=== PATIENT | female | born 1945 | race Caucasian/White ===

== ENCOUNTER 2017-05-12 13:12 | Inpatient (IN) ==
[2017-05-12] MEDS ORDERED: methylPREDNISolone 125 MG/2 ML VIAL IVP ONE (13:24)
[2017-05-12] MEDS ORDERED: Ipratropium/Albuterol Neb 3 ML IH ONE (13:24)
--- NOTE | 2017-05-12 13:53 | Emergency Department Note ---
Disposition Clinical Impression: Acute exacerbation of chronic obstructive airways disease, HCAP (healthcare- associated pneumonia) Disposition: Admitted As Inpatient Condition: Good Time of Disposition: 16:41 SOB HPI - General Chief Complaint: ED Shortness of Breath/Dyspnea Stated Complaint: "choked on lunch" Time Seen by Provider: 05/12/17 13:18 Source: EMS Mode of arrival: EMS Limitations: no limitations Nursing Notes Reviewed: Yes Vital Signs Reviewed: Yes - History of Present Illness Patient presents to the ED from the long-term stating that she tried to choke on Green beans because the long-term did not give her her breathing treatment, so she thought that that would make them give her one. States she has been having some shortness of breath over the last few days. States that she was diagnosed with pneumonia at [place] and supposedly was placed on antibiotics but has not been feeling any better since then. He cannot find any antibiotics in her medical record. She denies any fever. Does state she has a history of COPD. - Related Data Home Medications Medication Instructions Recorded Confirmed Acetaminophen [Tylenol] 650 mg PO Q4HR PRN 08/05/15 05/12/17 B Complex with Vitamin C [Vitamin 1 each PO DAILY 08/05/15 05/12/17 B-Complex with Vit C] Dorzolamide [Trusopt] 1 drop BOTH EYES DAILY 08/05/15 05/12/17 Guaifenesin [Mucinex] 600 mg PO Q12H PRN 08/05/15 05/12/17 Insulin DETEMIR [Levemir] 60 unit SQ HS 08/05/15 05/12/17 Ipratropium Neb [Atrovent Neb] 0.5 mg IH Q4HR PRN 08/05/15 05/12/17 Ipratropium/Albuterol Neb [Duoneb] 3 ml IH Q4H PRN 08/05/15 05/12/17 Latanoprost [Xalatan] 1 drop BOTH EYES HS 08/05/15 05/12/17 Loperamide [Imodium] 2 mg PO PER PKG DI PRN 08/05/15 05/12/17 Loratadine [Claritin] 10 mg PO DAILY PRN 08/05/15 05/12/17 Oxygen 2 l NS AD 08/05/15 05/12/17 Polyethylene Glycol 3350 [MiraLAX] 17 gm PO DAILY PRN 08/05/15 05/12/17 Prochlorperazine Maleate 5 mg PO Q8HR PRN 08/05/15 05/12/17 [Compazine] Trospium Chloride 20 mg PO BID 08/05/15 05/12/17 Atorvastatin Calcium [Lipitor] 20 mg PO HS 05/12/17 05/12/17 Brinzolamide 1% [Azopt] 1 drop BOTH EYES BID 05/12/17 05/12/17 Dextrose [Glucose] 33 gm PO AD PRN 05/12/17 05/12/17 Escitalopram Oxalate 5 mg PO DAILY 05/12/17 05/12/17 Fluticasone/Vilanterol [Breo 1 each IH DAILY 05/12/17 05/12/17 Ellipta 100-25 Mcg INH] Furosemide [Lasix] 20 mg PO DAILY PRN 05/12/17 05/12/17 Gabapentin [Neurontin] 300 mg PO TID 05/12/17 05/12/17 Glucagon,Human Recombinant 1 mg IM ONCE PRN 05/12/17 05/12/17 [Glucagon Emergency Kit] Guaifenesin [Tussin] 200 mg PO Q6H PRN 05/12/17 05/12/17 Insulin LISPRO [HumaLOG] 2 - 10 unit SQ BID 05/12/17 05/12/17 MOM Conc [Milk of Magnesia Conc] 30 ml PO DAILY PRN 05/12/17 05/12/17 Mag Hydrox/Al Hydrox/Simeth 10 ml PO Q4H PRN 05/12/17 05/12/17 [Antacid Suspension] OxyCODONE/APAP 5/325 [Percocet 1 each PO Q6HR PRN 05/12/17 05/12/17 5/325 MG] Phenyleph/Pramoxin/Glycr/W.pet 1 appl RC Q4H PRN 05/12/17 05/12/17 [Preparation H Cream] Polyvinyl Alcohol [Artificial 1 drop BOTH EYES Q6H PRN 05/12/17 05/12/17 Tears] levoFLOXacin [Levaquin] 500 mg PO DAILY 05/12/17 05/12/17 Previous Rx's Medication Instructions Recorded Lisinopril [Zestril] 40 mg PO DAILY #30 tablet 08/10/15 Metoprolol XL (24 HR) Succ [Toprol 25 mg PO DAILY #30 tab.er.24h 08/10/15 XL] Allergies Allergy/AdvReac Type Severity Reaction Status Date / Time aspirin [ASA] Allergy Rash Verified 05/12/17 13:21 Penicillins [PCN] Allergy Rash Verified 05/12/17 13:21 All systems ED: reviewed and negative except as stated. Constitutional: Denies: fever Respiratory: Reports: cough, dyspnea, wheezes, sputum production Gastrointestinal: Reports: constipation Past Medical History - Past Medical History Attestation: Yes The following information was validated with the patient. 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 - Social History Smoking Status: Former smoker Smokeless Tobacco Status: No Alcohol use: Reports: none Drug use: Reports: none Physical Exam - General Limitations: no limitations General appearance: alert, in no apparent distress - Head Head exam: atraumatic, normocephalic, normal inspection - Eye Eye exam: Present: normal appearance, PERRL, EOMI - ENT ENT exam: normal exam, normal oropharynx, mucous membranes moist - Neck Neck exam: Present: normal inspection, full ROM, trachea midline - Chest Chest inspection: Present: normal inspection, symmetric chest wall rise - Respiratory Respiratory exam: Present: wheezes. Absent: normal lung sounds bilaterally, respiratory distress - Cardiovascular Cardiovascular exam: Present: regular rate, normal rhythm, normal heart sounds - Abdominal Exam Abdominal exam: Present: soft, Non-Tender, distention (but obese). Absent: tenderness, guarding, rebound - Extremities Exam Extremities exam: Present: normal inspection, full ROM, pedal edema (trace) Course Course Narrative: Patient presenting with shortness of breath. States that she was treated for pneumonia recently with antibiotics, but we cannot find any record of this. We will check a chest x-ray, labs and likely admit. Vital Signs Temperature 98.9 F 05/12/17 13:17 Pulse Rate 92 05/12/17 13:17 Respiratory Rate 18 05/12/17 13:17 Blood Pressure 107/79 05/12/17 13:17 O2 Sat by Pulse Oximetry 100 05/12/17 13:17 Temperature 99.5 F 05/12/17 17:38 Pulse Rate 100 05/12/17 17:38 Respiratory Rate 20 05/12/17 17:38 Blood Pressure 156/79 05/12/17 17:38 O2 Sat by Pulse Oximetry 94 05/12/17 17:38 Oxygen Delivery Oxygen Delivery Room Air Shortness of Breath/Dyspnea - Medical Records Medical records reviewed: Yes I reviewed the patient's medical records. - Lab Data Lab results reviewed: Yes I reviewed the patient's lab results. Result diagrams: 05/12/17 13:55 05/12/17 13:55 Lab Results 05/12/17 05/12/17 05/12/17 Range/Units 13:55 13:55 13:55 WBC 9.0 (4.3-11.1) K/mcL RBC 4.13 (3.82-4.97) M/mcL Hgb 12.0 (11.5-15.4) g/dL Hct 39.6 (35.3-44.9) % MCV 95.9 (83.0-100.0) fL MCH 29.1 (28.0-33.3) pg MCHC 30.3 L (31.6-35.5) g/dL RDW 13.0 (11.5-14.5) % Plt Count 231 (140-400) K/mcL MPV 10.2 (9.4-12.4) fL Seg Neutrophils % 68.0 % Band Neutrophils % 2.0 (0-4) % Lymphocytes % 18.0 % Monocytes % 7.0 % Eosinophils % 4.0 % Basophils % 1.0 % Neutrophils # 6.3 (1.6-8.9) K/mcL Lymphocytes # 1.6 (0.6-4.6) K/mcL Monocytes # 0.6 (0.0-1.3) K/mcL Eosinophils # 0.4 (0.0-0.6) K/mcL Basophils # 0.1 (0.0-0.2) K/mcL Platelet Estimate Normal (Normal) PT 11.6 (9.4-12.1) Seconds INR 1.1 APTT 27.6 (26.0-36.0) Seconds Sodium 142 (136-145) mEq/L Potassium 4.6 (3.5-5.1) mEq/L Chloride 109 H (98-107) mEq/L Carbon Dioxide 28 (23-29) mEq/L BUN 21 (8-23) mg/dL Creatinine 1.21 H (0.60-1.20) mg/dL Est GFR ( Amer) 53 L (> 60) Est GFR (Non-Af Amer) 44 L (> 60) BUN/Creatinine Ratio 17 (6-26) Glucose 153 H (70-105) mg/dL Calculated Osmolality 300 (280-300) Lactic Acid (0.5-2.2) mmol/L Calcium 9.7 (8.6-10.3) mg/dL Troponin I (< 0.04) ng/mL B-Natriuretic Peptide (Less than 100) pg/mL Urine Color (Yellow) Urine Clarity (Clear) Urine pH (5.0-8.0) pH Units Ur Specific [place] (1.010-1.025) Urine Protein (Neg-Trace) mg/dL Urine Glucose (UA) (Normal) mg/dL Urine Ketones (Negative) mg/dL Urine Blood (Negative) Urine Nitrite (Negative) Urine Bilirubin (Negative) Urine Urobilinogen (Normal) mg/dL Ur Leukocyte Esterase (Negative) Ur Culture Indicated? (NO) 05/12/17 05/12/17 05/12/17 Range/Units 13:55 13:55 13:55 WBC (4.3-11.1) K/mcL RBC (3.82-4.97) M/mcL Hgb (11.5-15.4) g/dL Hct (35.3-44.9) % MCV (83.0-100.0) fL MCH (28.0-33.3) pg MCHC (31.6-35.5) g/dL RDW (11.5-14.5) % Plt Count (140-400) K/mcL MPV (9.4-12.4) fL Seg Neutrophils % % Band Neutrophils % (0-4) % Lymphocytes % % Monocytes % % Eosinophils % % Basophils % % Neutrophils # (1.6-8.9) K/mcL Lymphocytes # (0.6-4.6) K/mcL Monocytes # (0.0-1.3) K/mcL Eosinophils # (0.0-0.6) K/mcL Basophils # (0.0-0.2) K/mcL Platelet Estimate (Normal) PT (9.4-12.1) Seconds INR APTT (26.0-36.0) Seconds Sodium (136-145) mEq/L Potassium (3.5-5.1) mEq/L Chloride (98-107) mEq/L Carbon Dioxide (23-29) mEq/L BUN (8-23) mg/dL Creatinine (0.60-1.20) mg/dL Est GFR ( Amer) (> 60) Est GFR (Non-Af Amer) (> 60) BUN/Creatinine Ratio (6-26) Glucose (70-105) mg/dL Calculated Osmolality (280-300) Lactic Acid 1.7 (0.5-2.2) mmol/L Calcium (8.6-10.3) mg/dL Troponin I < 0.03 (< 0.04) ng/mL B-Natriuretic Peptide 29 (Less than 100) pg/mL Urine Color (Yellow) Urine Clarity (Clear) Urine pH (5.0-8.0) pH Units Ur Specific [place] (1.010-1.025) Urine Protein (Neg-Trace) mg/dL Urine Glucose (UA) (Normal) mg/dL Urine Ketones (Negative) mg/dL Urine Blood (Negative) Urine Nitrite (Negative) Urine Bilirubin (Negative) Urine Urobilinogen (Normal) mg/dL Ur Leukocyte Esterase (Negative) Ur Culture Indicated? (NO) 05/12/17 Range/Units 14:10 WBC (4.3-11.1) K/mcL RBC (3.82-4.97) M/mcL Hgb (11.5-15.4) g/dL Hct (35.3-44.9) % MCV (83.0-100.0) fL MCH (28.0-33.3) pg MCHC (31.6-35.5) g/dL RDW (11.5-14.5) % Plt Count (140-400) K/mcL MPV (9.4-12.4) fL Seg Neutrophils % % Band Neutrophils % (0-4) % Lymphocytes % % Monocytes % % Eosinophils % % Basophils % % Neutrophils # (1.6-8.9) K/mcL Lymphocytes # (0.6-4.6) K/mcL Monocytes # (0.0-1.3) K/mcL Eosinophils # (0.0-0.6) K/mcL Basophils # (0.0-0.2) K/mcL Platelet Estimate (Normal) PT (9.4-12.1) Seconds INR APTT (26.0-36.0) Seconds Sodium (136-145) mEq/L Potassium (3.5-5.1) mEq/L Chloride (98-107) mEq/L Carbon Dioxide (23-29) mEq/L BUN (8-23) mg/dL Creatinine (0.60-1.20) mg/dL Est GFR ( Amer) (> 60) Est GFR (Non-Af Amer) (> 60) BUN/Creatinine Ratio (6-26) Glucose (70-105) mg/dL Calculated Osmolality (280-300) Lactic Acid (0.5-2.2) mmol/L Calcium (8.6-10.3) mg/dL Troponin I (< 0.04) ng/mL B-Natriuretic Peptide (Less than 100) pg/mL Urine Color Yellow (Yellow) Urine Clarity Clear (Clear) Urine pH 6.0 (5.0-8.0) pH Units Ur Specific [place] 1.023 (1.010-1.025) Urine Protein Negative (Neg-Trace) mg/dL Urine Glucose (UA) Normal (Normal) mg/dL Urine Ketones Negative (Negative) mg/dL Urine Blood Negative (Negative) Urine Nitrite Negative (Negative) Urine Bilirubin Negative (Negative) Urine Urobilinogen Normal (Normal) mg/dL Ur Leukocyte Esterase Negative (Negative) Ur Culture Indicated? NO (NO) - Radiology Data Radiology results reviewed: Yes I reviewed the patient's radiology results. - EKG Data EKG attestation: Yes I reviewed and interpreted this EKG. EKG results narrative: Sinus rhythm, rate 88, MD interval 151, QRS 96, QTC 385, and normal axis, low voltage in precordial leads but no acute ischemic changes Attestation Statement - Attestation Attestation: I examined this patient and my medical decision-making was reviewed with the Resident Physician, Dr. Arellano. I agree with the documented findings, disposition and treatment plan as described except to the extent set forth below. Patient is a 72-year-old morbidly obese white female who resides in an extended care facility and has a history of COPD he was brought to the emergency department today by EMS for complaints of generalized fatigue, shortness of breath and cough. She was diagnosed with pneumonia around [place] time and states she completed a round of antibiotics but has not been feeling any better. She was acting out at the long-term today in an attempt to get a breathing treatment and states that she choked on her green beans to get the attention of nursing staff. Patient was in no acute respiratory distress on arrival, on 3 L nasal cannula oxygen room air sats 92-94%. I agree patient's physical exam findings as documented. X-ray shows a right lower lobe pneumonia, patient will be started on IV antibiotics and admitted for pneumonia and acute exacerbation of COPD.
[2017-05-12 14:05] LABS: Hematocrit 39.6 % (35.3-44.9); Mean Corpuscular HGB Conc 30.3 g/dL (31.6-35.5); Mean Corpuscular Hemoglobin 29.1 pg (28.0-33.3); Mean Corpuscular Volume 95.9 fL (83.0-100.0); Mean Platelet Volume 10.2 fL (9.4-12.4); Platelet Count 231 K/mcL (140-400); Red Blood Count 4.13 M/mcL (3.82-4.97)
[2017-05-12 14:15] LABS: INR 1.1; Prothrombin Time 11.6 Seconds (9.4-12.1)
[2017-05-12 14:17] LABS: Activated Partial Thrombo Time 27.6 Seconds (26.0-36.0)
[2017-05-12 14:22] LABS: Calcium 9.7 mg/dL (8.6-10.3); Potassium 4.6 mEq/L (3.5-5.1)
[2017-05-12 14:25] LABS: Bilirubin,Urine Negative (Negative); Blood,Urine Negative (Negative); Clarity,Urine Clear (Clear); Color,Urine Yellow (Yellow); Glucose,Urine (UA) Normal (Normal); Ketones,Urine Negative (Negative); Leukocyte Esterase,Urine Negative (Negative); Nitrite,Urine Negative (Negative); Protein,Urine Negative (Neg-Trace); Specific Gravity,Urine 1.023 (1.010-1.025); Urobilinogen,Urine Normal (Normal)
[2017-05-12] MEDS ORDERED: Levofloxacin 750 MG/150 ML 750 MG/150 ML BAG IVPB ONE (14:36)
[2017-05-12 14:38] LABS: Basophils # 0.1 K/mcL (0.0-0.2); Eosinophils # 0.4 K/mcL (0.0-0.6); Lymphocytes # 1.6 K/mcL (0.6-4.6); Monocytes # 0.6 K/mcL (0.0-1.3); Neutrophils # 6.3 K/mcL (1.6-8.9); Platelet Estimate Normal (Normal)
[2017-05-12] MEDS ORDERED: 0.9 % Sodium Chloride 1,000 ML IVC ONE (14:48)
--- NOTE | 2017-05-12 16:35 | Internal Med History&Physical ---
Date of Encounter: 06/06/17 Time of Encounter: 16:34 Assessment and Plan (1) Acute exacerbation of chronic obstructive airways disease Status: Acute - SOB due to *COpd exacerbation caused by URTI vs allergen exposure vs medication nonocompliance *Pneumonia - infiltrate on CXR PLAN: - Aerosols q 4 hr and PRN SOB - Solu-medrol 40 mg IV q 6 hr - O2 to keep SpO2 higher than 92% (SpO higher than 95% if CAD) - CBCD, BMP in AM - Sputum Gram stain, C+S - Tylenol 650 mg PO q 4-6 hr PRN pain/fever - Heparin 5000 U SQ BID - Home meds - check the list and restart - ABs (2) HCAP (healthcare-associated pneumonia) Status: Acute - SOB due to *Pneumonia Previous ABx Tx- , Structural lung disease- - Blood Cx - Urine Legionella antigen - Antibiotics - CBCD, CMP in AM - Tylenol 650 mg PO q 4-6 hr PRN pain or fever - Home meds - check the list and restart accordingly - Heparin 5000 U SQ BID (3) Diabetes Status: Acute Qualifiers: Diabetes mellitus type: type 2 Diabetes mellitus complication status: with kidney complications Diabetes mellitus complication detail: with chronic kidney disease Diabetes mellitus fdc insulin use: with superintendent marine oil terminal use Chronic kidney disease stage: stage 3 (moderate) Qualified Code(s): E11.22 - Type 2 diabetes mellitus with diabetic chronic kidney disease; N18.3 - Chronic kidney disease, stage 3 (moderate); N18.3 - Chronic kidney disease, stage 3 ( moderate); Z79.4 - emt intermediate (current) use of insulin; Z79.4 - emt intermediate ( current) use of insulin; Z79.4 - MCFP (current) use of insulin; Z79.4 - MCFP (current) use of insulin (4) Congestive heart failure Status: Acute Cont home meds Qualifiers: Congestive heart failure type: diastolic Congestive heart failure chronicity: acute on chronic Qualified Code(s): I50.33 - Acute on chronic diastolic (congestive) heart failure (5) DVT prophylaxis Status: Acute Heparin 5000 BID , SCDs Internal Medicine - H&P: HPI Chief complaint: SOB History of present illness: Ms. Moon is a 72 year old female withh h/o COPD presents to the ED from the senior living stating that she tried to choke on Green beans because the senior living did not give her her breathing treatment, so she thought that that would make them give her one. States she has been having some shortness of breath over the last few days. States that she was diagnosed with pneumonia at [place] and supposedly was placed on antibiotics but has not been feeling any better since then. He cannot find any antibiotics in her medical record. She denies any fever. Does state she has a history of COPD. Past Med Surg Social Fam HX - Past Medical History Medical history: CHF, COPD, coronary artery disease, diabetes, glaucoma, hyperlipidemia, hypertension, osteoporosis, renal disease Psychiatric history: anxiety, depression - Past Surgical History Surgical History: cataract, herniorrhaphy - Social History Smoking Status: Former smoker Smokeless Tobacco Status: No Alcohol use: none Drug use: none - Family History Father Living Status: Hx Family Endocrine Disorder: Yes (Diabetes) Mother Living Status: Hx Family Neurologic Disorders: Yes (Alzheimer's) Internal Medicine - H&P: Meds Acetaminophen [Tylenol] 650 mg PO Q4HR PRN 08/05/15 [History] B Complex with Vitamin C [Vitamin B-Complex with Vit C] 1 each PO DAILY [History] Dorzolamide [Trusopt] 1 drop BOTH EYES DAILY 08/05/15 [History] Guaifenesin [Mucinex] 600 mg PO Q12H PRN 08/05/15 [History] Insulin DETEMIR [Levemir] 60 unit SQ HS 08/05/15 [History] Ipratropium Neb [Atrovent Neb] 0.5 mg IH Q4HR PRN 08/05/15 [History] Ipratropium/Albuterol Neb [Duoneb] 3 ml IH Q4H PRN 08/05/15 [History] Latanoprost [Xalatan] 1 drop BOTH EYES HS 08/05/15 [History] Loperamide [Imodium] 2 mg PO PER PKG DI PRN 08/05/15 [History] Loratadine [Claritin] 10 mg PO DAILY PRN 08/05/15 [History] Oxygen 2 l NS AD 08/05/15 [History] Polyethylene Glycol 3350 [MiraLAX] 17 gm PO DAILY PRN 08/05/15 [History] Prochlorperazine Maleate [Compazine] 5 mg PO Q8HR PRN 08/05/15 [History] Trospium Chloride 20 mg PO BID 08/05/15 [History] Lisinopril [Zestril] 40 mg PO DAILY #30 tablet 08/10/15 [Rx] Metoprolol XL (24 HR) Succ [Toprol Xl] 25 mg PO DAILY #30 tab.er.24h 08/10/15 [ Rx] Atorvastatin Calcium [Lipitor] 20 mg PO HS 05/12/17 [History] Brinzolamide 1% [Azopt] 1 drop BOTH EYES BID 05/12/17 [History] Dextrose [Glucose] 33 gm PO AD PRN 05/12/17 [History] Escitalopram Oxalate 5 mg PO DAILY 05/12/17 [History] Fluticasone/Vilanterol [Breo Ellipta 100-25 Mcg INH] 1 each IH DAILY 05/12/17 [ History] Furosemide [Lasix] 20 mg PO DAILY PRN 05/12/17 [History] Gabapentin [Neurontin] 300 mg PO TID 05/12/17 [History] Glucagon,Human Recombinant [Glucagon Emergency Kit] 1 mg IM ONCE PRN 05/12/17 [ History] Guaifenesin [Tussin] 200 mg PO Q6H PRN 05/12/17 [History] Insulin LISPRO [HumaLOG] 2 - 10 unit SQ BID 05/12/17 [History] MOM Conc [MILK OF MAGNESIA conc] 30 ml PO DAILY PRN 05/12/17 [History] Mag Hydrox/Al Hydrox/Simeth [Antacid Suspension] 10 ml PO Q4H PRN 05/12/17 [ History] OxyCODONE/APAP 5/325 [Percocet 5/325 MG] 1 each PO Q6HR PRN 05/12/17 [History] Phenyleph/Pramoxin/Glycr/W.pet [Preparation H Cream] 1 appl RC Q4H PRN 05/12/17 [History] Polyvinyl Alcohol [Artificial Tears] 1 drop BOTH EYES Q6H PRN 05/12/17 [History] levoFLOXacin [Levaquin] 500 mg PO DAILY 05/12/17 [History] Acetaminophen [Tylenol] 650 mg PO Q6HR PRN tablet 05/15/17 [Rx] Levofloxacin [Levaquin] 500 mg PO DAILY #5 tablet 05/15/17 [Rx] 3 Allergy/AdvReac Type Severity Reaction Status Date / Time aspirin [ASA] Allergy Rash Verified 05/12/17 13:21 Penicillins [PCN] Allergy Rash Verified 05/12/17 13:21 All Systems PM: A 10-system review of systems was performed and is negative for pertinent findings except as documented above in the HPI. - Constitutional Vitals: Temp Pulse Resp BP Pulse Ox 98.9 F 93 14 146/86 95 05/12/17 13:17 05/12/17 16:21 05/12/17 16:30 05/12/17 16:30 05/12/17 16:21 Internal Med - H&P Results - Labs CBC & Chem 7: 05/13/17 01:24 05/15/17 08:46
[2017-05-12] MEDS ORDERED: Ondansetron 4 MG/2 ML VIAL IVP PRN (16:38)
[2017-05-12] MEDS ORDERED: *HR* Morphine 2 MG/ML SYRINGE IVP PRN (16:38)
[2017-05-12] MEDS ORDERED: Ondansetron ODT 4 MG TAB.RAPDIS SL PRN (16:38)
[2017-05-12] MEDS ORDERED: Mag Hydrox/Al Hydrox/Simeth 30 ML UDC PO PRN ×2 (16:38→19:51)
[2017-05-12] MEDS ORDERED: *HR* HYDROmorphone (PF) 1 MG/ML SYRINGE IVP PRN (16:38)
[2017-05-12] MEDS ORDERED: Naloxone 0.4 MG/ML INJ IVP PRN (16:38)
[2017-05-12] MEDS ORDERED: Acetaminophen 325 MG TABLET PO PRN ×2 (16:38→19:51)
[2017-05-12] MEDS ORDERED: Vancomycin 1,000 MG in D5% in Water 250 ML IVPB ONE (16:40)
[2017-05-12] MEDS: 0.9 % Sodium Chloride 1,000 ML IVC SCH (17:48)
[2017-05-12] MEDS: MethylPREDNISolone 40 MG/ML VIAL IVP SCH ×2 (18:23→23:50)
[2017-05-12] MEDS ORDERED: Artificial Tears SOLN 15 ML BOTTLE BOTH EYES PRN (19:51)
[2017-05-12] MEDS ORDERED: GuaiFENesin Liq 200 MG/10 ML UDC PO PRN (19:51)
[2017-05-12] MEDS ORDERED: MOM Conc 10 ML UD.LIQ PO PRN (19:51)
[2017-05-12] MEDS ORDERED: Loratadine 10 MG TABLET PO PRN (19:51)
[2017-05-12] MEDS ORDERED: *HR* OxyCODONE/APAP 5/325 TABLET PO PRN (19:51)
[2017-05-12] MEDS ORDERED: *HR* Dextrose 50 % in Water (Syg) 50 ML SYRINGE IVP PRN (19:55)
[2017-05-12] MEDS ORDERED: Dextrose Gel 15 GM/37.5 ML TUBE PO PRN ×2 (19:55)
[2017-05-12] MEDS ORDERED: D5% in Water 1,000 ML IVC PRN (19:55)
[2017-05-12] MEDS: Ipratropium/Albuterol Neb 3 ML IH SCH ×2 (20:13→22:10)
[2017-05-12] MEDS ORDERED: Insulin LISPRO 300 UNITS/3 ML VIAL SQ SCH (21:00)
[2017-05-12] MEDS: Gabapentin 300 MG CAPSULE PO SCH (22:06)
[2017-05-12] MEDS: Insulin DETEMIR 100 UNIT/ML X5UNITS SQ SCH (22:07)
[2017-05-12] MEDS: Brinzolamide 1% 10 ML BOTTLE BOTH EYES SCH (22:08)
[2017-05-12 23:02] LABS: Bilirubin,Urine Negative (Negative); Blood,Urine Negative (Negative); Clarity,Urine Clear (Clear); Color,Urine Yellow (Yellow); Glucose,Urine (UA) >=1000 mg/dL (Normal); Ketones,Urine Negative (Negative); Leukocyte Esterase,Urine Negative (Negative); Nitrite,Urine Negative (Negative); Protein,Urine Negative (Neg-Trace); Specific Gravity,Urine > 1.030 (1.010-1.025); Urobilinogen,Urine Normal (Normal)
[2017-05-13 01:30] LABS: Hematocrit 38.6 % (35.3-44.9); Hemoglobin 11.7 g/dL (11.5-15.4); Mean Corpuscular HGB Conc 30.3 g/dL (31.6-35.5); Mean Corpuscular Hemoglobin 28.5 pg (28.0-33.3); Mean Corpuscular Volume 94.1 fL (83.0-100.0); Mean Platelet Volume 10.4 fL (9.4-12.4); Platelet Count 235 K/mcL (140-400); Red Cell Distribution Width 12.9 % (11.5-14.5)
[2017-05-13 01:35] LABS: INR 1.1; Prothrombin Time 11.7 Seconds (9.4-12.1)
[2017-05-13 01:38] LABS: Activated Partial Thrombo Time 27.7 Seconds (26.0-36.0)
[2017-05-13 01:44] LABS: Albumin 3.2 g/dL (3.5-5.7); Albumin/Globulin Ratio 1.1 (1.1-2.2); Bilirubin,Total 0.2 mg/dL (0.3-1.0); Calcium 9.7 mg/dL (8.6-10.3); Chol/HDL Ratio 3.9 (0-4.9); Globulin 2.9 g/dL (2.4-3.5); Magnesium 1.6 mg/dL (1.6-2.6); Phosphorous 3.2 mg/dL (2.7-4.5); Potassium 5.4 mEq/L (3.5-5.1); Total Protein 6.1 g/dL (6.4-8.9)
[2017-05-13] MEDS: Ipratropium/Albuterol Neb 3 ML IH SCH ×4 (04:42→22:48)
[2017-05-13] MEDS ORDERED: Insulin Human Regular 10 UNIT in 0.9 % Sodium Chloride 10 ML IV ONE (05:07)
[2017-05-13] MEDS: MethylPREDNISolone 40 MG/ML VIAL IVP SCH ×4 (05:44→23:25)
[2017-05-13] MEDS ORDERED: Insulin LISPRO 300 UNITS/3 ML VIAL SQ SCH (07:30)
[2017-05-13] MEDS: Gabapentin 300 MG CAPSULE PO SCH ×3 (08:19→20:42)
[2017-05-13] MEDS: Metoprolol XL (24 HR) Succ 25 MG TAB.ER.24H PO SCH (08:19)
[2017-05-13] MEDS: Vitamin B Complex/Vit C/Vit E 1 EACH TABLET PO SCH (08:19)
[2017-05-13] MEDS: Brinzolamide 1% 10 ML BOTTLE BOTH EYES SCH ×2 (08:25→20:43)
[2017-05-13] MEDS: Dorzolamide OPTH 10 ML BOTTLE BOTH EYES SCH (08:25)
[2017-05-13] MEDS: Insulin DETEMIR 100 UNIT/ML X5UNITS SQ SCH ×2 (08:25→20:42)
[2017-05-13] MEDS: Insulin LISPRO 300 UNITS/3 ML VIAL SQ SCH ×5 (08:25→20:42)
[2017-05-13] MEDS ORDERED: levoFLOXacin 500 MG TABLET PO SCH (09:00)
[2017-05-13] MEDS: 0.9 % Sodium Chloride 1,000 ML IVC SCH (09:59)
[2017-05-13] MEDS: Vancomycin 1,250 MG in D5% in Water 250 ML IVPB SCH (16:01)
--- NOTE | 2017-05-13 16:08 | Internal Med Progress Note ---
Date of Encounter: 05/13/17 Time of Encounter: 16:05 - Assessment and plan (1) HCAP (healthcare-associated pneumonia) Current Visit: Yes Status: Acute Assessment and plan: Continue broad-spectrum coverage with antibiotics. She still requiring 3.5 L of nasal cannula. Continue to titrate down the oxygen as tolerated await cultures and sensitivities (2) Acute exacerbation of chronic obstructive airways disease Current Visit: Yes Status: Acute Assessment and plan: Initiate breathing treatments with duonebs every 4 to 6 hours while awake monitor respiratory status closely (3) Insulin dependent diabetes mellitus Current Visit: No Status: Chronic Assessment and plan: Continue sliding scale and Accu checks with meals. Emphasized on tight glycemic control given healthcare acquired pneumonia -patient wishes to cooperate - Time Spent With Patient 25 - 35 minutes - Subjective Interval history: Patient extremely teary-eyed. She is frustrated with her multiple pen[facility]entiary visits and did not feel she received the care she needed over there. She does feel short of breath still. Denies any new fevers - Constitutional Vitals: Temp Pulse Resp BP Pulse Ox 98.4 F 93 17 133/73 96 05/13/17 11:59 05/13/17 11:59 05/13/17 11:59 05/13/17 11:59 05/13/17 11:59 Exam: General , Alert , oriented, moderate distress HEENT- PERRLA. EOMI CVS- S1S2 N, No Murmurs, Rubs, gallops, No JVD RS- course rhonchi heard bilaterally across both lung g[place] Abdomen- Soft NT ND, bowel sounds heard across all 4 quadrants Neuro- No Focal deficits appreciated, CN 2-12 intact, Motors- power 5/5 UE, 5/5 LE Bilaterally, Sensations intact Extremeties- 1+ pitting edema and bilateral lower extremities Internal Medicine: Result - Labs CBC & Chem 7: 05/13/17 01:24 05/13/17 01:24 Labs: Short CBC 05/13/17 Range/Units 01:24 WBC 9.5 (4.3-11.1) K/mcL Hgb 11.7 (11.5-15.4) g/dL Hct 38.6 (35.3-44.9) % Plt Count 235 (140-400) K/mcL BMP 05/13/17 01:24 Sodium 136 Potassium 5.4 H Chloride 104 Carbon Dioxide 24 BUN 27 H Creatinine 1.30 H Glucose 446 H Calcium 9.7 Cardiac Enzymes 05/12/17 05/13/17 05/13/17 Range/Units 19:12 01:24 08:28 Troponin I < 0.03 < 0.03 < 0.03 (< 0.04) ng/mL Liver Function 05/13/17 Range/Units 01:24 Total Bilirubin 0.2 L (0.3-1.0) mg/dL AST 11 L (13-39) Units/L ALT 17 (7-52) Units/L Alkaline Phosphatase 90 (34-104) Units/L Albumin 3.2 L (3.5-5.7) g/dL Urine 05/12/17 Range/Units 20:45 Urine Color Yellow (Yellow) Urine Clarity Clear (Clear) Urine pH 6.0 (5.0-8.0) pH Units Ur Specific [place] > 1.030 H (1.010-1.025) Urine Protein Negative (Neg-Trace) mg/dL Urine Glucose (UA) >=1000 H (Normal) mg/dL - ABG Interpretation ABG results: PT/INR, D-dimer PT 11.7 Seconds (9.4-12.1) 05/13/17 01:24 Consult Discharge Plan - Plan Referrals: Lauro Hogue MD [Primary Care Provider] -
--- NOTE | 2017-05-13 16:49 | Electrocardiograph Report ---
[place] [id number] Test Date: 2017-05-12 Pat Name: Marlene Moon Department: 103 Room: [facility] Gender: F Browning Processor: ETELVINA : 1945 Requested By: Jason Arellano Order Number: [id number] Reading MD: Kvng Botello DO Measurements Intervals [place] Rate: 88 P: -44 WI: 151 QRS: 17 QRSD: 96 T: 49 QT: 340 QTc: 385 Interpretive Statements SINUS RHYTHM LOW QRS VOLTAGE IN PRECORDIAL LEADS BASELINE ARTIFACT Electronically Signed On 05-13-2017 16:48:06 EST by Kvng Botello DO
[2017-05-13] MEDS ORDERED: Vancomycin 1,000 MG in D5% in Water 250 ML IVPB SCH (18:00)
[2017-05-14] MEDS: Vancomycin 1,250 MG in D5% in Water 250 ML IVPB SCH (02:35)
[2017-05-14] MEDS: Ipratropium/Albuterol Neb 3 ML IH SCH ×4 (04:36→22:17)
[2017-05-14] MEDS: MethylPREDNISolone 40 MG/ML VIAL IVP SCH ×3 (05:49→18:11)
[2017-05-14] MEDS: Insulin LISPRO 300 UNITS/3 ML VIAL SQ SCH ×4 (07:46→20:47)
[2017-05-14] MEDS: Insulin DETEMIR 100 UNIT/ML X5UNITS SQ SCH ×2 (09:25→20:47)
[2017-05-14] MEDS: Vitamin B Complex/Vit C/Vit E 1 EACH TABLET PO SCH (10:50)
[2017-05-14] MEDS: Metoprolol XL (24 HR) Succ 25 MG TAB.ER.24H PO SCH (10:50)
[2017-05-14] MEDS: Gabapentin 300 MG CAPSULE PO SCH ×3 (10:50→20:47)
[2017-05-14] MEDS: Brinzolamide 1% 10 ML BOTTLE BOTH EYES SCH ×2 (10:51→20:48)
[2017-05-14] MEDS: Dorzolamide OPTH 10 ML BOTTLE BOTH EYES SCH (10:52)
--- NOTE | 2017-05-14 14:26 | Internal Med Progress Note ---
<Rocky Scott - Last Filed: 05/14/17 14:24> Date of Encounter: 05/14/17 Time of Encounter: 09:23 - Assessment and plan (1) HCAP (healthcare-associated pneumonia) Current Visit: Yes Status: Acute Assessment and plan: Continue broad-spectrum coverage with antibiotics. She still requiring 3.5 L of nasal cannula. Continue to titrate down the oxygen as tolerated. Patient is on day 3 of Levaquin and we will now stop the vancomycin and keep her on Levaquin. All blood cultures and influenza swabs were negative. PT and OT have evaluated the patient but patient states that she does not want to be evaluated by them. We are currently trying to set up patient to go back to his nursing home facility as she does not like her current one. We will await social work's recommendations for this. (2) Acute exacerbation of chronic obstructive airways disease Current Visit: Yes Status: Acute Assessment and plan: Initiate breathing treatments with duonebs every 4 to 6 hours while awake Continue 40 mg daily steroids. monitor respiratory status (3) Congestive heart failure Current Visit: No Status: Acute Assessment and plan: Continue home meds Qualifiers: Congestive heart failure type: diastolic Congestive heart failure chronicity: acute on chronic Qualified Code(s): I50.33 - Acute on chronic diastolic (congestive) heart failure (4) Diabetes Current Visit: No Status: Acute Assessment and plan: Continue patient on sliding scale. Will continue to try to get regular Accu- Cheks. Patient is declining these will continue to try. Patient does have history of uncontrolled and noncompliant diabetes. Qualifiers: Diabetes mellitus type: type 2 Diabetes mellitus complication status: with kidney complications Diabetes mellitus complication detail: with chronic kidney disease Diabetes mellitus senior care insulin use: with rat exterminator use Chronic kidney disease stage: stage 3 (moderate) Qualified Code(s): E11.22 - Type 2 diabetes mellitus with diabetic chronic kidney disease; N18.3 - Chronic kidney disease, stage 3 (moderate); N18.3 - Chronic kidney disease, stage 3 ( moderate); Z79.4 - terminal press operator (current) use of insulin; Z79.4 - terminal press operator ( current) use of insulin; Z79.4 - alf (current) use of insulin; Z79.4 - alf (current) use of insulin (5) DVT prophylaxis Current Visit: No Status: Acute Assessment and plan: 5000 units heparin subcutaneous twice a day - Subjective Interval history: Patient states she did well overnight there are no new events that occurred. Says she still having no chest pain or shortness of breath, abdominal pain, changes in bowel movements. Patient states she is still very weak and weight and wets the bed and she does not want to do physical therapy or occupational therapy. She says she is better when she gets her pain medications. Patient says her legs are not hurting as bad as they were. Seems to be getting better. Patient otherwise has no complaints. No overnight events. - Constitutional Vitals: Temp Pulse Resp BP Pulse Ox 97.7 F 97 16 145/79 97 05/14/17 10:50 05/14/17 10:50 05/14/17 10:50 05/14/17 10:50 05/14/17 10:50 General appearance: Present: A&O X 3, morbidly obese, no acute distress, answers questions appropriately - Head Head exam: Present: atraumatic, normocephalic - Eye Eye exam: Present: PERRL, conjuntiva pink, sclera anicteric Pupils: Present: PERRL - Neck Neck exam general surgery: Present: supple, trachea midline. Absent: lymphadenopathy - Respiratory Respiratory exam: Present: decreased breath sounds, wheezes. Absent: accessory muscle use, rales, respiratory distress, rhonchi - Cardiovascular Cardiovascular exam: Present: RRR, +S1, +S2. Absent: diastolic murmur, gallop, rubs, systolic murmur - GI/Abdominal GI/Abdominal exam: Present: normal bowel sounds, soft, no peritoneal signs. Absent: distended, tenderness - Extremities Exam Extremities exam: Present: warm, radial pulses palpable and symmetrical. Absent : calf tenderness, cyanotic, pedal edema - Neurological Exam Neurological exam: Present: CN II-XII intact, oriented X3, no focal deficits. Absent: pronater drift, facial droop, speech deficit - Skin Skin exam: Present: dry, intact Internal Medicine: Result - Labs CBC & Chem 7: 05/13/17 01:24 05/13/17 01:24 - ABG Interpretation ABG results: PT/INR, D-dimer PT 11.7 Seconds (9.4-12.1) 05/13/17 01:24 Consult Discharge Plan - Plan Referrals: Lauro Hogue MD [Primary Care Provider] - <Jeannine Perry - Last Filed: 05/14/17 16:26> Date of Encounter: 05/14/17 - Assessment and plan (1) HCAP (healthcare-associated pneumonia) Current Visit: Yes Status: Acute (2) Acute exacerbation of chronic obstructive airways disease Current Visit: Yes Status: Acute (3) Insulin dependent diabetes mellitus Current Visit: No Status: Chronic - Constitutional Vitals: Temp Pulse Resp BP Pulse Ox 97.7 F 97 16 145/79 97 05/14/17 10:50 05/14/17 10:50 05/14/17 10:50 05/14/17 10:50 05/14/17 10:50 Internal Medicine: Result - Labs CBC & Chem 7: 05/13/17 01:24 05/13/17 01:24 - ABG Interpretation ABG results: PT/INR, D-dimer PT 11.7 Seconds (9.4-12.1) 05/13/17 01:24 - Attending Attestation I saw and evaluated the patient at bedside. I have reviewed the progress note obtained and documented by the resident and personally participated in the mccullough components. I have discussed the case and management of the patient's care. I agree with the findings and plan of care.
[2017-05-14] MEDS ORDERED: Levofloxacin 500 MG/100 ML 500 MG/100 ML BAG IVPB SCH (15:00)
[2017-05-15] MEDS: MethylPREDNISolone 40 MG/ML VIAL IVP SCH ×3 (01:02→11:26)
[2017-05-15] MEDS: Ipratropium/Albuterol Neb 3 ML IH SCH ×2 (04:09→10:25)
[2017-05-15] MEDS: Gabapentin 300 MG CAPSULE PO SCH (09:08)
[2017-05-15] MEDS: Vitamin B Complex/Vit C/Vit E 1 EACH TABLET PO SCH (09:08)
[2017-05-15] MEDS: Insulin DETEMIR 100 UNIT/ML X5UNITS SQ SCH (09:09)
[2017-05-15] MEDS: Metoprolol XL (24 HR) Succ 25 MG TAB.ER.24H PO SCH (09:09)
[2017-05-15] MEDS: Brinzolamide 1% 10 ML BOTTLE BOTH EYES SCH (09:10)
[2017-05-15] MEDS: Dorzolamide OPTH 10 ML BOTTLE BOTH EYES SCH (09:11)
[2017-05-15] MEDS: Insulin LISPRO 300 UNITS/3 ML VIAL SQ SCH ×2 (09:12→11:26)
[2017-05-15 09:42] LABS: Calcium 9.5 mg/dL (8.6-10.3); Potassium 5.1 mEq/L (3.5-5.1)
--- NOTE | 2017-05-15 11:04 | Discharge Summary ---
<Rocky Scott - Last Filed: 05/15/17 13:13> Date of Encounter: 05/15/17 Time of Encounter: 11:03 - Discharge Diagnosis (1) HCAP (healthcare-associated pneumonia) Priority: Primary Status: Acute (2) Acute exacerbation of chronic obstructive airways disease Priority: Secondary Status: Acute (3) Congestive heart failure Priority: Secondary Status: Acute Qualifiers: Congestive heart failure type: diastolic Congestive heart failure chronicity: acute on chronic Qualified Code(s): I50.33 - Acute on chronic diastolic (congestive) heart failure (4) Diabetes Priority: Secondary Status: Acute Qualifiers: Diabetes mellitus type: type 2 Diabetes mellitus complication status: with kidney complications Diabetes mellitus complication detail: with chronic kidney disease Diabetes mellitus care home insulin use: with vermin exterminator use Chronic kidney disease stage: stage 3 (moderate) Qualified Code(s): E11.22 - Type 2 diabetes mellitus with diabetic chronic kidney disease; N18.3 - Chronic kidney disease, stage 3 (moderate); N18.3 - Chronic kidney disease, stage 3 ( moderate); Z79.4 - intermodal customer service (current) use of insulin; Z79.4 - intermodal customer service ( current) use of insulin; Z79.4 - [facility] (current) use of insulin; Z79.4 - intermodal customer service (current) use of insulin (5) DVT prophylaxis Priority: Secondary Status: Acute - Discharge Medications Prescriptions: Levofloxacin [Levaquin] 500 mg PO DAILY #5 tablet Home Medications: Acetaminophen [Tylenol] 650 mg PO Q4HR PRN 08/05/15 [History] B Complex with Vitamin C [Vitamin B-Complex with Vit C] 1 each PO DAILY [History] Dorzolamide [Trusopt] 1 drop BOTH EYES DAILY 08/05/15 [History] Guaifenesin [Mucinex] 600 mg PO Q12H PRN 08/05/15 [History] Insulin DETEMIR [Levemir] 60 unit SQ HS 08/05/15 [History] Ipratropium Neb [Atrovent Neb] 0.5 mg IH Q4HR PRN 08/05/15 [History] Ipratropium/Albuterol Neb [Duoneb] 3 ml IH Q4H PRN 08/05/15 [History] Latanoprost [Xalatan] 1 drop BOTH EYES HS 08/05/15 [History] Loperamide [Imodium] 2 mg PO PER PKG DI PRN 08/05/15 [History] Loratadine [Claritin] 10 mg PO DAILY PRN 08/05/15 [History] Oxygen 2 l NS AD 08/05/15 [History] Polyethylene Glycol 3350 [MiraLAX] 17 gm PO DAILY PRN 08/05/15 [History] Prochlorperazine Maleate [Compazine] 5 mg PO Q8HR PRN 08/05/15 [History] Trospium Chloride 20 mg PO BID 08/05/15 [History] Lisinopril [Zestril] 40 mg PO DAILY #30 tablet 08/10/15 [Rx] Metoprolol XL (24 HR) Succ [Toprol Xl] 25 mg PO DAILY #30 tab.er.24h 08/10/15 [ Rx] Atorvastatin Calcium [Lipitor] 20 mg PO HS 05/12/17 [History] Brinzolamide 1% [Azopt] 1 drop BOTH EYES BID 05/12/17 [History] Dextrose [Glucose] 33 gm PO AD PRN 05/12/17 [History] Escitalopram Oxalate 5 mg PO DAILY 05/12/17 [History] Fluticasone/Vilanterol [Breo Ellipta 100-25 Mcg INH] 1 each IH DAILY 05/12/17 [ History] Furosemide [Lasix] 20 mg PO DAILY PRN 05/12/17 [History] Gabapentin [Neurontin] 300 mg PO TID 05/12/17 [History] Glucagon,Human Recombinant [Glucagon Emergency Kit] 1 mg IM ONCE PRN 05/12/17 [ History] Guaifenesin [Tussin] 200 mg PO Q6H PRN 05/12/17 [History] Insulin LISPRO [HumaLOG] 2 - 10 unit SQ BID 05/12/17 [History] MOM Conc [MILK OF MAGNESIA conc] 30 ml PO DAILY PRN 05/12/17 [History] Mag Hydrox/Al Hydrox/Simeth [Antacid Suspension] 10 ml PO Q4H PRN 05/12/17 [ History] OxyCODONE/APAP 5/325 [Percocet 5/325 MG] 1 each PO Q6HR PRN 05/12/17 [History] Phenyleph/Pramoxin/Glycr/W.pet [Preparation H Cream] 1 appl RC Q4H PRN 05/12/17 [History] Polyvinyl Alcohol [Artificial Tears] 1 drop BOTH EYES Q6H PRN 05/12/17 [History] levoFLOXacin [Levaquin] 500 mg PO DAILY 05/12/17 [History] Acetaminophen [Tylenol] 650 mg PO Q6HR PRN tablet 05/15/17 [Rx] Levofloxacin [Levaquin] 500 mg PO DAILY #5 tablet 05/15/17 [Rx] Allergies/Adverse Reactions: 3 Allergy/AdvReac Type Severity Reaction Status Date / Time aspirin [ASA] Allergy Rash Verified 05/12/17 13:21 Penicillins [PCN] Allergy Rash Verified 05/12/17 13:21 Date of admission: 05/12/17 16:38 Primary care physician: Lauro Hogue MD Consults: 05/13/17 09:47 Consult to Specialties Operator [CONS] Routine Reason for SW Consult: D/C planning 05/13/17 13:47 Consult to Occupational Therapy [CONS] Routine Comment: Evaluate, develop and implement POC Reason for Consult: Eval and treat Consult to Physical Therapy [CONS] Routine Comment: Evaluate, develop and implement POC Reason for Consult: Eval and treat Discharging clinician: Rocky Scott Anticipated date of discharge: 05/15/17 - Patient Status Disposition: Transfer SNF Condition: Good Functional capacity at discharge: uses cane/walker Overall status at discharge: patient is progressing back to baseline - Discharge Instructions Instructions: Chronic Obstructive Pulmonary Disease (DC), Pneumonia (DC) Follow Up With: Lauro Hogue MD [Primary Care Provider] - - Diet and Activity Activity: as per physical therapy, wear oxygen at all times Diet: advance to your usual diet, diabetic diet Interval History: Patient seen and evaluated today. While seeing her she was lying in bed asleep. So that she is not having any other complaints she is not having any shortness of breath or chest pain or fevers or chills or abdominal pain or urinary complaints or changes in bowel movements. She is not having any leg pain or leg swelling. Patient states having no nausea or vomiting. Says nothing has happened overnight. She declined having her insulin as she said she is not a pin cushion and does not want acute being poked. Patient did eat just today and said that she expects her blood sugar to be high. She says that she normally does this not getting insulin and then located on insulin. Her blood sugars will normalize. Patient otherwise having no complaints. There are no overnight events. Hospital course: Ms. Moon is a 72 year old female history of being diagnosed with pneumonia [place] and was placed on antibiotics. Although those were not able to be found on record. Patient presented as she choked on green beans because the intermediate did not give her breathing treatment that she wanted. After being evaluated in the emergency department and they diagnosed her with HCAP. Her chest x-ray did show left lower lobe pneumonia And started her on vancomycin and Levaquin. She is on vancomycin for 3 days while she was here. We will continue the Levaquin for 5 more days so she does a seven-day treatment. Patient did have elevated blood sugars here as she Declining having her insulin given and she said she did not want to be poked anymore. We explained that it is important for her to get the insulin as this does help with her blood sugar problem. Patient did have one episode of hyperkalemia but the insulin has dropped his back to normal. Patient's blood cultures came back with no growth. Were unable to get a sputum culture. She was given heparin for DVT prophylaxis. She also is on Solu-Medrol 40 mg IV every 6 hours. She also got aerosols every 4 hours these is all due to her history of having COPD. Patient did take her last dose of insulin before being discharged. We had to talk her into it due to her having elevated blood sugars which she finally did. We explained the importance of her getting insulin as this does cause worsening issues other places. Patient stated that she first and not want to go back to her original correction facility but social work tried going to other places and I would not accept her. trolley worker did see and speak with the patient and she is okay with going back to her original nursing facility as long as she changes [facility]. This is was worked out through social work and she was able to get a new room and go back to her original facility. Patient is discharged back to her correction facility in stable condition and no other complaints. - Time Spent with Patient Total time spent providing and/or coordinating discharge services: - Constitutional Vitals: Temp Pulse Resp BP Pulse Ox 98.5 F 53 16 130/65 95 05/15/17 07:30 05/15/17 07:30 05/15/17 10:27 05/15/17 07:30 05/15/17 10:27 General appearance: Present: A&O X 3, morbidly obese, no acute distress, answers questions appropriately <Augusto Perrykrisdhruv Beckwith - Last Filed: 05/15/17 15:04> Date of Encounter: 05/15/17 - Discharge Diagnosis (1) HCAP (healthcare-associated pneumonia) Status: Acute (2) Acute exacerbation of chronic obstructive airways disease Status: Acute (3) Insulin dependent diabetes mellitus Status: Chronic Date of admission: 05/12/17 16:38 Primary care physician: Lauro Hogue MD Consults: 05/13/17 09:47 Consult to Specialties Operator [CONS] Routine Reason for SW Consult: D/C planning 05/13/17 13:47 Consult to Occupational Therapy [CONS] Routine Comment: Evaluate, develop and implement POC Reason for Consult: Eval and treat Consult to Physical Therapy [CONS] Routine Comment: Evaluate, develop and implement POC Reason for Consult: Eval and treat Hospital course: Ms. Moon is a 72 year old female - Time Spent with Patient Total time spent providing and/or coordinating discharge services: - Constitutional Vitals: Temp Pulse Resp BP Pulse Ox 98.5 F 57 16 154/66 93 05/15/17 07:30 05/15/17 11:00 05/15/17 11:00 05/15/17 11:00 05/15/17 11:00 - Attending Attestation I saw and evaluated the patient at bedside. I have reviewed the DC summary obtained and documented by the resident and personally participated in the mccullough components. I have discussed the case and management of the patient's care. I agree with the findings and plan of care.
[2017-05-15 11:22] VITALS: BP 154/66
--- NOTE | 2017-05-15 12:21 | Physician Discharge Referral ---
ExtendedCare Referral Info Provider in Charge: Sarah Perry Provider in Charge after Transfer: PCP Institutional Level of Care: Skilled - Diagnosis (1) HCAP (healthcare-associated pneumonia) Priority: Secondary Status: Acute (2) Acute exacerbation of chronic obstructive airways disease Priority: Primary Status: Acute (3) Congestive heart failure Priority: Secondary Status: Acute (4) Diabetes Priority: Secondary Status: Acute (5) DVT prophylaxis Priority: Secondary Status: Acute Prognosis: Good Aware of Diagnosis: Patient Aware of Prognosis: Patient - Transfer Medications Prescriptions: Levofloxacin [Levaquin] 500 mg PO DAILY #5 tablet Home Medications: Acetaminophen [Tylenol] 650 mg PO Q4HR PRN 08/05/15 [History] B Complex with Vitamin C [Vitamin B-Complex with Vit C] 1 each PO DAILY [History] Dorzolamide [Trusopt] 1 drop BOTH EYES DAILY 08/05/15 [History] Guaifenesin [Mucinex] 600 mg PO Q12H PRN 08/05/15 [History] Insulin DETEMIR [Levemir] 60 unit SQ HS 08/05/15 [History] Ipratropium Neb [Atrovent Neb] 0.5 mg IH Q4HR PRN 08/05/15 [History] Ipratropium/Albuterol Neb [Duoneb] 3 ml IH Q4H PRN 08/05/15 [History] Latanoprost [Xalatan] 1 drop BOTH EYES HS 08/05/15 [History] Loperamide [Imodium] 2 mg PO PER PKG DI PRN 08/05/15 [History] Loratadine [Claritin] 10 mg PO DAILY PRN 08/05/15 [History] Oxygen 2 l NS AD 08/05/15 [History] Polyethylene Glycol 3350 [MiraLAX] 17 gm PO DAILY PRN 08/05/15 [History] Prochlorperazine Maleate [Compazine] 5 mg PO Q8HR PRN 08/05/15 [History] Trospium Chloride 20 mg PO BID 08/05/15 [History] Lisinopril [Zestril] 40 mg PO DAILY #30 tablet 08/10/15 [Rx] Metoprolol XL (24 HR) Succ [Toprol Xl] 25 mg PO DAILY #30 tab.er.24h 08/10/15 [ Rx] Atorvastatin Calcium [Lipitor] 20 mg PO HS 05/12/17 [History] Brinzolamide 1% [Azopt] 1 drop BOTH EYES BID 05/12/17 [History] Dextrose [Glucose] 33 gm PO AD PRN 05/12/17 [History] Escitalopram Oxalate 5 mg PO DAILY 05/12/17 [History] Fluticasone/Vilanterol [Breo Ellipta 100-25 Mcg INH] 1 each IH DAILY 05/12/17 [ History] Furosemide [Lasix] 20 mg PO DAILY PRN 05/12/17 [History] Gabapentin [Neurontin] 300 mg PO TID 05/12/17 [History] Glucagon,Human Recombinant [Glucagon Emergency Kit] 1 mg IM ONCE PRN 05/12/17 [ History] Guaifenesin [Tussin] 200 mg PO Q6H PRN 05/12/17 [History] Insulin LISPRO [HumaLOG] 2 - 10 unit SQ BID 05/12/17 [History] MOM Conc [MILK OF MAGNESIA conc] 30 ml PO DAILY PRN 05/12/17 [History] Mag Hydrox/Al Hydrox/Simeth [Antacid Suspension] 10 ml PO Q4H PRN 05/12/17 [ History] OxyCODONE/APAP 5/325 [Percocet 5/325 MG] 1 each PO Q6HR PRN 05/12/17 [History] Phenyleph/Pramoxin/Glycr/W.pet [Preparation H Cream] 1 appl RC Q4H PRN 05/12/17 [History] Polyvinyl Alcohol [Artificial Tears] 1 drop BOTH EYES Q6H PRN 05/12/17 [History] levoFLOXacin [Levaquin] 500 mg PO DAILY 05/12/17 [History] Acetaminophen [Tylenol] 650 mg PO Q6HR PRN tablet 05/15/17 [Rx] Levofloxacin [Levaquin] 500 mg PO DAILY #5 tablet 05/15/17 [Rx] Allergies/Adverse Reactions: 3 Allergy/AdvReac Type Severity Reaction Status Date / Time aspirin [ASA] Allergy Rash Verified 05/12/17 13:21 Penicillins [PCN] Allergy Rash Verified 05/12/17 13:21 - Respiratory Orders Oxygen / L per min (2) Smoking Cessation: Smoking cessation has been advised. For more information, call the [place] Tobacco Quit Line at 2-968-EPKU-NOW. - Ancillary Orders May use pressure relief devices daily prn - Advance Directives Code Status: Full Code - Mobility Orders Chair - Rehabiliation Orders Rehab Potential: Fair Rehab Orders: Evaluation for Physical Therapy, Evaluation for Occupational Therapy - Treatments Skin tear care topically daily PRN per policy - Diet Orders No Concentrated Sweets CERTIFICATION: I certify that the transfer of the above named patient to an Extended Care Facility is necessary for the continuing treatment of the diagnosis listed. The above information is true and accurate reflection of patient's current condition. Confidential - Redisclosure prohibited without a patient's written consent.
[2017-05-15] MEDS ORDERED: Aminoglycoside Consult 1 EACH MC ONE (14:59)
== END 2017-05-15 15:00 | DRG 190 ==
LOC: EMEROO 13:12 → 3NENU 13:12 → SUATTDRO 16:38 → 3NENU 17:43
PROVIDERS: ADMIT Internal Medicine Nephrology; ATTEND Internal Medicine

== ENCOUNTER 2018-02-14 20:39 | Inpatient (IN) ==
[2018-02-14] MEDS ORDERED: 0.9 % Sodium Chloride 1,000 ML IVC ONE (20:52)
[2018-02-14] MEDS ORDERED: *HR* FentaNYL (PF) 100 MCG/2 ML VIAL IVP ONE (20:53)
[2018-02-14 21:13] LABS: Basophils % 0.1 %; Eosinophils % 0.1 %; Hematocrit 39.7 % (35.3-44.9); Hemoglobin 12.6 g/dL (11.5-15.4); Immature Granulocytes % 0.8 % (0-4); Lymphocytes # 1.6 K/mcL (0.6-4.6); Lymphocytes % 9.1 %; Mean Corpuscular HGB Conc 31.7 g/dL (31.6-35.5); Mean Corpuscular Hemoglobin 28.8 pg (28.0-33.3); Mean Corpuscular Volume 90.8 fL (83.0-100.0); Mean Platelet Volume 10.7 fL (9.4-12.4); Monocytes # 0.9 K/mcL (0.0-1.3); Monocytes % 5.1 %; Neutrophils # 14.4 K/mcL (1.6-8.9); Platelet Count 147 K/mcL (140-400); Red Blood Count 4.37 M/mcL (3.82-4.97); Red Cell Distribution Width 13.6 % (11.5-14.5); Segmented Neutrophils % 84.8 %
--- NOTE | 2018-02-14 21:13 | Emergency Department Note ---
Disposition Clinical Impression: Diabetic foot infection Pneumonia Qualifiers: Pneumonia type: due to unspecified organism Laterality: bilateral Lung location : lower lobe of lung Qualified Code(s): J18.1 - Lobar pneumonia, unspecified organism Disposition: Admitted As Inpatient Condition: Good Time of Disposition: 22:58 General Adult HPI - General Chief complaint: ED Extremity Injury, Lower Stated complaint: Toe injury Time Seen by Provider: 02/14/18 20:43 Source: EMS Mode of arrival: EMS Limitations: no limitations - History of Present Illness HPI Narrative: This is a 72-year-old female who is brought in by EMS from the senior living where she lives complaining pain at the right third toe. She states that she struck it on the medial of her wheelchair 10 days ago and that the pain has been worsening since. She states it was x-rayed yesterday or the day before at the senior living and she was told that it was not fractured, but the pain has been worsening. Because of the development of erythema and swelling, she has been started on antibiotic, but the identity of the antibiotic was unclear. Pain Scale: 1 - Related Data Home Medications Medication Instructions Recorded Confirmed B Complex with Vitamin C [Vitamin 1 each PO DAILY 08/05/15 09/16/17 B-Complex with Vit C] Dorzolamide [Trusopt] 1 drop BOTH EYES DAILY 08/05/15 09/16/17 Guaifenesin [Mucinex] 600 mg PO Q12H PRN 08/05/15 09/16/17 Insulin DETEMIR [Levemir] 60 unit SQ HS 08/05/15 09/16/17 Ipratropium Neb [Atrovent Neb] 0.5 mg IH Q4HR PRN 08/05/15 09/16/17 Ipratropium/Albuterol Neb [Duoneb] 3 ml IH Q4H PRN 08/05/15 09/16/17 Latanoprost [Xalatan] 1 drop BOTH EYES HS 08/05/15 09/16/17 Loratadine [Claritin] 10 mg PO DAILY PRN 08/05/15 09/16/17 Oxygen 2 l NS AD 08/05/15 09/16/17 Polyethylene Glycol 3350 [MiraLAX] 17 gm PO DAILY PRN 08/05/15 09/16/17 Trospium Chloride 20 mg PO BID 08/05/15 09/16/17 Brinzolamide 1% [Azopt] 1 drop BOTH EYES BID 05/12/17 09/16/17 Dextrose [Glucose] 33 gm PO AD PRN 05/12/17 09/16/17 Escitalopram Oxalate 10 mg PO DAILY 05/12/17 09/16/17 Fluticasone/Vilanterol [Breo 1 puff IH DAILY 05/12/17 09/16/17 Ellipta 100-25 Mcg INH] Furosemide [Lasix] 20 mg PO DAILY PRN 05/12/17 09/16/17 Gabapentin [Neurontin] 300 mg PO TID 05/12/17 09/16/17 Glucagon,Human Recombinant 1 mg IM ONCE PRN 05/12/17 09/16/17 [Glucagon Emergency Kit] Guaifenesin [Tussin] 200 mg PO Q6H PRN 05/12/17 09/16/17 Insulin LISPRO [HumaLOG] 2 - 10 unit SQ BID 05/12/17 09/16/17 Mag Hydrox/Al Hydrox/Simeth 10 ml PO Q4H PRN 05/12/17 05/12/17 [Antacid Suspension] OxyCODONE/APAP 5/325 [Percocet 1 tab PO Q6HR PRN 05/12/17 09/16/17 5/325 MG] Phenyleph/Pramoxin/Glycr/W.pet 1 appl RC Q4H PRN 05/12/17 09/16/17 [Preparation H Cream] Atorvastatin Calcium [Lipitor] 20 mg PO DAILY 09/16/17 09/16/17 Polyvinyl Alcohol [Artificial 1 drop OP Q6H PRN 09/16/17 09/16/17 Tears] Previous Rx's Medication Instructions Recorded Lisinopril [Zestril] 40 mg PO DAILY #30 tablet 08/10/15 Metoprolol XL (24 HR) Succ [Toprol 25 mg PO DAILY #30 tab.er.24h 08/10/15 Xl] Allergies Allergy/AdvReac Type Severity Reaction Status Date / Time aspirin [ASA] Allergy Rash Verified 02/14/18 20:51 Penicillins [PCN] Allergy Rash Verified 02/14/18 20:51 adhesive tape AdvReac See Verified 02/14/18 20:51 Comments All systems ED: reviewed and negative except as stated. 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 Absent: respiratory distress, wheezes - Cardiovascular Cardiovascular exam: Present: normal rhythm, tachycardia, normal heart sounds - Abdominal Exam Abdominal exam: Present: soft, Non-Tender. Absent: tenderness, distention, guarding, rebound, rigidity - Extremities Exam Extremities exam: Present: other (There is erythema and what appears to be hematoma affecting the right third toe along its entire length. There is mild erythema running up along the dorsal aspect of the right foot.) - Neurological Exam Neurological exam: Present: alert, oriented X3 - Psychiatric Psychiatric exam: Present: normal affect, normal mood - Skin Skin exam: Present: warm, dry, intact, normal color (Except as noted regarding the right foot) Course Course Narrative: This is a 72-year-old female with evaluation concerning for a diabetic foot infection occur associated with trauma of the right third toe. I examined the patient's lungs using bedside ultrasound with the phased-array probe and saw no B-lines. Vital Signs Temperature 99.8 F H 02/14/18 20:45 Pulse Rate 109 02/14/18 20:45 Respiratory Rate 18 02/14/18 20:45 Blood Pressure 150/84 02/14/18 20:45 O2 Sat by Pulse Oximetry 92 02/14/18 20:45 Temperature 99.8 F H 02/14/18 20:45 Pulse Rate 95 02/14/18 22:47 Respiratory Rate 16 02/14/18 22:47 Blood Pressure 144/80 02/14/18 22:47 O2 Sat by Pulse Oximetry 93 02/14/18 22:47 Oxygen Delivery Oxygen Delivery Nasal Cannula Medical Decision Making - MDM Narrative Medical decision making narrative: This is a 72-year-old female with a history of COPD, CHF, and diabetes with what appears to be bilateral lower lobe pneumonia and also a diabetic foot infection secondary to trauma 10 days ago. Because of penicillin allergy, I ordered Zosyn and vancomycin to cover the pneumonia and the diabetic foot infection. I discussed her case with the on-call hospitalist, who accepted her for admission - Lab Data Result diagrams: 02/14/18 21:02 02/14/18 21:02 Lab Results 02/14/18 02/14/18 02/14/18 Range/Units 21:02 21:02 21:02 WBC 17.0 H (4.3-11.1) K/mcL RBC 4.37 (3.82-4.97) M/mcL Hgb 12.6 (11.5-15.4) g/dL Hct 39.7 (35.3-44.9) % MCV 90.8 (83.0-100.0) fL MCH 28.8 (28.0-33.3) pg MCHC 31.7 (31.6-35.5) g/dL RDW 13.6 (11.5-14.5) % Plt Count 147 (140-400) K/mcL MPV 10.7 (9.4-12.4) fL Immature Gran % 0.8 (0-4) % Seg Neutrophils % 84.8 % Lymphocytes % 9.1 % Monocytes % 5.1 % Eosinophils % 0.1 % Basophils % 0.1 % Neutrophils # 14.4 H (1.6-8.9) K/mcL Lymphocytes # 1.6 (0.6-4.6) K/mcL Monocytes # 0.9 (0.0-1.3) K/mcL Eosinophils # 0.0 (0.0-0.6) K/mcL Basophils # 0.0 (0.0-0.2) K/mcL Sodium 135 L (136-145) mEq/L Potassium 4.1 (3.5-5.1) mEq/L Chloride 103 (98-107) mEq/L Carbon Dioxide 24 (23-29) mEq/L BUN 16 (8-23) mg/dL Creatinine 1.12 (0.60-1.20) mg/dL Est GFR ( Amer) 58 L (> 60) Est GFR (Non-Af Amer) 48 L (> 60) BUN/Creatinine Ratio 14 (6-26) Glucose 284 H (70-105) mg/dL Calculated Osmolality 291 (280-300) Lactic Acid 1.2 (0.5-2.2) mmol/L Calcium 9.7 (8.6-10.3) mg/dL Critical Care Time Critical Care Time: Yes Total Critical Care Time: 20 Attestation: 20 minutes of critical care time was invested independent of separately billable procedures
[2018-02-14 21:32] LABS: Calcium 9.7 mg/dL (8.6-10.3); Potassium 4.1 mEq/L (3.5-5.1)
[2018-02-14] MEDS: Meropenem 1,000 MG in Water for inj. (sterile) 20 ML 10 ML IVPB SCH (22:35)
[2018-02-15] MEDS ORDERED: Naloxone 0.4 MG/ML INJ IVP PRN (01:47)
[2018-02-15] MEDS ORDERED: *HR* Dextrose 50 % in Water (Syg) 50 ML SYRINGE IVP PRN (01:48)
[2018-02-15] MEDS ORDERED: D5% in Water 1,000 ML IVC PRN (01:48)
[2018-02-15] MEDS ORDERED: Dextrose Gel 15 GM/37.5 ML TUBE PO PRN ×2 (01:48)
--- NOTE | 2018-02-15 02:28 | Internal Med History&Physical ---
Date of Encounter: 02/15/18 Time of Encounter: 01:30 Internal Medicine - H&P: HPI Chief complaint: Diabetic foot infection Admitted From: Emergency Dept Plans for Post Hospital Care: Home History of present illness: Ms. Moon is a 72 year old female Patient presented to the emergency room for pain in her right foot. She states that about 10 days ago she was getting off the toilet when her foot slipped and hit the wheel of her wheelchair. She states that her toe started to "fester up " and the pain only increased since then. At the [facility] she resides x-rayed and found to not have a fracture, they wrapped her foot but it did not improve the pain. She developed redness and swelling, thought she had an infection and was started on antibiotic. She does not know what antibiotic it was. She has noted bleeding yesterday as well as today from the area though she does not know exactly where the blood was coming from. Because the pain was not improving she came to the emergency room for further evaluation. In the emergency room she was noted to have a white count of 17.0 and a blood sugar of 284. She was noted to be mildly hypoxic and was put on 2 L nasal cannula though she does not use oxygen at the [facility]. Chest x-ray was ordered and showed hazy opacities bilaterally which could suggest interstitial pulmonary edema or developing pneumonia. Right foot x-ray showed soft tissue swelling of the dorsal foot no underlying radiographic abnormality identified. Because of possible infection of the foot and developing pneumonia she was admitted to the hospital for further management. She has an allergy to penicillins, and was started on vancomycin and meropenem in the emergency room. Blood cultures were drawn. Upon my evaluation patient states that she is feeling a little better. She denies chest pain, abdominal pain. She has had some nausea and vomiting but not today. She has also had some constipation while at the [facility], and received some laxatives prior to her arrival here. She had a large bowel movement upon arrival to the floor. I discussed with the patient resuscitation status, she states she does not want to be resuscitated, declining chest compressions and breathing tube if needed. She states "just let me ." Past Med Surg Social Fam HX - Past Medical History Medical history: CHF, COPD, coronary artery disease, diabetes, glaucoma, hepatitis, hyperlipidemia, hypertension, osteoporosis, renal disease Additional medical history: sepsis/pneumonia/anemia/morbid obesity/allergic rhinitis/OA/laceration of abd wall w/foreign body/. enterocolitis d/t c-diff/ UTI's/fx toe left foot/neuropathy/hernias/cor pulmonale/ASHD/dysthmic d/o Psychiatric history: anxiety, depression - Past Surgical History Surgical History: cataract, herniorrhaphy Additional surgical history: non healing surgical wound - Social History Smoking Status: Former smoker Smokeless Tobacco Status: No Alcohol use: none Drug use: none - Family History Father Family Member Ethnicity: Non- Living Status: Age at : 76 Cause of : heart/diabete Hx Family Cardiac Disorders: Yes Hx Family Respiratory Disorders: No Hx Family Cancer: No Hx Family GI Disorders: No Hx Family Genitourinary Disorders: No Hx Family Endocrine Disorder: Yes Hx Family Musculoskeletal Disorders: No Hx Family Neuromuscular Disorders: No Hx Family Neurologic Disorders: No Hx Family HEENT Disorders: No Hx Family Autoimmune Disorders: No Hx Family Reproductive Disorders: No Hx Family Psychosocial Disorders: No Hx Family Medical Disorders: No Mother Family Member Ethnicity: Non- Living Status: Age at : 90 Cause of : Cardiac Hx Family Cardiac Disorders: Yes Hx Family Respiratory Disorders: Yes Hx Family Cancer: No Hx Family GI Disorders: No Hx Family Genitourinary Disorders: No Hx Family Endocrine Disorder: No Hx Family Musculoskeletal Disorders: No Hx Family Neuromuscular Disorders: No Hx Family Neurologic Disorders: No Hx Family HEENT Disorders: No Hx Family Autoimmune Disorders: No Hx Family Psychosocial Disorders: No Hx Family Medical Disorders: No Internal Medicine - H&P: Meds B Complex with Vitamin C [Vitamin B-Complex with Vit C] 1 each PO DAILY [History] Dorzolamide [Trusopt] 1 drop BOTH EYES DAILY 08/05/15 [History] Guaifenesin [Mucinex] 600 mg PO Q12H PRN 08/05/15 [History] Insulin DETEMIR [Levemir] 60 unit SQ HS 08/05/15 [History] Ipratropium Neb [Atrovent Neb] 0.5 mg IH Q4HR PRN 08/05/15 [History] Ipratropium/Albuterol Neb [Duoneb] 3 ml IH Q4H PRN 08/05/15 [History] Latanoprost [Xalatan] 1 drop BOTH EYES HS 08/05/15 [History] Loratadine [Claritin] 10 mg PO DAILY PRN 08/05/15 [History] Oxygen 2 l NS AD 08/05/15 [History] Polyethylene Glycol 3350 [MiraLAX] 17 gm PO DAILY PRN 08/05/15 [History] Trospium Chloride 20 mg PO BID 08/05/15 [History] Lisinopril [Zestril] 40 mg PO DAILY #30 tablet 08/10/15 [Rx] Metoprolol XL (24 HR) Succ [Toprol Xl] 25 mg PO DAILY #30 tab.er.24h 08/10/15 [ Rx] Brinzolamide 1% [Azopt] 1 drop BOTH EYES BID 05/12/17 [History] Dextrose [Glucose] 33 gm PO AD PRN 05/12/17 [History] Escitalopram Oxalate 10 mg PO DAILY 05/12/17 [History] Fluticasone/Vilanterol [Breo Ellipta 100-25 Mcg INH] 1 puff IH DAILY 05/12/17 [ History] Furosemide [Lasix] 20 mg PO DAILY PRN 05/12/17 [History] Gabapentin [Neurontin] 300 mg PO TID 05/12/17 [History] Glucagon,Human Recombinant [Glucagon Emergency Kit] 1 mg IM ONCE PRN 05/12/17 [ History] Guaifenesin [Tussin] 200 mg PO Q6H PRN 05/12/17 [History] Insulin LISPRO [HumaLOG] 2 - 10 unit SQ BID 05/12/17 [History] Mag Hydrox/Al Hydrox/Simeth [Antacid Suspension] 10 ml PO Q4H PRN 05/12/17 [ History] OxyCODONE/APAP 5/325 [Percocet 5/325 MG] 1 tab PO Q6HR PRN 05/12/17 [History] Phenyleph/Pramoxin/Glycr/W.pet [Preparation H Cream] 1 appl RC Q4H PRN 05/12/17 [History] Atorvastatin Calcium [Lipitor] 20 mg PO DAILY 09/16/17 [History] Polyvinyl Alcohol [Artificial Tears] 1 drop OP Q6H PRN 09/16/17 [History] 3 Allergy/AdvReac Type Severity Reaction Status Date / Time aspirin [ASA] Allergy Rash Verified 02/14/18 20:51 Penicillins [PCN] Allergy Rash Verified 02/14/18 20:51 adhesive tape AdvReac See Verified 02/14/18 20:51 Comments All Systems PM: A 10-system review of systems was performed and is negative for pertinent findings except as documented above in the HPI. - Constitutional Vitals: Temp Pulse Resp BP Pulse Ox 99.6 F 95 15 132/66 92 02/14/18 23:42 02/14/18 23:42 02/14/18 23:42 02/14/18 23:42 02/14/18 23:42 General appearance: Present: cooperative, A&O X 3, pleasant, no acute distress, answers questions appropriately Exam: As above - Head Head exam: Present: normal inspection - Eye Eye exam: Present: EOMI, normal appearance - Respiratory Respiratory exam: Present: decreased breath sounds, CTAB. Absent: respiratory distress, wheezes - Cardiovascular Cardiovascular exam: Present: RRR. Absent: diastolic murmur, systolic murmur - GI/Abdominal GI/Abdominal exam: Present: normal bowel sounds, soft. Absent: tenderness - Extremities Exam Extremities exam: Present: pedal edema, tenderness, warm, radial pulses palpable and symmetrical. Absent: calf tenderness Additional comments: Patient's right third toe is purple with what appears to be skin on the dorsal portion of the toe with a fluid collection underneath it. There is erythema to the mid foot and bilateral lower extremity edema without pitting. Patient is tender in the mid foot as well as at the third right toe. - Neurological Exam Neurological exam: Present: no focal deficits, strengths equal and symetr throughout. Absent: motor sensory deficit, facial droop, speech deficit - Skin Skin exam: Present: dry, erythema, warm Additional comments: Please see detailed foot exam above Internal Med - H&P Results - Labs CBC & Chem 7: 02/15/18 03:08 02/15/18 03:08 - Assessment and plan (1) Diabetic foot infection Current Visit: Yes Status: Acute Assessment and plan: Patient appears to have a superficial skin infection as evidenced by right foot x-ray as well as physical exam findings described above. Continue meropenem and vancomycin Follow-up blood cultures when available Podiatry consult in the morning Monitor for worsening signs of infection (2) Pneumonia Current Visit: Yes Status: Acute Assessment and plan: As evidenced by patient's chest x-ray patient also slightly hypoxic requiring oxygen or is she says at baseline she does not need oxygen. She does have a history of COPD as well. Continue oxygen supplementation as needed Continue meropenem and vancomycin Follow-up blood cultures Continue to monitor Qualifiers: Pneumonia type: due to unspecified organism Laterality: bilateral Lung location: lower lobe of lung Qualified Code(s): J18.1 - Lobar pneumonia, unspecified organism (3) Insulin dependent diabetes mellitus Current Visit: No Status: Chronic Assessment and plan: Monitor blood sugars with meals and at night Diabetic diet Insulin sliding scale with meals as needed Basal insulin at night (4) Acute respiratory failure with hypoxia Current Visit: Yes Status: Acute Assessment and plan: Patient mildly hypoxic requiring 2 L of oxygen. She states she does not use oxygen at the [facility]. Likely secondary to developing pneumonia. Continue oxygen supplementation Breathing treatments as needed (5) DVT prophylaxis Current Visit: No Status: Acute Assessment and plan: Heparin subcutaneous - Time Spent With Patient Total time spent is greater than 50% in coordination of care (as documented) at patient's floor/unit and/or counseling patient: Greater than 35 minutes
[2018-02-15] MEDS ORDERED: Ipratropium/Albuterol Neb 3 ML IH PRN (02:38)
[2018-02-15 03:39] LABS: Hematocrit 34.9 % (35.3-44.9); Mean Corpuscular HGB Conc 31.5 g/dL (31.6-35.5); Mean Corpuscular Hemoglobin 29.1 pg (28.0-33.3); Mean Corpuscular Volume 92.3 fL (83.0-100.0); Mean Platelet Volume 10.9 fL (9.4-12.4); Platelet Count 133 K/mcL (140-400); Red Blood Count 3.78 M/mcL (3.82-4.97); Red Cell Distribution Width 13.7 % (11.5-14.5)
[2018-02-15 03:58] LABS: Calcium 8.8 mg/dL (8.6-10.3); Potassium 3.7 mEq/L (3.5-5.1)
[2018-02-15] MEDS: *HR* Heparin 5,000 UNIT/ML VIAL SQ SCH ×2 (05:38→18:11)
--- NOTE | 2018-02-15 08:25 | Internal Med Progress Note ---
<Ethan Burnham - Last Filed: 02/15/18 15:27> Hospitalist Progress Note - Encounter Date of Encounter: 02/15/18 Time of Encounter: 09:00 - Subjective Interval History: Patient seen and examined up and since morning. She states that overall she is doing well with no complaints of fevers, chills, pain. She was admitted overnight for concerns of right foot cellulitis versus penetrating infection. Podiatry was consulted and is pending recommendations. She states that she does feel better compared to yesterday and has no complaints at this time. - Exam Vitals: Temp Pulse Resp BP Pulse Ox 98.0 F 79 20 152/71 96 02/15/18 07:39 02/15/18 07:39 02/15/18 07:39 02/15/18 07:39 02/15/18 07:39 Exam: Gen.: Vitals noted. No acute distress. AAOx3 HEENT: PERRL/EOMI, oropharynx clear, Normocephalic, atraumatic, MMM Cardiac: RRR, no murmur, +S1/S2 Pulmonary: Moderate wheezing on auscultation on left, otherwise no rales or rhonchi, equal chest expansion Abdomen: soft, nontender, BS noted, no guarding, no rebound. Extremities: no BLE edema, nontender calf, no cyanosis or clubbing. Right foot with bandage in place and gauze wrapping the wound. No surrounding area of erythema and no visible discharge on exam. She is mildly tender to palpation of third toe. Neuro: A&Ox3, moves all extremities, no focal deficits Psych: Appropriate mood and behavior - Assessment and Plan (1) Diabetic foot infection Current Visit: Yes Status: Acute Assessment and Plan: - Evidence of soft tissue swelling as demonstrated on x-ray performed emergency department - Podiatry was consulted, appreciate recommendations - Patient admits to trauma approximately 11 days ago, with increased swelling and erythema - Patient admits to poorly controlled blood sugars - Started on meropenem and vancomycin on admission - WBC elevation of 17 on admission which is improved to 14. Tachycardic at 109 thus meeting sepsis criteria - Patient is clinically improving. Plan - Change antibiotics to cefepime, Flagyl, vancomycin - Blood cultures obtained emergency department, will continue to follow for results - Await podiatry recommendations - Did discuss this case with podiatry this morning inquiring whether or not they wanted more imaging perhaps ESR/CRP, podiatry stated that they would come to evaluate the patient and put in orders independently. (2) Insulin dependent diabetes mellitus Current Visit: Yes Status: Chronic Assessment and Plan: - Most recent A1c of 6.5% in April 2014 - Blood sugars on presentation in the 100 to 200s - Patient does admit to poor glycemic control at home which has been increasing elevated recently likely secondary to infection - Started on insulin sliding scale at home basal insulin on presentation Plan - New A1c with a.m. labs - Continue sliding scale insulin and basal insulin - Diabetic diet (3) Pneumonia Current Visit: Yes Status: Acute Assessment and Plan: - Patient presented with hypoxia and complaint of cough which was nonproductive - Chest x-ray performed in emergency room was suspicious for a possible consolidation bilaterally - Patient did meet sepsis criteria as above however this is more likely related to diabetic infection - Currently tolerating 2-3 L of supplemental oxygen - Started on cefepime, Flagyl, vancomycin as above which should cover pneumonia as well Plan - Continue antibiotics, day #2 - Blood and wound cultures pending - Continue supplemental nausea and as necessary (4) Acute respiratory failure with hypoxia Current Visit: Yes Status: Acute Assessment and Plan: - As above likely secondary to pneumonia versus also consider COPD exacerbation - Patient does deny history of COPD or smoking but does have a history of asthma. - We will continue home inhalers as there is wheezing on auscultation - Patient is not oxygen dependent at home - Currently tolerating 2.5 L via nasal cannula - We will treat underlying infection as above (5) Sepsis Current Visit: Yes Status: Resolved Assessment and Plan: - Patient did present with leukocytosis as well as tachycardia - Resolved as of this morning as heart rate is normalized. WBC count continues to remain elevated at 14 - Likely source at this time is right third toe however also pneumonia possibly seen on chest x-ray performed emergency department - Patient does have symptoms of right foot swelling as well as nonproductive cough - Antibiotics started by the emergency department of meropenem and vancomycin - We will downgrade antibiotics to cefepime, Flagyl, vancomycin today, day #1 - Lactate within normal limits at 1.5 - Further management as above (6) Hypertension Current Visit: Yes Status: Chronic Assessment and Plan: Patient has been moderately elevated blood pressures in the 150s over 70s Continue home medications and continue to monitor. Medications were not given this AM as meds were not yet reconciled (7) DVT prophylaxis Current Visit: Yes Status: Acute Assessment and Plan: Heparin subcutaneously - Time Spent with Patient Total time spent is greater than 50% in coordination of care (as documented) at patient's floor/unit and/or counseling patient: Internal Medicine: Result - Labs CBC & Chem 7: 02/15/18 03:08 02/15/18 03:08 Labs: Short CBC 02/15/18 Range/Units 03:08 WBC 14.1 H (4.3-11.1) K/mcL Hgb 11.0 L D (11.5-15.4) g/dL Hct 34.9 L (35.3-44.9) % Plt Count 133 L (140-400) K/mcL BMP 02/15/18 03:08 Sodium 137 Potassium 3.7 Chloride 107 Carbon Dioxide 26 BUN 17 Creatinine 1.15 Glucose 271 H Calcium 8.8 Consult Discharge Plan - Plan Referrals: Lauro Hogue MD [Primary Care Provider] - <Christina Duncan - Last Filed: 02/15/18 15:59> Hospitalist Progress Note - Encounter Date of Encounter: 02/15/18 - Exam Vitals: Temp Pulse Resp BP Pulse Ox 98.0 F 88 15 156/71 99 02/15/18 10:36 02/15/18 10:36 02/15/18 10:36 02/15/18 10:36 02/15/18 10:36 - Time Spent with Patient Total time spent is greater than 50% in coordination of care (as documented) at patient's floor/unit and/or counseling patient: Internal Medicine: Result - Labs CBC & Chem 7: 02/15/18 03:08 02/15/18 03:08 - Attending Attestation I examined this patient and my medical decision-making was reviewed with the Resident Physician Dr Burnham. I agree with the documented findings, disposition and treatment plan as described except to the extent set forth below /addl details below Ms Moon has pmhx chf, copd, glc, cad, dm, htn and renal disease. She was admitted for right foot pain after a traumatic injury to foot and found to have diabetic foot infection. Podiatry is following as she has evidence of non viable soft tissue of the right third toe and may require surgical debridement or amputation. Currently treated with IV abx and wound cultures pending. She has COPD and noted some sob and wheezing with CXR with bl opacities suggestive of developing pna. She is awake, alert. She has no pain in the foot as she has decreased bl foot sensation at baseline. Denies any fevers or chills, nausea or emesis. She does where o2 prn at home usually about 2L with exertion. She states she ahs COPD and asthma hx. She has had cough, not able to clear sputum at this time and + wheezing. No cp, palpitations, orthopnea, le edema, weight gain or pnd. Denies any other signs of infection including diarrhea, abd pain, ear pain, other wounds. gen- alert, awake,appears stated age cv- reg rate and rhythm, normal s1,s2, no murmurs appreciated, no jvd or pitting le edema lungs- + exp wheezing throught, no crackles, no rhonchi, normal resp effort on O2 nc abd- soft, non tender, non distended, + bs Skin- right toe can be partially visualized with dressing intact, dressing is dry and clean, right third toe with purple discolation, cannot appreciate any drainage, though most of area is covered. neuro- AAOx3, no sensation to toes bl to light touch, just illicits "stinging pain" diabetic right foot infection with involvement of right third toe- iv abx meropenem and vanc on admit given allergies--will change to cefepime+ flagyl + vanc, podiatry with likely surg intervention needed, mri foot pending, cont home gabapentin diabetes mellitus- check a1c, cont 15 units levemir hs and ssi with adjustments as needed bilateral pna / copd exacerbation 2/2 pna- cefepime, duonebs, cont breo and mucinex, prn o2 nc glc- cont home gtts-takes two of same class? cont dorzalamide and confirm htn - bps 120-150s sbp/70s--cont to monitor, prn pain control, cont home BB and acei <Ethan Burnham - Last Filed: 02/15/18 15:27> (3) Pneumonia Qualifiers: Pneumonia type: due to unspecified organism Laterality: bilateral Lung location: lower lobe of lung Qualified Code(s): J18.1 - Lobar pneumonia, unspecified organism (5) Sepsis Qualifiers: Sepsis type: sepsis due to unspecified organism Qualified Code(s): A41.9 - Sepsis, unspecified organism (6) Hypertension Qualifiers: Hypertension type: essential hypertension Qualified Code(s): I10 - Essential (primary) hypertension
[2018-02-15] MEDS ORDERED: Gadolinium Contrast Agent (WT Based) IV PRN (09:30)
--- NOTE | 2018-02-15 09:40 | Podiatry Consult Note ---
Date of Encounter: 02/15/18 Time of Encounter: 09:38 Assessment and Plan (1) Diabetic foot infection Current visit: Yes Status: Acute Patient with elevated WBC. There is evidence of significant nonviable soft tissue at the right third toe. Patient will likely need surgical debridement or toe amputation. MRI ordered of the right foot to evaluate for evidence of osteomyelitis which will help in surgical planning. Patient is aware that she is at risk for loss of the toe. Surgical intervention likely in the next 2 days. Continue IV antibiotics at this time. (2) Insulin dependent diabetes mellitus Current visit: No Status: Chronic Continue blood glucose management per hospitalist. History of Present Illness Chief complaint: foot infection HPI: Ms. Moon is a 72 year old female presenting with right third toe infection. Patient reports that about 11 days ago she injured her toe on her wheelchair. She reports that she had x-rays that did not show any evidence of fracture. She was started on by mouth antibiotic but the appearance of the toe worsened. She stated a became red, swollen, and evidence of fluid. States that she did have nausea over the past several days. She denies any history of nonhealing wounds or infections of her feet. She says that she is unsure of how well her blood glucose is managed but she does live at a facility that manages her medication and her diabetes. Today she feels tired but denies nausea, vomiting , fever, chills. No is painful. She does report that she has severe neuropathy in both feet. Past Med Surg Social Fam HX - Past Medical History Medical history: CHF, COPD, coronary artery disease, diabetes, glaucoma, hepatitis, hyperlipidemia, hypertension, osteoporosis, renal disease Additional medical history: sepsis/pneumonia/anemia/morbid obesity/allergic rhinitis/OA/laceration of abd wall w/foreign body/. enterocolitis d/t c-diff/ UTI's/fx toe left foot/neuropathy/hernias/cor pulmonale/ASHD/dysthmic d/o Psychiatric history: anxiety, depression - Past Surgical History Surgical History: cataract, herniorrhaphy Additional surgical history: non healing surgical wound - Social History Smoking Status: Former smoker Smokeless Tobacco Status: No Alcohol use: none Drug use: none - Family History Father Family Member Ethnicity: Non- Living Status: Age at : 76 Cause of : heart/diabete Hx Family Cardiac Disorders: Yes Hx Family Respiratory Disorders: No Hx Family Cancer: No Hx Family GI Disorders: No Hx Family Genitourinary Disorders: No Hx Family Endocrine Disorder: Yes Hx Family Musculoskeletal Disorders: No Hx Family Neuromuscular Disorders: No Hx Family Neurologic Disorders: No Hx Family HEENT Disorders: No Hx Family Autoimmune Disorders: No Hx Family Reproductive Disorders: No Hx Family Psychosocial Disorders: No Hx Family Medical Disorders: No Mother Family Member Ethnicity: Non- Living Status: Age at : 90 Cause of : Cardiac Hx Family Cardiac Disorders: Yes Hx Family Respiratory Disorders: Yes Hx Family Cancer: No Hx Family GI Disorders: No Hx Family Genitourinary Disorders: No Hx Family Endocrine Disorder: No Hx Family Musculoskeletal Disorders: No Hx Family Neuromuscular Disorders: No Hx Family Neurologic Disorders: No Hx Family HEENT Disorders: No Hx Family Autoimmune Disorders: No Hx Family Psychosocial Disorders: No Hx Family Medical Disorders: No Medications and Allergies B Complex with Vitamin C [Vitamin B-Complex with Vit C] 1 each PO DAILY [History] Dorzolamide [Trusopt] 1 drop BOTH EYES DAILY 08/05/15 [History] Guaifenesin [Mucinex] 600 mg PO Q12H PRN 08/05/15 [History] Insulin DETEMIR [Levemir] 60 unit SQ HS 08/05/15 [History] Ipratropium Neb [Atrovent Neb] 0.5 mg IH Q4HR PRN 08/05/15 [History] Ipratropium/Albuterol Neb [Duoneb] 3 ml IH Q4H PRN 08/05/15 [History] Latanoprost [Xalatan] 1 drop BOTH EYES HS 08/05/15 [History] Loratadine [Claritin] 10 mg PO DAILY PRN 08/05/15 [History] Oxygen 2 l NS AD 08/05/15 [History] Polyethylene Glycol 3350 [MiraLAX] 17 gm PO DAILY PRN 08/05/15 [History] Trospium Chloride 20 mg PO BID 08/05/15 [History] Lisinopril [Zestril] 40 mg PO DAILY #30 tablet 08/10/15 [Rx] Metoprolol XL (24 HR) Succ [Toprol Xl] 25 mg PO DAILY #30 tab.er.24h 08/10/15 [ Rx] Brinzolamide 1% [Azopt] 1 drop BOTH EYES BID 05/12/17 [History] Dextrose [Glucose] 33 gm PO AD PRN 05/12/17 [History] Escitalopram Oxalate 10 mg PO DAILY 05/12/17 [History] Fluticasone/Vilanterol [Breo Ellipta 100-25 Mcg INH] 1 puff IH DAILY 05/12/17 [ History] Furosemide [Lasix] 20 mg PO DAILY PRN 05/12/17 [History] Gabapentin [Neurontin] 300 mg PO TID 05/12/17 [History] Glucagon,Human Recombinant [Glucagon Emergency Kit] 1 mg IM ONCE PRN 05/12/17 [ History] Guaifenesin [Tussin] 200 mg PO Q6H PRN 05/12/17 [History] Insulin LISPRO [HumaLOG] 2 - 10 unit SQ BID 05/12/17 [History] Mag Hydrox/Al Hydrox/Simeth [Antacid Suspension] 10 ml PO Q4H PRN 05/12/17 [ History] OxyCODONE/APAP 5/325 [Percocet 5/325 MG] 1 tab PO Q6HR PRN 05/12/17 [History] Phenyleph/Pramoxin/Glycr/W.pet [Preparation H Cream] 1 appl RC Q4H PRN 05/12/17 [History] Atorvastatin Calcium [Lipitor] 20 mg PO DAILY 09/16/17 [History] Polyvinyl Alcohol [Artificial Tears] 1 drop OP Q6H PRN 09/16/17 [History] 3 Allergy/AdvReac Type Severity Reaction Status Date / Time aspirin [ASA] Allergy Rash Verified 02/14/18 20:51 Penicillins [PCN] Allergy Rash Verified 02/14/18 20:51 adhesive tape AdvReac See Verified 02/14/18 20:51 Comments All Systems Reviewed: The remainder of the systems were reviewed and are negative Physical Exam - Constitutional Vitals: Temp Pulse Resp BP Pulse Ox 98.0 F 79 20 152/71 96 02/15/18 07:39 02/15/18 07:39 02/15/18 07:39 02/15/18 07:39 02/15/18 07:39 General appearance: morbidly obese Exam: Vascular: DP and PT 2+ bilateral. Capillary refill less than 3 seconds all digits. Moderate edema bilateral lower extremity. Right forefoot warm to touch. Dermatology: Right third toe with erythema and edema. There is a bulla to the entire dorsal aspect of the digit. Once the wrist, there was a significant amount of fibrotic tissue and drainage. Musculoskeletal: No gross osseous abnormality. Right third toe pain with palpation. Neuro: Sensation is grossly diminished bilateral. Results - Labs Result Diagrams: 02/15/18 03:08 02/15/18 03:08 Labs: Abnormal lab results WBC 14.1 K/mcL (4.3-11.1) H 02/15/18 03:08 RBC 3.78 M/mcL (3.82-4.97) L 02/15/18 03:08 Hgb 11.0 g/dL (11.5-15.4) L D 02/15/18 03:08 Hct 34.9 % (35.3-44.9) L 02/15/18 03:08 MCHC 31.5 g/dL (31.6-35.5) L 02/15/18 03:08 Plt Count 133 K/mcL (140-400) L 02/15/18 03:08 Neutrophils # 14.4 K/mcL (1.6-8.9) H 02/14/18 21:02 Est GFR ( Amer) 56 (> 60) L 02/15/18 03:08 Est GFR (Non-Af Amer) 47 (> 60) L 02/15/18 03:08 Glucose 271 mg/dL (70-105) H 02/15/18 03:08 H & H 02/15/18 Range/Units 03:08 Hgb 11.0 L D (11.5-15.4) g/dL Hct 34.9 L (35.3-44.9) % All other labs normal. Consult Discharge Plan - Plan Referrals: Lauro Hogue MD [Primary Care Provider] -
[2018-02-15] MEDS: Insulin LISPRO 300 UNITS/3 ML VIAL SQ SCH ×4 (10:09→21:58)
[2018-02-15] MEDS: Meropenem 1,000 MG in Water for inj. (sterile) 20 ML 10 ML IVPB SCH (10:19)
[2018-02-15] MEDS ORDERED: *HR* LORazepam 2 MG/ML VIAL IVP ONE (13:25)
[2018-02-15] MEDS ORDERED: Artificial Tears SOLN 15 ML BOTTLE OP PRN (13:44)
[2018-02-15] MEDS: Gabapentin 300 MG CAPSULE PO SCH ×2 (15:48→21:50)
[2018-02-15] MEDS: MetroNIDAZOLE 500 MG/100 ML 500 MG/100 ML BAG IVPB SCH ×2 (15:48→23:20)
[2018-02-15] MEDS: Cefepime HCl 2,000 MG in Water for inj. (sterile) 20 ML 20 ML IVP SCH (15:49)
[2018-02-15] MEDS ORDERED: Ondansetron 4 MG/2 ML VIAL IVP PRN (20:25)
[2018-02-15] MEDS ORDERED: Brinzolamide 1% 10 ML BOTTLE BOTH EYES SCH (21:00)
[2018-02-15] MEDS ORDERED: Insulin DETEMIR 100 UNIT/ML X5UNITS SQ SCH (21:00)
[2018-02-15] MEDS: Latanoprost 2.5 ML BOTTLE BOTH EYES SCH (22:04)
[2018-02-16] MEDS: Cefepime HCl 2,000 MG in Water for inj. (sterile) 20 ML 20 ML IVP SCH ×3 (01:33→20:59)
[2018-02-16 01:46] LABS: Basophils % 0.3 %; Eosinophils # 0.1 K/mcL (0.0-0.6); Eosinophils % 1.1 %; Hematocrit 39.3 % (35.3-44.9); Hemoglobin 12.2 g/dL (11.5-15.4); Immature Granulocytes % 0.5 % (0-4); Lymphocytes # 1.7 K/mcL (0.6-4.6); Lymphocytes % 14.6 %; Mean Corpuscular Hemoglobin 28.8 pg (28.0-33.3); Mean Corpuscular Volume 92.7 fL (83.0-100.0); Mean Platelet Volume 11.3 fL (9.4-12.4); Monocytes # 0.7 K/mcL (0.0-1.3); Monocytes % 6.2 %; Platelet Count 154 K/mcL (140-400); Red Blood Count 4.24 M/mcL (3.82-4.97); Red Cell Distribution Width 13.7 % (11.5-14.5); Segmented Neutrophils % 77.3 %
[2018-02-16 01:56] LABS: BUN/Creatinine Ratio 15 (6-26); Blood Urea Nitrogen 16 mg/dL (8-23); Calcium 9.3 mg/dL (8.6-10.3); Carbon Dioxide 27 mEq/L (23-29); Chloride 107 mEq/L (98-107); Glucose 195 mg/dL (70-105); Osmolality,Calculated 299 (280-300); Potassium 3.8 mEq/L (3.5-5.1); Sodium 141 mEq/L (136-145); eGFR For Non-African Americans 52 (> 60)
[2018-02-16] MEDS: *HR* Heparin 5,000 UNIT/ML VIAL SQ SCH ×2 (05:44→17:05)
[2018-02-16 07:03] LABS: Estimated Average Glucose 186 mg/dl; Hemoglobin A1C 8.1 %
[2018-02-16] MEDS: Insulin LISPRO 300 UNITS/3 ML VIAL SQ SCH ×4 (08:08→21:00)
[2018-02-16] MEDS: Metoprolol XL (24 HR) Succ 25 MG TAB.ER.24H PO SCH (08:09)
[2018-02-16] MEDS: Gabapentin 300 MG CAPSULE PO SCH ×3 (08:09→20:59)
[2018-02-16] MEDS: MetroNIDAZOLE 500 MG/100 ML 500 MG/100 ML BAG IVPB SCH ×2 (08:09→16:13)
[2018-02-16] MEDS: Lisinopril 20 MG TABLET PO SCH (08:09)
[2018-02-16] MEDS: Dorzolamide OPTH 10 ML BOTTLE BOTH EYES SCH (08:30)
--- NOTE | 2018-02-16 08:43 | Internal Med Progress Note ---
<PerlaChristina Marino - Last Filed: 02/16/18 12:31> Hospitalist Progress Note - Encounter Date of Encounter: 02/16/18 - Exam Vitals: Temp Pulse Resp BP Pulse Ox 98.7 F 86 16 137/70 96 02/16/18 11:40 02/16/18 11:40 02/16/18 11:40 02/16/18 11:40 02/16/18 11:40 - Time Spent with Patient Total time spent is greater than 50% in coordination of care (as documented) at patient's floor/unit and/or counseling patient: Internal Medicine: Result - Labs CBC & Chem 7: 02/16/18 01:05 02/16/18 01:05 Labs: Short CBC 02/16/18 Range/Units 01:05 WBC 11.6 H (4.3-11.1) K/mcL Hgb 12.2 (11.5-15.4) g/dL Hct 39.3 (35.3-44.9) % Plt Count 154 (140-400) K/mcL Neutrophils # 9.0 H (1.6-8.9) K/mcL BMP 02/16/18 01:05 Sodium 141 Potassium 3.8 Chloride 107 Carbon Dioxide 27 BUN 16 Creatinine 1.05 Glucose 195 H Calcium 9.3 Consult Discharge Plan - Plan Referrals: Lauro Hogue MD [Primary Care Provider] - - Attending Attestation I examined this patient and my medical decision-making was reviewed with the Resident Physician Dr Pressley. I agree with the documented findings, disposition and treatment plan as described except to the extent set forth below/addl details below Ms Moon has pmhx chf, copd, glc, cad, dm, htn and renal disease. She was admitted for right foot pain after a traumatic injury to foot and found to have diabetic foot infection. Podiatry is following as she has evidence of non viable soft tissue of the right third toe and may require surgical debridement or amputation. Currently treated with IV abx and wound cultures pending. She has COPD and noted some sob and wheezing with CXR with bl opacities suggestive of developing pna. She is awake, alert. no pain in foot. no fevers. + cough now clearing sputum but swallowing it so not sure of color. denies wheezing, orthopnea, pnd. she is uncertain of type of chf she has gen- alert, awake,appears stated age cv- reg rate and rhythm, normal s1,s2, no murmurs appreciated, no jvd or pitting le edema lungs- no wheezing, no crackles, no rhonchi, normal resp effort on O2 nc, diminished bl bases abd- soft, non tender, non distended, + bs Skin- right toe dressing is intact, dry and clean neuro- AAOx3 diabetic right foot infection with involvement of right third toe- cont cefepime + flagyl + vanc, podiatry with likely surg intervention needed in next day or so , mri foot remains pending, cont home gabapentin diabetes mellitus- check a1c, cont 15 units levemir hs and ssi with adjustments as needed bilateral pna / copd exacerbation 2/2 pna- cefepime + vanc, duonebs prn and add scheduled, cont breo and mucinex, prn o2 nc glc- cont home gtts-takes two of same class? cont dorzalamide and confirm other chronic renal disease stage 3A based off gfr this admit- renal dose meds, avoid nephro toxins chf, chronic, type unknown, appears stable- i/os weighs daily and monitor for fluid overload <Elisabeth Pressley - Last Filed: 02/16/18 16:49> Hospitalist Progress Note - Encounter Date of Encounter: 02/16/18 Time of Encounter: 10:03 - Subjective Interval History: Marlene Brand is a 72-year-old female with a history of diabetes, CHF, CAD, hypertension, CKD who presented on 02 15 after 10 days following an injury to the right third toe that had become infected. [facility] and she was started on unknown antibiotic after developing signs of infection, with improvement. On presentation she had a white count of 17.0 and a glucose of 284. She was mildly hypoxic and required 2 L via nasal cannula. Chest x-ray showed hazy opacities bilaterally. Foot x-ray showed soft tissue swelling over the dorsal foot. She states that her foot pain is improved today. However, she admitted to continued shortness of breath. She denied any chest pain, lightheadedness, dizziness, nausea, vomiting, diarrhea, fever, or chills. - Exam Vitals: Temp Pulse Resp BP Pulse Ox 98 F 53 16 148/77 96 10/08/18 07:55 02/16/18 07:55 02/16/18 07:55 02/16/18 07:55 02/16/18 07:55 Exam: Gen: NAD. AAOx3 HEENT: EOMI, Normocephalic, atraumatic Cardiac: RRR, no murmur, normal S1/S2 Pulmonary: CTAB, lightly decreased sounds bilaterally in the bases, appeared to have increased respiratory effort Abdomen: soft, nontender, BS noted, no guarding, no rebound. Extremities: no BLE edema, nontender calf, no cyanosis or clubbing. Right foot with bandage in place and gauze wrapping the wound. No surrounding area of erythema and small amount of blood noted on gauze. Neuro: no focal deficits Psych: Appropriate mood and behavior - Assessment and Plan (1) Diabetic foot infection Current Visit: Yes Status: Acute Assessment and Plan: Trauma to right 2nd toe 12 days ago. Poor healing likely secondary to diabetes. Subjectively improving WBC is 17.0 on presentation, 11.6 today Foot xray 02/14 - market soft tissue swelling over the dorsal aspect of the foot Wound culture positive for staph aureus Continue flagyl (day 2), vanc and cefipime (day 1) Blood cultures pending MRI pending to rule out osteomyelitis Podiatry following, will likely need surgical debridement toe amputation. (2) Pneumonia Current Visit: Yes Status: Acute Assessment and Plan: Hypoxic on presentation with complaint of nonproductive cough CXR 02/14 - bilateral hazy opacities Currently 96% on 2 L NC Increased respiratory effort on exam, however clear to auscultation with slight decreased breath sounds in the bases Continue antibiotics Blood cultures pending Scheduled DuoNeb nebs every 6 hours Albuterol nebs every 4 hours when necessary Continue Mucinex (3) Insulin dependent diabetes mellitus Current Visit: Yes Status: Chronic Assessment and Plan: Poorly controlled A1c 8.1% today Glucose- 170s-180s today Continue low-dose SSI, and increasing glucose levels will consider increasing to moderate dose SSI Continue Levemir 15 units at bedtime Diabetic diet (4) Acute respiratory failure with hypoxia Current Visit: Yes Status: Acute Assessment and Plan: Likely secondary to pneumonia, also consider possible CHF exacerbation Not oxygen dependent at home CHF type and history unknown Currently 86% on 2 L nasal cannula Continue antibiotics Continue scheduled DuoNeb's and albuterol when necessary Continue supplemental oxygen, assessment of oxygen requirements prior to discharge (5) Sepsis Current Visit: Yes Status: Resolved Assessment and Plan: Resolved. Likely secondary to toe infection, however pneumonia is another possible source Leukocytosis and tachycardia on presentation. Lactate 1.5 Vitals stable today WBC 17.0 on presentation, 11.6 today Patient still complaining of nonproductive cough, toe pain improving. Continue antibiotics See above (6) Hypertension Current Visit: Yes Status: Chronic Assessment and Plan: Chronic, stable 110s to 150s systolic currently Continue home lisinopril and metoprolol We will continue to monitor (7) Heart failure of unknown type Current Visit: Yes Status: Chronic Assessment and Plan: Rule out possible heart failure as cause of shortness of breath Clinically does not appear to be acutely exacerbated Unclear history No echo on file If worsening SOB or increased swelling, will consider echocardiogram We will monitor I/O's and weights daily Cautiously hydrate as needed (8) Stage 3a chronic kidney disease Current Visit: Yes Status: Chronic Assessment and Plan: Chronic Unknown baseline creatinine, Cr 1.05 today Avoid nephrotoxic agents Renal dosing for medications We will monitor closely and cautiously hydrate when necessary (9) COPD (chronic obstructive pulmonary disease) Current Visit: Yes Status: Chronic Assessment and Plan: Possible acute exacerbation secondary to pneumonia Oxygen dependent at home Currently 96% on 2 L nasal cannula Continue O2 supplementation as necessary Breo not available, continue Symbicort Continue duo nebs scheduled and albuterol when necessary Steroids unnecessary at this time, we will continue to monitor DVT Prophylaxis: SQ Heparin - Time Spent with Patient Total time spent is greater than 50% in coordination of care (as documented) at patient's floor/unit and/or counseling patient: Internal Medicine: Result - Labs CBC & Chem 7: 02/16/18 01:05 02/16/18 01:05 Labs: Short CBC 02/16/18 Range/Units 01:05 WBC 11.6 H (4.3-11.1) K/mcL Hgb 12.2 (11.5-15.4) g/dL Hct 39.3 (35.3-44.9) % Plt Count 154 (140-400) K/mcL Neutrophils # 9.0 H (1.6-8.9) K/mcL BMP 02/16/18 01:05 Sodium 141 Potassium 3.8 Chloride 107 Carbon Dioxide 27 BUN 16 Creatinine 1.05 Glucose 195 H Calcium 9.3 <Elisabeth Pressley - Last Filed: 02/16/18 16:49> (2) Pneumonia Qualifiers: Pneumonia type: due to unspecified organism Laterality: bilateral Lung location: lower lobe of lung Qualified Code(s): J18.1 - Lobar pneumonia, unspecified organism (5) Sepsis Qualifiers: Sepsis type: sepsis due to unspecified organism Qualified Code(s): A41.9 - Sepsis, unspecified organism (6) Hypertension Qualifiers: Hypertension type: essential hypertension Qualified Code(s): I10 - Essential (primary) hypertension (9) COPD (chronic obstructive pulmonary disease) Qualifiers: COPD type: unspecified COPD Qualified Code(s): J44.9 - Chronic obstructive pulmonary disease, unspecified
[2018-02-16] MEDS ORDERED: (Fluticasone/Vilanterol [Breo Ellipta 100-25 Mcg Inh]) IH SCH (09:00)
[2018-02-16] MEDS ORDERED: *HR* LORazepam 2 MG/ML VIAL IVP ONE ×2 (09:55→18:15)
--- NOTE | 2018-02-16 12:27 | Podiatry Progress Note ---
Date of Encounter: 02/16/18 Time of Encounter: 12:27 - Assessment and Plan (1) Diabetic foot infection Current Visit: Yes Status: Acute Patient with elevated WBC that is improving on IV antibiotics. There is evidence of significant nonviable soft tissue at the right third toe. Patient will likely need surgical debridement or toe amputation. She would like to try to salvage the toe, however, the amount of soft tissue debridement required may not provide viable soft tissue for healing. MRI ordered of the right foot to evaluate for evidence of osteomyelitis which will help in surgical planning. Surgical intervention planned for Friday02/18/18 for I&D with possible toe amputation. Please make patient NPO at midnight tomorrow. Continue IV antibiotics at this time. (2) Insulin dependent diabetes mellitus Current Visit: Yes Status: Chronic Continue blood glucose management per hospitalist. Subjective Principal diagnosis: toe infection Interval history: Patient denies nausea, vomiting, fever, chills. She continues to have right third toe pain. She has been nonweightbearing. Dressing is intact. She states that she would like to salvage the toe if possible but is aware that amputation is likely. MRI ordered but not complete. Objective - Vital Signs Vital Signs: Vital Signs Temp Pulse Resp BP Pulse Ox 02/16/18 11:40 98.7 F 86 16 137/70 96 02/16/18 08:00 96 02/16/18 07:55 98 F 53 16 148/77 96 02/16/18 03:28 98.7 F 95 14 155/91 96 02/15/18 23:58 99.2 F 99 18 152/72 93 02/15/18 18:51 99.4 F 94 16 158/71 93 02/15/18 14:37 98.2 F 95 18 112/69 95 Intake and Output 02/15/18 02/16/18 02/16/18 23:59 07:59 15:59 Intake Total 1120 / 1120 470 / 470 120 / 120 Output Total 200 / 200 Balance 1120 / 1120 270 / 270 120 / 120 Intake: IV Fluids 880 / 880 370 / 370 120 / 120 Maxipime 2,000 MG In Water for 20 / 20 20 / 20 inj. (sterile) 20 ML @ 300 mls/ hr IVP Q8HR [facility] Rx#:[id number] Merrem 1,000 MG In Water for inj. (sterile) 10 ML @ 120 mls/ hr IVPB Q8HR [facility] Rx#:[id number] Flagyl Premix 500 MG/100 ML 500 100 / 100 100 / 100 100 / 100 mg In 100 ml @ 100 mls/hr IVPB Q8HR [facility] Rx#:[id number] Vancocin 1,500 MG In 0.9 % 250 / 250 250 / 250 Sodium Chloride 250 ML @ 166. 667 mls/hr IVPB Q12H [facility] Rx#: [id number] Oral 240 / 240 100 / 100 Output: Urine 200 / 200 Other: Meal Dinner Percent of Meal Consumed 0% # Voids 2 1 # Urine Diapers 1 Weight 144.2 kg Blood Glucose* 167 178 183 Patient Weight 02/16/18 23:59 Weight 144.2 kg - Exam Exam: Vascular: DP and PT 2+ bilateral. Capillary refill less than 3 seconds all digits. Moderate edema bilateral lower extremity. Right forefoot warm to touch. Dermatology: Right third toe with erythema and edema extending just proximal to MPJ. Dry necrosis to dorsal aspect of 3rd digit. No active drainage. No malodor. Musculoskeletal: No gross osseous abnormality. Right third toe pain with palpation. Neuro: Sensation is grossly diminished bilateral. - Lab Result Diagrams: 02/16/18 01:05 02/16/18 01:05 Labs: Abnormal lab results WBC 11.6 K/mcL (4.3-11.1) H 02/16/18 01:05 MCHC 31.0 g/dL (31.6-35.5) L 02/16/18 01:05 Neutrophils # 9.0 K/mcL (1.6-8.9) H 02/16/18 01:05 Est GFR (Non-Af Amer) 52 (> 60) L 02/16/18 01:05 Glucose 195 mg/dL (70-105) H 02/16/18 01:05 POC Glucose 183 mg/dL (70-99) H 02/16/18 11:54 Hemoglobin A1c 8.1 % (-5.6) H 02/16/18 01:05 Vancomycin Trough 25 mcg/mL (5-10) H 02/16/18 10:09 Consult Discharge Plan - Plan Referrals: Lauro Hogue MD [Primary Care Provider] -
[2018-02-16] MEDS ORDERED: Albuterol 2.5 MG/3 ML NEBULIZER IH PRN (13:32)
[2018-02-16] MEDS: Ipratropium/Albuterol Neb 3 ML IH SCH ×2 (15:41→21:38)
[2018-02-16] MEDS ORDERED: Insulin DETEMIR 100 UNIT/ML X5UNITS SQ ONE (21:00)
[2018-02-16] MEDS: Budesonide/Formoterol 160/4.5 1 PUFF INH IH SCH (21:38)
[2018-02-16] MEDS: Latanoprost 2.5 ML BOTTLE BOTH EYES SCH (23:42)
[2018-02-17] MEDS: MetroNIDAZOLE 500 MG/100 ML 500 MG/100 ML BAG IVPB SCH ×3 (01:07→18:51)
[2018-02-17] MEDS: Ipratropium/Albuterol Neb 3 ML IH SCH ×4 (03:38→21:37)
[2018-02-17 05:51] LABS: Basophils % 0.2 %; Eosinophils # 0.2 K/mcL (0.0-0.6); Eosinophils % 2.3 %; Hemoglobin 11.7 g/dL (11.5-15.4); Immature Granulocytes % 0.5 % (0-4); Lymphocytes # 1.6 K/mcL (0.6-4.6); Lymphocytes % 19.6 %; Mean Corpuscular HGB Conc 30.8 g/dL (31.6-35.5); Mean Corpuscular Hemoglobin 28.8 pg (28.0-33.3); Mean Corpuscular Volume 93.6 fL (83.0-100.0); Mean Platelet Volume 10.6 fL (9.4-12.4); Monocytes # 0.7 K/mcL (0.0-1.3); Monocytes % 7.9 %; Neutrophils # 5.8 K/mcL (1.6-8.9); Platelet Count 154 K/mcL (140-400); Red Blood Count 4.06 M/mcL (3.82-4.97); Red Cell Distribution Width 13.9 % (11.5-14.5); Segmented Neutrophils % 69.5 %
[2018-02-17 05:57] LABS: INR 1.1; Prothrombin Time 12.1 Seconds (9.4-12.1)
[2018-02-17 06:14] LABS: BUN/Creatinine Ratio 14 (6-26); Blood Urea Nitrogen 15 mg/dL (8-23); Calcium 9.2 mg/dL (8.6-10.3); Carbon Dioxide 27 mEq/L (23-29); Chloride 107 mEq/L (98-107); Glucose 166 mg/dL (70-105); Osmolality,Calculated 297 (280-300); Potassium 3.9 mEq/L (3.5-5.1); Sodium 141 mEq/L (136-145); eGFR For Non-African Americans 51 (> 60)
[2018-02-17] MEDS: *HR* Heparin 5,000 UNIT/ML VIAL SQ SCH ×2 (06:53→18:51)
--- NOTE | 2018-02-17 08:59 | Internal Med Progress Note ---
<Elisabeth Pressley - Last Filed: 02/17/18 15:28> Hospitalist Progress Note - Encounter Date of Encounter: 02/17/18 Time of Encounter: 09:27 - Subjective Interval History: Marlene Moon is a 72-year-old female with a history of diabetes, CHF, CAD, hypertension, CKD who presented on 02/15 after 10 days following an injury to the right third toe that had become infected. [facility] had been done [facility] the [facility] and was negative for fracture and she was started on unknown antibiotic after developing signs of infection, with improvement. On presentation she had a white count of 17.0 and a glucose of 284. She was mildly hypoxic and required 2 L via nasal cannula. Chest x-ray showed hazy opacities bilaterally. Foot x-ray showed soft tissue swelling over the dorsal foot. MRI negtive for osteomyelitis. Patient was curled up in bed and seemed agitated during our visit this morning. She states that her foot pain is improved today as well as her breathing. She continues to have a poor appetite and was not interested in breakfast. She denied any chest pain, lightheadedness, dizziness, nausea, vomiting, diarrhea, fever, or chills. - Exam Vitals: Temp Pulse Resp BP Pulse Ox 98.2 F 61 18 151/77 96 02/17/18 07:27 02/17/18 07:27 02/17/18 07:27 02/17/18 07:27 02/17/18 07:27 Exam: Gen: NAD. AAOx3 HEENT: EOMI, Normocephalic, atraumatic Cardiac: RRR, no murmur, normal S1/S2 Pulmonary: CTAB, slightly decreased breath sounds bilaterally in the bases, mild wheezing on the right Abdomen: soft, nontender Extremities: no BLE edema, nontender calf, no cyanosis or clubbing. Right foot with bandage in place and gauze wrapping the wound Neuro: no focal deficits Psych: Appeared aggitated and didn't want to answer questions - Assessment and Plan (1) Diabetic foot infection Current Visit: Yes Status: Acute Assessment and Plan: Trauma to right 3nd toe 12 days ago. Poor healing likely secondary to diabetes which then became infected. Subjectively improving WBC is 17.0 on presentation, 8.3 today Foot xray 02/14 - market soft tissue swelling over the dorsal aspect of the foot MRI foot 02/16 - Negative for osteomyelitis. Subcutaneous edema predominately to dorsal foot extending into the 2nd and 4th digits as well as mildly to the 3rd and 1st digits. CXR 02/17 - New moderate size right pleural effusion with RLL atelectasisi/PNA Wound culture positive for staph aureus Continue flagyl (day 3), vanc and cefipime (day 2) Blood cultures pending Podiatry following - planning for I&D tomorrow with possible amputation. Started diuretic today due to CXR with pleural effusion, with dose scheduled prior to sx tomorrow. (2) Pneumonia Current Visit: Yes Status: Acute Assessment and Plan: Hypoxic with non-productive cough on presentation Patient complaining of productive cough with llanos sputum and improvement with breathing on NC CXR 02/14 - bilateral hazy opacities CXR 02/17 - new moderates size right pleural effusions with RLL atelectasis/PNA Currently 96% on 3 L NC (increased from 2L yesterday) Continue antibiotics Blood cultures pending Continue Symbicort Scheduled DuoNeb nebs every 6 hours, Albuterol nebs every 4 hours when necessary Continue Mucinex Started Lasix 40 IV QD, will monitor I/Os and kidney function closely (3) Heart failure of unknown type Current Visit: Yes Status: Chronic Assessment and Plan: History unknown, possible acute exacerbation Patient not on supplemental O2 at home, now requiring 3L per NC Clinically has trace LE bilateral edema, no JVD or orthopena noted CXR 02/17 - new moderate size right pleural effusion with RLL atelectasis/PNA Started Lasix 40 IV QD Will monitor I/Os, weights, and kidney function We will cautiously hydrate if necessary Will likely need evaluation of O2 requirements prior to discharge (4) COPD (chronic obstructive pulmonary disease) Current Visit: Yes Status: Chronic Assessment and Plan: Possible acute exacerbation secondary to pneumonia Non-oxygen dependent at home Currently 96% on 3 L nasal cannula Continue O2 supplementation as necessary Breo not available, continue Symbicort Continue duo nebs scheduled and albuterol when necessary Steroids unnecessary at this time, we will continue to monitor (5) Insulin dependent diabetes mellitus Current Visit: Yes Status: Chronic Assessment and Plan: Poorly controlled A1c 8.1% Glucose- 160s-180s today Continue low-dose SSI for now Continue Levemir 15 units at bedtime Diabetic diet (6) Acute respiratory failure with hypoxia Current Visit: Yes Status: Acute Assessment and Plan: Likely secondary to pneumonia, also consider possible CHF exacerbation Not oxygen dependent at home CHF type and history unknown Currently 96% on 3 L nasal cannula Continue antibiotics Continue scheduled DuoNeb's and albuterol when necessary Continue supplemental oxygen, assessment of oxygen requirements prior to discharge (7) Sepsis Current Visit: Yes Status: Resolved Assessment and Plan: Resolved. Likely secondary to toe infection, however pneumonia is another possible source Leukocytosis and tachycardia on presentation. Lactate 1.5 Vitals stable today WBC 17.0 on presentation, 8.3 today Patient complaining of productive cough with llanos sputum, toe pain improving. Continue antibiotics See above (8) Stage 3a chronic kidney disease Current Visit: Yes Status: Chronic Assessment and Plan: Chronic Unknown baseline creatinine, Cr 1.07 today Started IV Lasix today, will monitor renal function closely Renal dosing for medications (9) Hypertension Current Visit: Yes Status: Chronic Assessment and Plan: Chronic, stable 110s to 150s systolic over last 24 hours Continue home lisinopril and metoprolol We will continue to monitor DVT Prophylaxis: SQ Heparin - Time Spent with Patient Total time spent is greater than 50% in coordination of care (as documented) at patient's floor/unit and/or counseling patient: Internal Medicine: Result - Labs CBC & Chem 7: 02/17/18 05:18 02/17/18 05:18 Labs: Short CBC 02/17/18 Range/Units 05:18 WBC 8.3 (4.3-11.1) K/mcL Hgb 11.7 (11.5-15.4) g/dL Hct 38.0 (35.3-44.9) % Plt Count 154 (140-400) K/mcL Neutrophils # 5.8 (1.6-8.9) K/mcL BMP 02/17/18 05:18 Sodium 141 Potassium 3.9 Chloride 107 Carbon Dioxide 27 BUN 15 Creatinine 1.07 Glucose 166 H Calcium 9.2 - ABG Interpretation ABG results: PT/INR, D-dimer PT 12.1 Seconds (9.4-12.1) 02/17/18 05:18 - Impressions Impressions Foot MRI 02/16/18 09:30 IMPRESSION: Nonspecific subcutaneous edema predominantly to the dorsal foot but also extending into the soft tissues of predominantly the 2nd and 4th digits as well as mildly to the 3rd and 1st digits. No definite focal fluid collections to suggest abscess or evidence for sinus tract on this noncontrast exam. Negative study for osteomyelitis. D/ / 02/16/2018 20:03:59 Alonso Manzano MD / nikita Interpreting Provider: Alonso Manzano MD Consult Discharge Plan - Plan Referrals: Lauro Hogue MD [Primary Care Provider] - <Lane Medellin - Last Filed: 02/17/18 17:58> Hospitalist Progress Note - Encounter Date of Encounter: 02/17/18 - Exam Vitals: Temp Pulse Resp BP Pulse Ox 98.7 F 84 18 135/54 96 02/17/18 16:36 02/17/18 16:36 02/17/18 16:36 02/17/18 16:36 02/17/18 16:36 - Assessment and Plan (1) Acute respiratory failure with hypoxia Current Visit: Yes Status: Acute (2) Diabetic foot infection Current Visit: Yes Status: Acute (3) Pulmonary edema Current Visit: Yes Status: Acute Assessment and Plan: Diurese today. (4) Pneumonia Current Visit: Yes Status: Acute (5) COPD (chronic obstructive pulmonary disease) Current Visit: Yes Status: Chronic (6) Hypertension Current Visit: Yes Status: Chronic (7) Stage 3a chronic kidney disease Current Visit: Yes Status: Chronic - Time Spent with Patient Total time spent is greater than 50% in coordination of care (as documented) at patient's floor/unit and/or counseling patient: Internal Medicine: Result - Labs CBC & Chem 7: 02/17/18 05:18 02/17/18 05:18 Labs: Short CBC 02/17/18 Range/Units 05:18 WBC 8.3 (4.3-11.1) K/mcL Hgb 11.7 (11.5-15.4) g/dL Hct 38.0 (35.3-44.9) % Plt Count 154 (140-400) K/mcL Neutrophils # 5.8 (1.6-8.9) K/mcL BMP 02/17/18 05:18 Sodium 141 Potassium 3.9 Chloride 107 Carbon Dioxide 27 BUN 15 Creatinine 1.07 Glucose 166 H Calcium 9.2 - ABG Interpretation ABG results: PT/INR, D-dimer PT 12.1 Seconds (9.4-12.1) 02/17/18 05:18 - Impressions Impressions Foot MRI 02/16/18 09:30 IMPRESSION: Nonspecific subcutaneous edema predominantly to the dorsal foot but also extending into the soft tissues of predominantly the 2nd and 4th digits as well as mildly to the 3rd and 1st digits. No definite focal fluid collections to suggest abscess or evidence for sinus tract on this noncontrast exam. Negative study for osteomyelitis. D/ / 02/16/2018 20:03:59 Alonso Manzano MD / nikita Interpreting Provider: Alonso Manzano MD Chest X-Ray 02/17/18 11:42 IMPRESSION: New moderate size right pleural effusion with right lower lung atelectasis/pneumonia. D/ / Tony Palomares / Tony Palomares Interpreting Provider: Tony Palomares - Attending Attestation I examined this patient and my medical decision-making was reviewed with the Resident Physician on 02/17/18. I agree with the documented findings, disposition and treatment plan as described except to the extent set forth below. Ms Moon is currently admitted for diabetic foot infection. She remains moderate to high risk due to potential for worsening clinical status. Ms Moon required higher levels of oxygen last night. CXR today showed R effusion and atelectasis. No fever or chills. WBC now normal. No GI issues. Exam alert Comfortable in bed Mucus membranes dry Heart reg. Distant Lungs with decreased breath sounds on R. No wheeze, rhonchi or rales heard at this time. Abd soft and nontender Dressing intact. I/P 1. Resp failure 2. Pulmonary edema - diurese today. 3. Diabetic foot infection Further diagnoses and plan as above. <KelvinanmolElisabeth - Last Filed: 02/17/18 15:28> (2) Pneumonia Qualifiers: Pneumonia type: due to unspecified organism Laterality: bilateral Lung location: lower lobe of lung Qualified Code(s): J18.1 - Lobar pneumonia, unspecified organism (4) COPD (chronic obstructive pulmonary disease) Qualifiers: COPD type: unspecified COPD Qualified Code(s): J44.9 - Chronic obstructive pulmonary disease, unspecified (7) Sepsis Qualifiers: Sepsis type: sepsis due to unspecified organism Qualified Code(s): A41.9 - Sepsis, unspecified organism (9) Hypertension Qualifiers: Hypertension type: essential hypertension Qualified Code(s): I10 - Essential (primary) hypertension <Lane Medellin A - Last Filed: 02/17/18 17:58> (3) Pulmonary edema Qualifiers: Chronicity: acute Qualified Code(s): J81.0 - Acute pulmonary edema (4) Pneumonia Qualifiers: Pneumonia type: due to unspecified organism Laterality: bilateral Lung location: lower lobe of lung Qualified Code(s): J18.1 - Lobar pneumonia, unspecified organism (5) COPD (chronic obstructive pulmonary disease) Qualifiers: COPD type: unspecified COPD Qualified Code(s): J44.9 - Chronic obstructive pulmonary disease, unspecified (6) Hypertension Qualifiers: Hypertension type: essential hypertension Qualified Code(s): I10 - Essential (primary) hypertension
[2018-02-17] MEDS: Insulin LISPRO 300 UNITS/3 ML VIAL SQ SCH ×4 (09:21→22:19)
[2018-02-17] MEDS: Cefepime HCl 2,000 MG in Water for inj. (sterile) 20 ML 20 ML IVP SCH ×2 (09:44→22:20)
[2018-02-17] MEDS: Lisinopril 20 MG TABLET PO SCH (09:45)
[2018-02-17] MEDS: Metoprolol XL (24 HR) Succ 25 MG TAB.ER.24H PO SCH (09:45)
[2018-02-17] MEDS: Gabapentin 300 MG CAPSULE PO SCH ×3 (09:45→22:22)
[2018-02-17] MEDS: Dorzolamide OPTH 10 ML BOTTLE BOTH EYES SCH (09:46)
[2018-02-17] MEDS: Budesonide/Formoterol 160/4.5 1 PUFF INH IH SCH ×2 (09:56→21:37)
--- NOTE | 2018-02-17 13:27 | Podiatry Progress Note ---
Date of Encounter: 02/17/18 Time of Encounter: 13:24 - Assessment and Plan (1) Diabetic foot infection Current Visit: Yes Status: Acute Leukocytosis improving. MRI without evidence of osteomyelitis. Will plan for I& D of the right 3rd toe. Surgical intervention planned for Friday02/18/18 for I&D with possible toe amputation. Please make patient NPO at midnight tonight. Continue IV antibiotics at this time until surgical debridement. (2) Insulin dependent diabetes mellitus Current Visit: Yes Status: Chronic Continue blood glucose management per hospitalist. Subjective Principal diagnosis: toe infection Interval history: Patient denies nausea, vomiting, fever, chills. Toe pain level improved. She has been nonweightbearing. Dressing is intact. MRI without evidence of osteomyelitis of the 3rd digit. Objective - Vital Signs Vital Signs: Vital Signs Temp Pulse Resp BP Pulse Ox 02/17/18 11:25 98.1 F 86 16 124/70 95 02/17/18 09:57 18 91 02/17/18 09:18 77 95 02/17/18 08:45 91 02/17/18 07:27 98.2 F 61 18 151/77 96 02/17/18 05:06 98.3 F 86 16 152/74 96 02/17/18 03:38 19 93 02/16/18 21:38 17 94 02/16/18 19:49 99.3 F 93 14 114/77 95 02/16/18 15:42 16 99 02/16/18 13:43 98.6 F 91 16 134/69 97 Intake and Output 02/16/18 02/17/18 02/17/18 23:59 07:59 15:59 Intake Total 360 / 360 100 / 100 Output Total 200 / 200 0 / 0 Balance 160 / 160 100 / 100 Intake: IV Fluids 120 / 120 100 / 100 Maxipime 2,000 MG In Water for 20 / 20 inj. (sterile) 20 ML @ 300 mls/ hr IVP BID GELACIO Rx#:[id number] Flagyl Premix 500 MG/100 ML 500 100 / 100 100 / 100 mg In 100 ml @ 100 mls/hr IVPB Q8HR GELACIO Rx#:[id number] Oral 240 / 240 0 / 0 Output: Urine 200 / 200 0 / 0 Other: Meal Dinner NPO Percent of Meal Consumed 25% Stool Size Moderate Stool Consistency soft Stool Color Brown # Bowel Movements 1 Weight 147.1 kg Blood Glucose* 174 153 193 Patient Weight 02/17/18 23:59 Weight 147.1 kg - Exam Exam: Vascular: DP and PT 2+ bilateral. Capillary refill less than 3 seconds all digits. Moderate edema bilateral lower extremity. Right forefoot warm to touch. Dermatology: Right third toe erythema improved and now localized to digit. Mixed fibrotic and necrotic tissue at wound base. No active drainage. No malodor. Musculoskeletal: No gross osseous abnormality. Right third toe pain with palpation. Neuro: Sensation is grossly diminished bilateral. - Lab Result Diagrams: 02/17/18 05:18 02/17/18 05:18 Labs: Abnormal lab results MCHC 30.8 g/dL (31.6-35.5) L 02/17/18 05:18 Est GFR (Non-Af Amer) 51 (> 60) L 02/17/18 05:18 Glucose 166 mg/dL (70-105) H 02/17/18 05:18 POC Glucose 174 mg/dL (70-99) H 02/16/18 19:53 Hemoglobin A1c 8.1 % (-5.6) H 02/16/18 01:05 Vancomycin Trough 25 mcg/mL (5-10) H 02/16/18 10:09 Microbiology, Last 48 Hours 02/15/18 12:46 Wound Culture - Final Other-Specify in Comments Staphylococcus aureus Consult Discharge Plan - Plan Referrals: Lauro Hogue MD [Primary Care Provider] -
[2018-02-17] MEDS ORDERED: Furosemide 40 MG/4 ML VIAL IVP ONE (14:08)
--- NOTE | 2018-02-17 19:32 | Anesthesia Evaluation PreOp ---
Date of Encounter: 02/17/18 Time of Encounter: 19:30 - Past History Planned Operation: Right 3rd Toe Amp Cardiac History: CHF, HTN, Hyperlipidemia Pulmonary History: COPD (2L O2 at night), Other (Current Right lung pneumonia - On 2L NC) SENIOR BIOINFORMATICS SPECIALIST History: Other (Anxiety, Depression) Other Medical History: Hepatic (Hepatitis), Renal (Stage 3 CRD), Diabetes Type II, Other (Glaucoma, [place] BMI 59.3) Anesthesia History: No Prior Anesthetic Complications, Past Anesthesia ( colonoscopy) : No Alcohol Use: none Drug use: none Medications and Allergies B Complex with Vitamin C [Vitamin B-Complex with Vit C] 1 each PO DAILY [History] Dorzolamide [Trusopt] 1 drop BOTH EYES DAILY 08/05/15 [History] Guaifenesin [Mucinex] 600 mg PO Q12H PRN 08/05/15 [History] Ipratropium Neb [Atrovent Neb] 0.5 mg IH Q4HR PRN 08/05/15 [History] Ipratropium/Albuterol Neb [Duoneb] 3 ml IH Q4H PRN 08/05/15 [History] Latanoprost [Xalatan] 1 drop BOTH EYES HS 08/05/15 [History] Loratadine [Claritin] 10 mg PO DAILY PRN 08/05/15 [History] Oxygen 2 l NS AD 08/05/15 [History] Polyethylene Glycol 3350 [MiraLAX] 17 gm PO DAILY PRN 08/05/15 [History] Trospium Chloride 20 mg PO BID 08/05/15 [History] Lisinopril [Zestril] 40 mg PO DAILY #30 tablet 08/10/15 [Rx] Brinzolamide 1% [Azopt] 1 drop BOTH EYES HS 05/12/17 [History] Escitalopram Oxalate 5 mg PO DAILY 05/12/17 [History] Fluticasone/Vilanterol [Breo Ellipta 100-25 Mcg INH] 1 puff IH DAILY 05/12/17 [ History] Furosemide [Lasix] 20 mg PO DAILY PRN 05/12/17 [History] Gabapentin [Neurontin] 300 mg PO TID 05/12/17 [History] Glucagon,Human Recombinant [Glucagon Emergency Kit] 1 mg IM ONCE PRN 05/12/17 [ History] Guaifenesin [Tussin] 200 mg PO Q6H PRN 05/12/17 [History] OxyCODONE/APAP 5/325 [Percocet 5/325 MG] 1 tab PO Q6HR PRN 05/12/17 [History] Phenyleph/Pramoxin/Glycr/W.pet [Preparation H Cream] 1 appl RC Q6H PRN 05/12/17 [History] Atorvastatin Calcium [Lipitor] 20 mg PO DAILY 09/16/17 [History] Polyvinyl Alcohol [Artificial Tears] 1 drop OP Q6H PRN 09/16/17 [History] Dextrose [Trueplus Glucose] 15 gm PO AD PRN 02/16/18 [History] Insulin ASPART [NovoLOG] 2 - 10 unit SQ TIDWM 02/16/18 [History] Insulin DETEMIR [Levemir] 60 unit SQ HS 02/16/18 [History] Metoprolol [Lopressor] 25 mg PO DAILY 02/16/18 [History] [place]-3/Dha/Epa/Fish Oil [Fish Oil 1,000 mg Softgel] 1 each PO DAILY 02/16/18 [ History] cephALEXin [Keflex] 500 mg PO TID 02/16/18 [History] 3 Allergy/AdvReac Type Severity Reaction Status Date / Time aspirin [ASA] Allergy Rash Verified 02/14/18 20:51 Penicillins [PCN] Allergy Rash Verified 02/14/18 20:51 adhesive tape AdvReac See Verified 02/14/18 20:51 Comments - Meds/Allergy Pre-op Review Medications Reviewed: Yes Allergies Reviewed: Yes Beta Blockers on Current Med List: Yes If Beta Blockers taken, Date/Time (Last Dose taken): Scheduled in AM Anesthesia Results - Labs 02/17/18 05:18 02/17/18 05:18 SINGLE XRAY VIEW OF THE CHEST 02/17/2018 12:30 pm COMPARISON: 02/14/2018 HISTORY: ORDERING SYSTEM PROVIDED HISTORY: pneumonia, plan for sx tomorrow FINDINGS: Stable cardiomediastinal silhouette. Aortic calcifications. Prominent pulmonary vasculature. New moderate right pleural effusion with right lower lung atelectasis/pneumonia. Left lung is grossly clear. No pneumothorax. XR/XR chest 1V IMPRESSION: New moderate size right pleural effusion with right lower lung atelectasis/pneumonia. - Imaging EKG: report reviewed (SR) Anesthesia Exam Vital Signs/O2 Sat, Most Current Temp Pulse Resp BP Pulse Ox 98.7 F 84 18 135/54 96 02/17/18 16:36 02/17/18 16:36 02/17/18 16:36 02/17/18 16:36 02/17/18 16:36 NPO (# of Hours): > 8 hrs Pain Scale: 0 Pain Scale Used: Numeric (1 - 10) - HEENT Pupil (Motor): Pupils equal, EOMI Mallampati: II Teeth: Normal Oral Opening: Greater than 3 - SENIOR BIOINFORMATICS SPECIALIST LOC: Oriented SENIOR BIOINFORMATICS SPECIALIST Motor: Normal RUE, Normal LUE, Normal RLE, Normal LLE, Normal Face SENIOR BIOINFORMATICS SPECIALIST Sensory: Normal: RUE, LUE, RLE, LLE, Face - Cardiac Rhythm: Regular Murmur: None JVD: No Carotid Bruit: No - Pulmonary Breath Sounds: left Clear (Left clear, Wheeze on Right) Respiratory Effort: Symmetrical Anesthesia Assess/Plan ASA Score: 4 Modified Cruz Scale for Level of Consciousness: Cooperative, oriented, and tranquil Anesthetic Plan: MAC Autologous Blood: Yes Monitoring Plan: Standard Monitors Recovery Plan: Other
[2018-02-17] MEDS ORDERED: Insulin DETEMIR 100 UNIT/ML X5UNITS SQ SCH (21:00)
[2018-02-17] MEDS: Latanoprost 2.5 ML BOTTLE BOTH EYES SCH (22:24)
[2018-02-18] MEDS: MetroNIDAZOLE 500 MG/100 ML 500 MG/100 ML BAG IVPB SCH ×3 (02:30→15:41)
[2018-02-18] MEDS: Ipratropium/Albuterol Neb 3 ML IH SCH ×4 (03:35→21:12)
[2018-02-18] MEDS ORDERED: Bacitracin 50,000 UNIT, Sodium Chloride IRRigation 1,000 ML IR ONE ×2 (06:00→12:36)
[2018-02-18] MEDS ORDERED: Furosemide 40 MG/4 ML VIAL IVP SCH (07:00)
[2018-02-18] MEDS: *HR* Heparin 5,000 UNIT/ML VIAL SQ SCH ×2 (07:26→16:47)
[2018-02-18 07:49] LABS: Basophils % 0.4 %; Eosinophils # 0.2 K/mcL (0.0-0.6); Eosinophils % 1.8 %; Hematocrit 35.6 % (35.3-44.9); Hemoglobin 11.3 g/dL (11.5-15.4); Immature Granulocytes % 0.6 % (0-4); Lymphocytes # 1.1 K/mcL (0.6-4.6); Lymphocytes % 13.4 %; Mean Corpuscular HGB Conc 31.7 g/dL (31.6-35.5); Mean Corpuscular Volume 91.3 fL (83.0-100.0); Mean Platelet Volume 10.5 fL (9.4-12.4); Monocytes # 0.7 K/mcL (0.0-1.3); Monocytes % 8.7 %; Neutrophils # 6.1 K/mcL (1.6-8.9); Platelet Count 160 K/mcL (140-400); Red Cell Distribution Width 13.9 % (11.5-14.5); Segmented Neutrophils % 75.1 %
[2018-02-18 08:04] LABS: BUN/Creatinine Ratio 13 (6-26); Blood Urea Nitrogen 13 mg/dL (8-23); Calcium 9.3 mg/dL (8.6-10.3); Carbon Dioxide 32 mEq/L (23-29); Chloride 106 mEq/L (98-107); Glucose 175 mg/dL (70-105); Osmolality,Calculated 298 (280-300); Potassium 3.9 mEq/L (3.5-5.1); Sodium 142 mEq/L (136-145); eGFR For Non-African Americans 53 (> 60)
[2018-02-18] MEDS ORDERED: Aminoglycoside Consult 1 EACH MC ONE (08:05)
[2018-02-18] MEDS: Cefepime HCl 2,000 MG in Water for inj. (sterile) 20 ML 20 ML IVP SCH ×2 (08:11→21:34)
[2018-02-18] MEDS: Gabapentin 300 MG CAPSULE PO SCH ×3 (08:11→21:34)
[2018-02-18] MEDS: Metoprolol XL (24 HR) Succ 25 MG TAB.ER.24H PO SCH (08:11)
[2018-02-18] MEDS: Lisinopril 20 MG TABLET PO SCH (08:11)
[2018-02-18] MEDS: Insulin LISPRO 300 UNITS/3 ML VIAL SQ SCH ×3 (08:13→21:33)
[2018-02-18] MEDS: Dorzolamide OPTH 10 ML BOTTLE BOTH EYES SCH (08:14)
[2018-02-18] MEDS: Budesonide/Formoterol 160/4.5 1 PUFF INH IH SCH ×2 (10:30→21:12)
[2018-02-18] MEDS ORDERED: Lidocaine 1% 20 ML MDV ONE (11:17)
--- NOTE | 2018-02-18 12:23 | Orthopedic Operative Note ---
Date of procedure: 02/18/18 Pre-op diagnosis: diabetic foot infection Post-op diagnosis: same Procedure: 02/18/18 12:22 1. Debridement and irrigation right foot wound, 2.0cm x 1.8cm x 0.2cm Implants: None Complications: None Anesthesia: MAC, local Local Anesthetics: 0.5% Sensorcaine HCL SubQ (cc), 1% Lidocaine HCL SubQ (cc) Surgeon: Virgil Cesar Was there an credentialing assistant present: No Estimated blood loss (cc): 1 Tourniquet Time (Minutes): 0 Specimen: None Condition: stable Disposition: floor Procedure in Detail: 02/18/18 12:24 INDICATIONS AND CONSENT Marlene Moon is a 72-year-old female type II diabetic who originally presented with an acute infection of the right third toe. Patient sustained an injury to the toe which eventually led to the infection. She had elevated white blood cell count on admission and cellulitis to the level of the right midfoot. Cellulitis improved with IV antibiotics, however, the wound appeared necrotic with nonviable soft tissue. MRI did not show evidence of osteomyelitis of the right third toe. Surgical intervention was warranted to remove any nonviable soft tissue that could be causing infection. We discussed the above procedures in detail. This included a discussion on the indications, contraindications, and possible complications including but not limited to: worsening infection, non-healing wound, pain, swelling, bleeding, blood clots, heart complications, nerve injury, vascular injury, loss of limb, loss of life, and need for further surgery. We also reviewed the expected post operative course, including a discussion on the partial-weightbearing status after this procedure. She related understanding of our discussion regarding this surgery. All questions were answered to her satisfaction, and a proper written informed consent was obtained, signed, and placed in the chart. No guarantees were given, stated or implied, as to the outcome of this procedure. PROCEDURE IN DETAIL The patient was seen in the pre-operative holding area by Anesthesia, where she was consented for MAC with local block. Patient was then brought back to the operating room placed on the bed in a supine position. A sign in was conducted. There was difficulty gaining IV access for MAC, therefore we elected to proceed with local block of the digit for the procedure. The right lower extremity was scrubbed, prepped, draped in usual sterile technique. A timeout was then conducted and all parties in the room agreed. A digital block was performed to the right third toe consisting of 5 mL of 1% lidocaine plain and 5 mL of 0.5% Marcaine plain. Attention was then directed to the right third toe wound where a curette was used to debride any nonviable soft tissue at the wound base and along the wound margin down to bleeding subcutaneous tissue. The tensor tendon was not visualized. The wound did not probe to bone. Post wound debridement measurement was 2.0cm x 1.8cm x 0.2cm. The wound was then irrigated with 3 L of normal saline and then dressed with Xeroform, Kerlix fluffs, Kerlix roll, and BABAR wrap. Capillary refill time of the toes on the right foot was noted to be brisk at this time. A sign-out was performed. The patient tolerated anesthesia and the procedure well, and was transferred to PAC-U with vital signs stable and vascular status intact to the right lower extremity. Needle and sponge counts were correct X 2 at the end of the case. Dr. Virgil Cesar was present, scrubbed, and participated in all vital aspects of the procedure. After a brief stay in PAC-U, the patient will be transferred back to the floor for continued care. Continue IV antibiotics at this time. Patient will likely discharge on PO antibiotics based on previous culture sensitivities. Dressing to remain intact until postop day 2 which will be changed by the surgical team
[2018-02-18] MEDS ORDERED: Dextrose Gel 15 GM/37.5 ML TUBE PO PRN ×2 (12:36)
[2018-02-18] MEDS ORDERED: D5% in Water 1,000 ML IVC PRN (12:36)
[2018-02-18] MEDS ORDERED: Artificial Tears SOLN 15 ML BOTTLE OP PRN (12:36)
[2018-02-18] MEDS ORDERED: Albuterol 2.5 MG/3 ML NEBULIZER IH PRN (12:36)
[2018-02-18] MEDS ORDERED: *HR* Dextrose 50 % in Water (Syg) 50 ML SYRINGE IVP PRN (12:36)
[2018-02-18] MEDS ORDERED: Ondansetron 4 MG/2 ML VIAL IVP PRN (12:36)
[2018-02-18] MEDS ORDERED: Naloxone 0.4 MG/ML INJ IVP PRN (12:36)
--- NOTE | 2018-02-18 18:03 | Internal Med Progress Note ---
Hospitalist Progress Note - Encounter Date of Encounter: 02/18/18 Time of Encounter: 08:15 - Subjective Interval History: Ms Moon is currently admitted for diabetic foot infection and pneumonia. She remains moderate to high risk due to potential for worsening clinical status. Ms Moon is resting comfortably in bed. She is lying flat on her side. No fever or chills. No GI issues. Awaiting surgery. - Exam Vitals: Temp Pulse Resp BP Pulse Ox 98.1 F 85 15 170/63 97 02/18/18 10:46 02/18/18 10:46 02/18/18 15:52 02/18/18 10:46 02/18/18 15:52 Exam: General: Alert and oriented. Comfortable at this time. Lying flat in bed. Skin: Normal color, no rash, no lesions. H: Normocephalic. EENT: EOMI reactive. Mucus membranes moist. No lesion. Cardiovascular: Normal S1 & S2, no rubs, murmurs or gallops. No JVD. Pulse regular. Distended. Lungs: Decreased breath sounds but no wheeze or rhonchi. Abdomen: Soft, non-tender, no rigidity. Normal bowel sounds. Extremities: Dressing intact. Neurological: Normal cognition and motor skills. Pulses: Carotid and radial pulses normal +2. Rest of the physical exam is non contributory - Assessment and Plan (1) Acute respiratory failure with hypoxia Current Visit: Yes Status: Acute Assessment and Plan: - Seems to be improving with diuresis and oxygen. Says she has oxygen at home but doesn't use it continuously. Will qualify before discharge. (2) Congestive heart failure Current Visit: Yes Status: Suspected Assessment and Plan: Slowly improving. Continue diuresis. (3) Diabetic foot infection Current Visit: Yes Status: Acute Assessment and Plan: - Overall has had some improvement with treatment. Plan for OR debridement today. (4) Pulmonary edema Current Visit: Yes Status: Acute Assessment and Plan: Seems to have improved with diuresis. Continue same treatment today. (5) Pneumonia Current Visit: Yes Status: Acute Assessment and Plan: - Repeat CXR yesterday showed more fluid yesterday. Diuresing. Continue IV abx at this time. Plan change to oral soon. (6) COPD (chronic obstructive pulmonary disease) Current Visit: Yes Status: Chronic Assessment and Plan: Continue oxygen and supportive care. (7) Hypertension Current Visit: Yes Status: Chronic Assessment and Plan: Continue home medications. Controlled at this time. (8) Stage 3a chronic kidney disease Current Visit: Yes Status: Chronic Assessment and Plan: Creatinine overall has improved. - Time Spent with Patient Total time spent is greater than 50% in coordination of care (as documented) at patient's floor/unit and/or counseling patient: Internal Medicine: Result - Labs CBC & Chem 7: 02/18/18 07:13 02/18/18 07:13 Labs: Short CBC 02/18/18 Range/Units 07:13 WBC 8.1 (4.3-11.1) K/mcL Hgb 11.3 L (11.5-15.4) g/dL Hct 35.6 (35.3-44.9) % Plt Count 160 (140-400) K/mcL Neutrophils # 6.1 (1.6-8.9) K/mcL BMP 02/18/18 07:13 Sodium 142 Potassium 3.9 Chloride 106 Carbon Dioxide 32 H BUN 13 Creatinine 1.03 Glucose 175 H Calcium 9.3 - ABG Interpretation ABG results: PT/INR, D-dimer PT 12.1 Seconds (9.4-12.1) 02/17/18 05:18 Consult Discharge Plan - Plan Referrals: Lauro Hogue MD [Primary Care Provider] - (2) Congestive heart failure Qualifiers: Qualified Code(s): I50.33 - Acute on chronic diastolic (congestive) heart failure (4) Pulmonary edema Qualifiers: Chronicity: acute Qualified Code(s): J81.0 - Acute pulmonary edema (5) Pneumonia Qualifiers: Pneumonia type: due to unspecified organism Laterality: bilateral Lung location: lower lobe of lung Qualified Code(s): J18.1 - Lobar pneumonia, unspecified organism (6) COPD (chronic obstructive pulmonary disease) Qualifiers: COPD type: unspecified COPD Qualified Code(s): J44.9 - Chronic obstructive pulmonary disease, unspecified (7) Hypertension Qualifiers: Hypertension type: essential hypertension Qualified Code(s): I10 - Essential (primary) hypertension
[2018-02-18] MEDS: Insulin DETEMIR 100 UNIT/ML X5UNITS SQ SCH (21:32)
[2018-02-18] MEDS: Latanoprost 2.5 ML BOTTLE BOTH EYES SCH (21:35)
[2018-02-19] MEDS: MetroNIDAZOLE 500 MG/100 ML 500 MG/100 ML BAG IVPB SCH ×2 (02:08→08:25)
[2018-02-19] MEDS: Ipratropium/Albuterol Neb 3 ML IH SCH ×4 (04:18→21:47)
[2018-02-19 05:20] LABS: Hematocrit 37.1 % (35.3-44.9); Hemoglobin 11.8 g/dL (11.5-15.4); Mean Corpuscular HGB Conc 31.8 g/dL (31.6-35.5); Mean Corpuscular Hemoglobin 28.7 pg (28.0-33.3); Mean Corpuscular Volume 90.3 fL (83.0-100.0); Mean Platelet Volume 10.5 fL (9.4-12.4); Platelet Count 154 K/mcL (140-400); Red Blood Count 4.11 M/mcL (3.82-4.97); Red Cell Distribution Width 13.9 % (11.5-14.5)
[2018-02-19 05:25] LABS: BUN/Creatinine Ratio 14 (6-26); Blood Urea Nitrogen 15 mg/dL (8-23); Calcium 9.5 mg/dL (8.6-10.3); Carbon Dioxide 30 mEq/L (23-29); Chloride 106 mEq/L (98-107); Glucose 173 mg/dL (70-105); Magnesium 1.7 mg/dL (1.6-2.6); Osmolality,Calculated 299 (280-300); Potassium 3.4 mEq/L (3.5-5.1); Sodium 142 mEq/L (136-145); eGFR For Non-African Americans 51 (> 60)
[2018-02-19] MEDS: *HR* Heparin 5,000 UNIT/ML VIAL SQ SCH ×2 (05:58→17:27)
[2018-02-19] MEDS: Insulin LISPRO 300 UNITS/3 ML VIAL SQ SCH ×4 (08:12→21:16)
[2018-02-19] MEDS: Furosemide 40 MG/4 ML VIAL IVP SCH (08:24)
[2018-02-19] MEDS: Gabapentin 300 MG CAPSULE PO SCH ×3 (10:33→21:16)
[2018-02-19] MEDS: Lisinopril 20 MG TABLET PO SCH (10:34)
[2018-02-19] MEDS: Metoprolol XL (24 HR) Succ 25 MG TAB.ER.24H PO SCH (10:34)
[2018-02-19] MEDS: Cefepime HCl 2,000 MG in Water for inj. (sterile) 20 ML 20 ML IVP SCH ×2 (10:36→21:06)
[2018-02-19] MEDS: Dorzolamide OPTH 10 ML BOTTLE BOTH EYES SCH (10:36)
[2018-02-19] MEDS: Budesonide/Formoterol 160/4.5 1 PUFF INH IH SCH ×2 (10:58→21:48)
--- NOTE | 2018-02-19 13:19 | Internal Med Progress Note ---
Hospitalist Progress Note - Encounter Date of Encounter: 02/19/18 Time of Encounter: 09:30 - Subjective Interval History: Ms Moon is currently admitted for diabetic foot infection and pneumonia. She remains moderate to high risk due to potential for worsening clinical status. Ms Moon is comfortable at this time. She had debridement yesterday and feels it is OK today. Tolerating IV abx. Feels "bored." No issues with pain. - Exam Vitals: Temp Pulse Resp BP Pulse Ox 98.0 F 81 18 150/72 96 02/19/18 10:12 02/19/18 10:12 02/19/18 10:58 02/19/18 10:12 02/19/18 10:58 Exam: General: Alert and oriented. Comfortable at this time. Lying flat in bed on her side. Skin: Normal color, no rash, no lesions. H: Normocephalic. EENT: EOMI reactive. Mucus membranes moist. No lesion. Cardiovascular: Normal S1 & S2, no rubs, murmurs or gallops. Not tachycardic. Lungs: Decreased breath sounds. No wheeze, rales or rhonchi. Abdomen: Soft, non-tender, no rigidity. Normal bowel sounds. Extremities: Dressing intact. Neurological: Normal cognition and motor skills. Pulses: Carotid and radial pulses normal +2. Rest of the physical exam is non contributory - Assessment and Plan (1) Acute respiratory failure with hypoxia Current Visit: Yes Status: Acute Assessment and Plan: -Appears to be slowly improving. Currently 96% on 2 liters. Will continue to taper and check 6 minute test prior to discharge. (2) Congestive heart failure Current Visit: Yes Status: Suspected Assessment and Plan: On daily lasix at this time. Will change to PO tomorrow. (3) Diabetic foot infection Current Visit: Yes Status: Acute Assessment and Plan: - Had debridement yesterday. Dressing intact. Culture prior to OR has MSSA. Will deescalate abx and change to Cefipime alone. (4) Pulmonary edema Current Visit: Yes Status: Acute Assessment and Plan: Clinically has improved. Change to PO Lasix tomorrow. (5) Pneumonia Current Visit: Yes Status: Acute Assessment and Plan: - Will deescalate today. Complete 7 days of abx total for pneumonia. (6) COPD (chronic obstructive pulmonary disease) Current Visit: Yes Status: Chronic Assessment and Plan: Weaning oxygen at this time. (7) Hypertension Current Visit: Yes Status: Chronic Assessment and Plan: BP a little higher today. Continue meds as is for now. May need adjustment tomorrow. (8) Stage 3a chronic kidney disease Current Visit: Yes Status: Ruled-out Assessment and Plan: Creatinine overall has improved. No evidence of CKD at this time. (9) Morbid obesity with BMI of 50.0-59.9, adult Current Visit: Yes Status: Chronic Assessment and Plan: Chronic issue - Time Spent with Patient Total time spent is greater than 50% in coordination of care (as documented) at patient's floor/unit and/or counseling patient: Internal Medicine: Result - Labs CBC & Chem 7: 02/19/18 04:36 02/19/18 04:36 Labs: Short CBC 02/19/18 Range/Units 04:36 WBC 8.2 (4.3-11.1) K/mcL Hgb 11.8 (11.5-15.4) g/dL Hct 37.1 (35.3-44.9) % Plt Count 154 (140-400) K/mcL BMP 02/19/18 04:36 Sodium 142 Potassium 3.4 L Chloride 106 Carbon Dioxide 30 H BUN 15 Creatinine 1.06 Glucose 173 H Calcium 9.5 - ABG Interpretation ABG results: PT/INR, D-dimer PT 12.1 Seconds (9.4-12.1) 02/17/18 05:18 Consult Discharge Plan - Plan Referrals: Lauro Hogue MD [Primary Care Provider] - (2) Congestive heart failure Qualifiers: Qualified Code(s): I50.33 - Acute on chronic diastolic (congestive) heart failure (4) Pulmonary edema Qualifiers: Chronicity: acute Qualified Code(s): J81.0 - Acute pulmonary edema (5) Pneumonia Qualifiers: Pneumonia type: due to unspecified organism Laterality: bilateral Lung location: lower lobe of lung Qualified Code(s): J18.1 - Lobar pneumonia, unspecified organism (6) COPD (chronic obstructive pulmonary disease) Qualifiers: COPD type: unspecified COPD Qualified Code(s): J44.9 - Chronic obstructive pulmonary disease, unspecified (7) Hypertension Qualifiers: Hypertension type: essential hypertension Qualified Code(s): I10 - Essential (primary) hypertension
[2018-02-19] MEDS ORDERED: *HR* OxyCODONE/APAP 5/325 TABLET PO PRN (13:30)
[2018-02-19] MEDS: Insulin DETEMIR 100 UNIT/ML X5UNITS SQ SCH (21:17)
[2018-02-19] MEDS: Latanoprost 2.5 ML BOTTLE BOTH EYES SCH (21:18)
[2018-02-20 01:36] LABS: Hemoglobin 12.9 g/dL (11.5-15.4); Mean Corpuscular HGB Conc 31.5 g/dL (31.6-35.5); Mean Corpuscular Volume 92.1 fL (83.0-100.0); Mean Platelet Volume 10.7 fL (9.4-12.4); Platelet Count 196 K/mcL (140-400); Red Blood Count 4.45 M/mcL (3.82-4.97); Red Cell Distribution Width 13.8 % (11.5-14.5)
[2018-02-20 01:57] LABS: Calcium 9.7 mg/dL (8.6-10.3); Magnesium 1.7 mg/dL (1.6-2.6); Potassium 3.5 mEq/L (3.5-5.1)
[2018-02-20] MEDS: Ipratropium/Albuterol Neb 3 ML IH SCH ×2 (04:01→10:46)
[2018-02-20] MEDS: *HR* Heparin 5,000 UNIT/ML VIAL SQ SCH ×2 (05:45→16:58)
--- NOTE | 2018-02-20 07:26 | Podiatry Progress Note ---
Date of Encounter: 02/20/18 Time of Encounter: 07:23 - Assessment and Plan (1) Diabetic foot infection Current Visit: Yes Status: Acute Patient progressing well s/p right 3rd toe wound debridement. Dressing changed today. This dressing can remain intact until 1st follow up appointment. Patient can discharge when medically stable. I recommend discharge with Doxycycline's with seven-day course and follow-up with Dr. Virgil Cesar at [facility] on 02/25/18. (2) Insulin dependent diabetes mellitus Current Visit: Yes Status: Chronic Continue blood glucose management per hospitalist. Subjective Principal diagnosis: toe infection Interval history: Patient progressing well postop day 2 s/p right 3rd toe I&D. Patient denies nausea, vomiting, fever, chills. She has been nonweightbearing. Dressing is intact. Objective - Vital Signs Vital Signs: Vital Signs Temp Pulse Resp BP Pulse Ox 02/20/18 05:59 98.7 F 81 15 106/57 92 02/20/18 04:03 16 93 02/20/18 02:29 98 02/19/18 21:47 18 93 02/19/18 21:02 99.4 F 94 16 115/73 94 02/19/18 20:55 96 02/19/18 16:09 18 96 02/19/18 13:49 98.8 F 97 13 132/79 95 02/19/18 10:58 18 96 02/19/18 10:12 98.0 F 81 17 150/72 96 02/19/18 07:36 95 Intake and Output 02/19/18 02/19/18 02/20/18 15:59 23:59 07:59 Intake Total 230 / 230 160 / 160 Output Total 475 / 475 0 / 0 0 / 0 Balance -245 / -245 160 / 160 0 / 0 Intake: IV Fluids 220 / 220 20 / 20 Maxipime 2,000 MG In Water for 20 / 20 20 / 20 inj. (sterile) 20 ML @ 300 mls/ hr IVP BID GELACIO Rx#:[id number] Flagyl Premix 500 MG/100 ML 500 200 / 200 mg In 100 ml @ 100 mls/hr IVPB Q8HR GELACIO Rx#:[id number] Oral 140 / 140 Output: Urine 475 / 475 0 / 0 0 / 0 Other: Meal Breakfast Dinner Percent of Meal Consumed 0% 85% Stool Size Small Small Stool Consistency loose soft liquid Stool Characteristics Pasty Normal for Patient Stool Color Brown Brown # Voids 1 1 Blood Glucose* 196 312 193 - Exam Exam: Dressing intact. Right 3rd toe ulcer with granular wound base. No active drainage. Erythema improved. Edema improved. Pulses palpable bilaterally. Capillary refill brisk to right 3rd digit. - Lab Result Diagrams: 02/20/18 00:59 02/20/18 00:59 Labs: Abnormal lab results MCHC 31.5 g/dL (31.6-35.5) L 02/20/18 00:59 Carbon Dioxide 32 mEq/L (23-29) H 02/20/18 00:59 Creatinine 1.34 mg/dL (0.60-1.20) H 02/20/18 00:59 Est GFR ( Amer) 47 (> 60) L 02/20/18 00:59 Est GFR (Non-Af Amer) 39 (> 60) L 02/20/18 00:59 Glucose 231 mg/dL (70-105) H 02/20/18 00:59 POC Glucose 312 mg/dL (70-99) H 02/19/18 21:04 Hemoglobin A1c 8.1 % (-5.6) H 02/16/18 01:05 Calculated Osmolality 304 (280-300) H 02/20/18 00:59 Vancomycin Trough 18 mcg/mL (5-10) H 02/17/18 21:56 Consult Discharge Plan - Plan Additional Instructions: Keep dressing intact until post op visit. Can discharge with PO antibiotics based on culture sensitivities x7 days. Follow up with Dr. Virgil Cesar in [facility] on 02/25/18. Referrals: Lauro Hogue MD [Primary Care Provider] -
[2018-02-20] MEDS ORDERED: Ringers Solution, Lactated 1,000 ML IVC SCH (08:00)
[2018-02-20] MEDS: Furosemide 40 MG/4 ML VIAL IVP SCH (08:05)
[2018-02-20] MEDS: Furosemide 40 MG TABLET PO SCH (08:05)
[2018-02-20] MEDS: Insulin LISPRO 300 UNITS/3 ML VIAL SQ SCH ×4 (08:17→21:15)
[2018-02-20] MEDS: Gabapentin 300 MG CAPSULE PO SCH ×3 (08:19→20:59)
[2018-02-20] MEDS: Lisinopril 20 MG TABLET PO SCH (08:19)
[2018-02-20] MEDS: Dorzolamide OPTH 10 ML BOTTLE BOTH EYES SCH (08:20)
[2018-02-20] MEDS: Metoprolol XL (24 HR) Succ 25 MG TAB.ER.24H PO SCH (08:20)
[2018-02-20] MEDS: Cefepime HCl 2,000 MG in Water for inj. (sterile) 20 ML 20 ML IVP SCH ×2 (08:23→20:59)
[2018-02-20] MEDS: Budesonide/Formoterol 160/4.5 1 PUFF INH IH SCH ×2 (10:46→22:26)
[2018-02-20 14:59] LABS: Calcium 9.6 mg/dL (8.6-10.3); Potassium 4.3 mEq/L (3.5-5.1)
--- NOTE | 2018-02-20 17:45 | Internal Med Progress Note ---
Hospitalist Progress Note - Encounter Date of Encounter: 02/20/18 Time of Encounter: 09:00 - Subjective Interval History: Ms Moon is currently admitted for diabetic foot infection and pneumonia. She remains moderate to high risk due to potential for worsening clinical status. Ms Moon is resting. She was seen by podiatry and wound is OK. Creatinine is elevated some today (was diuresing). Small amount of fluid ordered. No fever or chills. No CP or SOB. - Exam Vitals: Temp Pulse Resp BP Pulse Ox 98.4 F 85 13 140/91 95 02/20/18 14:07 02/20/18 14:07 02/20/18 14:07 02/20/18 14:07 02/20/18 14:07 Exam: General: Alert and oriented. Comfortable at this time. Lying flat in bed on her side. No dyspnea noted. Skin: Normal color, no rash, no lesions. H: Normocephalic. EENT: EOMI reactive. Mucus membranes moist. No lesion. Cardiovascular: Normal S1 & S2, no rubs, murmurs or gallops. Not tachycardic at this time. Lungs: Decreased breath sounds. No wheeze, rales or rhonchi. Abdomen: Soft, non-tender, no rigidity. Normal bowel sounds. Extremities: Dressing intact. Neurological: Normal cognition and motor skills. Pulses: Carotid and radial pulses normal +2. Rest of the physical exam is non contributory - Assessment and Plan (1) TONY (acute kidney injury) Current Visit: No Status: Acute Assessment and Plan: Due to diuresis. Lasix held. Small amount of fluid given. (2) Acute respiratory failure with hypoxia Current Visit: Yes Status: Acute Assessment and Plan: -Continues to improve. To return to SNF. Can be re evaluated there. (3) Congestive heart failure Current Visit: Yes Status: Resolved Assessment and Plan: Lasix held today due to increasing creatinine. Small amount of fluids given. Will resume tomorrow. (4) Diabetic foot infection Current Visit: Yes Status: Acute Assessment and Plan: - Wound doing OK. Plan PO abx at discharge. (5) Pulmonary edema Current Visit: Yes Status: Resolved Assessment and Plan: Resolved. (6) Pneumonia Current Visit: Yes Status: Acute Assessment and Plan: - Improved. Will be discharged on PO doxycycline for her foot. (7) COPD (chronic obstructive pulmonary disease) Current Visit: Yes Status: Chronic Assessment and Plan: Weaning oxygen at this time. (8) Hypertension Current Visit: Yes Status: Chronic Assessment and Plan: BP better today. Following. (9) Stage 3a chronic kidney disease Current Visit: Yes Status: Ruled-out Assessment and Plan: Creatinine a little higher today. Fluid given. (10) Morbid obesity with BMI of 50.0-59.9, adult Current Visit: Yes Status: Chronic Assessment and Plan: Chronic issue - Time Spent with Patient Total time spent is greater than 50% in coordination of care (as documented) at patient's floor/unit and/or counseling patient: Internal Medicine: Result - Labs CBC & Chem 7: 02/20/18 00:59 02/20/18 13:51 Labs: Short CBC 02/20/18 Range/Units 00:59 WBC 10.4 (4.3-11.1) K/mcL Hgb 12.9 (11.5-15.4) g/dL Hct 41.0 (35.3-44.9) % Plt Count 196 (140-400) K/mcL BMP 02/20/18 02/20/18 00:59 13:51 Sodium 142 139 Potassium 3.5 4.3 Chloride 102 103 Carbon Dioxide 32 H 30 H BUN 21 19 Creatinine 1.34 H 1.12 Glucose 231 H 272 H Calcium 9.7 9.6 - ABG Interpretation ABG results: PT/INR, D-dimer PT 12.1 Seconds (9.4-12.1) 02/17/18 05:18 Consult Discharge Plan - Plan Additional Instructions: Keep dressing intact until post op visit. Can discharge with PO antibiotics based on culture sensitivities x7 days. Follow up with Dr. Virgil Cesar in [place] [facility] on 02/25/18. Referrals: Lauro Hogue MD [Primary Care Provider] - (3) Congestive heart failure Qualifiers: Qualified Code(s): I50.33 - Acute on chronic diastolic (congestive) heart failure (5) Pulmonary edema Qualifiers: Chronicity: acute Qualified Code(s): J81.0 - Acute pulmonary edema (6) Pneumonia Qualifiers: Pneumonia type: due to unspecified organism Laterality: bilateral Lung location: lower lobe of lung Qualified Code(s): J18.1 - Lobar pneumonia, unspecified organism (7) COPD (chronic obstructive pulmonary disease) Qualifiers: COPD type: unspecified COPD Qualified Code(s): J44.9 - Chronic obstructive pulmonary disease, unspecified (8) Hypertension Qualifiers: Hypertension type: essential hypertension Qualified Code(s): I10 - Essential (primary) hypertension
[2018-02-20] MEDS ORDERED: Insulin DETEMIR 100 UNIT/ML X5UNITS SQ SCH (21:00)
[2018-02-20] MEDS: Latanoprost 2.5 ML BOTTLE BOTH EYES SCH (21:00)
[2018-02-21 05:23] LABS: Albumin/Globulin Ratio 1.3 (1.1-2.2); Bilirubin,Total 0.3 mg/dL (0.3-1.0); Calcium 9.6 mg/dL (8.6-10.3); Globulin 2.4 g/dL (2.4-3.5); Magnesium 1.7 mg/dL (1.6-2.6); Potassium 3.8 mEq/L (3.5-5.1); Total Protein 5.4 g/dL (6.4-8.9)
[2018-02-21] MEDS: *HR* Heparin 5,000 UNIT/ML VIAL SQ SCH (06:11)
--- NOTE | 2018-02-21 07:54 | Discharge Summary ---
- NOTES TO OUTPATIENT PROVIDER Notes to Outpatient Provider: Pt admitted with ulceration of toe on L foot. Underwent debridement. Found to also have pneumonia and CHF. Renal function fluctuated (has in past as well). Have been weaning off oxygen as able. To complete PO abx and follow up with Dr. Cesar in podiatry. Date of Encounter: 02/21/18 Time of Encounter: 10:00 - Discharge Diagnosis (1) Acute respiratory failure with hypoxia Priority: Primary Status: Acute Assessment and Plan: -Wean oxygen as able. (2) Diabetic foot infection Priority: Secondary Status: Resolved Assessment and Plan: - PO abx. (3) Pulmonary edema Priority: Secondary Status: Resolved Qualifiers: Chronicity: acute Qualified Code(s): J81.0 - Acute pulmonary edema (4) Pneumonia Priority: Secondary Status: Resolved Qualifiers: Pneumonia type: due to unspecified organism Laterality: bilateral Lung location: lower lobe of lung Qualified Code(s): J18.1 - Lobar pneumonia, unspecified organism (5) COPD (chronic obstructive pulmonary disease) Priority: Secondary Status: Chronic Qualifiers: COPD type: unspecified COPD Qualified Code(s): J44.9 - Chronic obstructive pulmonary disease, unspecified (6) Hypertension Priority: Secondary Status: Chronic Qualifiers: Hypertension type: essential hypertension Qualified Code(s): I10 - Essential (primary) hypertension (7) Stage 3a chronic kidney disease Priority: Secondary Status: Chronic Assessment and Plan: Renal function fluctuates and needs monitored. (8) Morbid obesity with BMI of 50.0-59.9, adult Priority: Secondary Status: Chronic Assessment and Plan: Chronic issue (9) CHF (congestive heart failure) Priority: Secondary Status: Resolved Assessment and Plan: Acute episode resolved. Qualifiers: Heart failure type: diastolic Heart failure chronicity: acute on chronic Qualified Code(s): I50.33 - Acute on chronic diastolic (congestive) heart failure Hospital course: Ms. Moon is a 72 year old female brought to ED due to pain in her R foot. She was evaluated and found to have diabetic foot infection and subsequently admitted. Ms Moon was admitted to med surg. She was placed on IV abx. She also was felt to have pneumonia and abx were tailored to treat both conditions. She was evaluated by podiatry and MRI did not show osteomyelitis. She had some issues with pulmonary edema and responded to diuresis. She underwent debridement on and tolerated well. She continued on IV abx. On 02/20 she had an increase in her creatinine that responded to fluids. Today she is afebrile. She denies issues with pain or difficulty breathing. No fever or chills. Creatinine slightly elevated but in reviewing prior labs she has fluctuated in the past. She remains on oxygen. She is ready for return to ECF and renal function can be monitored there. She is to complete course of PO abx and follow up with podiatry. Discharge discussed with: patient - Time Spent with Patient Total time spent providing and/or coordinating discharge services: 42min - Discharge Medications Prescriptions: OxyCODONE/APAP 5/325 [Percocet 5/325 MG] 1 tab PO Q6HR PRN 1 Days #5 tablet PRN Reason: Pain Home Medications: B Complex with Vitamin C [Vitamin B-Complex with Vit C] 1 each PO DAILY [History] Dorzolamide [Trusopt] 1 drop BOTH EYES DAILY 08/05/15 [History] Guaifenesin [Mucinex] 600 mg PO Q12H PRN 08/05/15 [History] Ipratropium Neb [Atrovent Neb] 0.5 mg IH Q4HR PRN 08/05/15 [History] Ipratropium/Albuterol Neb [Duoneb] 3 ml IH Q4H PRN 08/05/15 [History] Latanoprost [Xalatan] 1 drop BOTH EYES HS 08/05/15 [History] Loratadine [Claritin] 10 mg PO DAILY PRN 08/05/15 [History] Oxygen 2 l NS AD 08/05/15 [History] Polyethylene Glycol 3350 [MiraLAX] 17 gm PO DAILY PRN 08/05/15 [History] Trospium Chloride 20 mg PO BID 08/05/15 [History] Lisinopril [Zestril] 40 mg PO DAILY #30 tablet 08/10/15 [Rx] Brinzolamide 1% [Azopt] 1 drop BOTH EYES HS 05/12/17 [History] Fluticasone/Vilanterol [Breo Ellipta 100-25 Mcg INH] 1 puff IH DAILY 05/12/17 [ History] Furosemide [Lasix] 20 mg PO DAILY PRN 05/12/17 [History] Gabapentin [Neurontin] 300 mg PO TID 05/12/17 [History] Glucagon,Human Recombinant [Glucagon Emergency Kit] 1 mg IM ONCE PRN 05/12/17 [ History] Guaifenesin [Tussin] 200 mg PO Q6H PRN 05/12/17 [History] Phenyleph/Pramoxin/Glycr/W.pet [Preparation H Cream] 1 appl RC Q6H PRN 05/12/17 [History] Atorvastatin Calcium [Lipitor] 20 mg PO DAILY 09/16/17 [History] Polyvinyl Alcohol [Artificial Tears] 1 drop OP Q6H PRN 09/16/17 [History] Dextrose [Trueplus Glucose] 15 gm PO AD PRN 02/16/18 [History] Insulin ASPART [NovoLOG] 2 - 10 unit SQ TIDWM 02/16/18 [History] Insulin DETEMIR [Levemir] 60 unit SQ HS 02/16/18 [History] [place]-3/Dha/Epa/Fish Oil [Fish Oil 1,000 mg Softgel] 1 each PO DAILY 02/16/18 [ History] Doxycycline 100 mg PO BID capsule 02/21/18 [Rx] Escitalopram [Lexapro] 10 mg PO DAILY tablet 02/21/18 [Rx] Metoprolol XL (24 HR) Succ [Toprol Xl] 25 mg PO DAILY tab.er.24h 02/21/18 [Rx] OxyCODONE/APAP 5/325 [Percocet 5/325 MG] 1 tab PO Q6HR PRN 1 Days #5 tablet [Rx] Allergies/Adverse Reactions: 3 Allergy/AdvReac Type Severity Reaction Status Date / Time aspirin [ASA] Allergy Rash Verified 02/14/18 20:51 Penicillins [PCN] Allergy Rash Verified 02/14/18 20:51 adhesive tape AdvReac See Verified 02/14/18 20:51 Comments Date of admission: 02/15/18 11:55 Primary care physician: Lauro Hogue MD Consults: Tali Discharging clinician: Lane [place]in Anticipated date of discharge: 02/21/18 - Constitutional Vitals: Temp Pulse Resp BP Pulse Ox 98.0 F 73 15 125/72 96 02/21/18 05:28 02/21/18 05:28 02/21/18 05:28 02/21/18 05:28 02/21/18 05:28 General appearance: Present: cooperative, A&O X 3, answers questions appropriately Exam: See below - Head Head exam: Present: atraumatic, normocephalic - Eye Eye exam: Present: conjuntiva pink - ENT ENT exam: Present: mucous membranes moist - Respiratory Respiratory exam: Present: decreased breath sounds. Absent: rales, rhonchi, wheezes - Cardiovascular Cardiovascular exam: Present: RRR. Absent: systolic murmur, tachycardia - GI/Abdominal GI/Abdominal exam: Present: soft. Absent: tenderness - Extremities Exam Extremities exam: Present: warm, radial pulses palpable and symmetrical Additional comments: Dressing intact L foot - Neurological Exam Neurological exam: Present: alert, oriented X3 - Skin Skin exam: Present: dry, warm. Absent: rash - Patient Status Disposition: Transfer SNF Condition: Good Functional capacity at discharge: uses cane/walker Overall status at discharge: patient is progressing back to baseline - Discharge Instructions Follow Up With: Lauro Hogue MD [Primary Care Provider] - Additional Instructions: Keep dressing intact until post op visit. Can discharge with PO antibiotics based on culture sensitivities x7 days. Follow up with Dr. Virgil Cesar in [place] [facility] on 02/25/18. - Diet and Activity Activity: as per physical therapy (And podiatry) Diet: diabetic diet
[2018-02-21] MEDS: Budesonide/Formoterol 160/4.5 1 PUFF INH IH SCH (08:09)
[2018-02-21] MEDS ORDERED: Doxycycline 100 MG CAPSULE PO SCH (09:00)
--- NOTE | 2018-02-21 10:24 | Physician Discharge Referral ---
ExtendedCare Referral Info Provider in Charge after Transfer: PCP Institutional Level of Care: Skilled - Diagnosis (1) Acute respiratory failure with hypoxia Priority: Primary Status: Acute (2) Diabetic foot infection Priority: Secondary Status: Resolved (3) Pulmonary edema Priority: Secondary Status: Resolved (4) Pneumonia Priority: Secondary Status: Resolved (5) COPD (chronic obstructive pulmonary disease) Priority: Secondary Status: Chronic (6) Hypertension Priority: Secondary Status: Chronic (7) Stage 3a chronic kidney disease Priority: Secondary Status: Chronic (8) Morbid obesity with BMI of 50.0-59.9, adult Priority: Secondary Status: Chronic (9) CHF (congestive heart failure) Priority: Secondary Status: Chronic Prognosis: Fair Aware of Diagnosis: Patient Aware of Prognosis: Patient - Transfer Medications Prescriptions: OxyCODONE/APAP 5/325 [Percocet 5/325 MG] 1 tab PO Q6HR PRN 1 Days #5 tablet PRN Reason: Pain Home Medications: B Complex with Vitamin C [Vitamin B-Complex with Vit C] 1 each PO DAILY [History] Dorzolamide [Trusopt] 1 drop BOTH EYES DAILY 08/05/15 [History] Guaifenesin [Mucinex] 600 mg PO Q12H PRN 08/05/15 [History] Ipratropium Neb [Atrovent Neb] 0.5 mg IH Q4HR PRN 08/05/15 [History] Ipratropium/Albuterol Neb [Duoneb] 3 ml IH Q4H PRN 08/05/15 [History] Latanoprost [Xalatan] 1 drop BOTH EYES HS 08/05/15 [History] Loratadine [Claritin] 10 mg PO DAILY PRN 08/05/15 [History] Oxygen 2 l NS AD 08/05/15 [History] Polyethylene Glycol 3350 [MiraLAX] 17 gm PO DAILY PRN 08/05/15 [History] Trospium Chloride 20 mg PO BID 08/05/15 [History] Lisinopril [Zestril] 40 mg PO DAILY #30 tablet 08/10/15 [Rx] Brinzolamide 1% [Azopt] 1 drop BOTH EYES HS 05/12/17 [History] Fluticasone/Vilanterol [Breo Ellipta 100-25 Mcg INH] 1 puff IH DAILY 05/12/17 [ History] Furosemide [Lasix] 20 mg PO DAILY PRN 05/12/17 [History] Gabapentin [Neurontin] 300 mg PO TID 05/12/17 [History] Glucagon,Human Recombinant [Glucagon Emergency Kit] 1 mg IM ONCE PRN 05/12/17 [ History] Guaifenesin [Tussin] 200 mg PO Q6H PRN 05/12/17 [History] Phenyleph/Pramoxin/Glycr/W.pet [Preparation H Cream] 1 appl RC Q6H PRN 05/12/17 [History] Atorvastatin Calcium [Lipitor] 20 mg PO DAILY 09/16/17 [History] Polyvinyl Alcohol [Artificial Tears] 1 drop OP Q6H PRN 09/16/17 [History] Dextrose [Trueplus Glucose] 15 gm PO AD PRN 02/16/18 [History] Insulin ASPART [NovoLOG] 2 - 10 unit SQ TIDWM 02/16/18 [History] Insulin DETEMIR [Levemir] 60 unit SQ HS 02/16/18 [History] [place]-3/Dha/Epa/Fish Oil [Fish Oil 1,000 mg Softgel] 1 each PO DAILY 02/16/18 [ History] Doxycycline 100 mg PO BID capsule 02/21/18 [Rx] Escitalopram [Lexapro] 10 mg PO DAILY tablet 02/21/18 [Rx] Metoprolol XL (24 HR) Succ [Toprol Xl] 25 mg PO DAILY tab.er.24h 02/21/18 [Rx] OxyCODONE/APAP 5/325 [Percocet 5/325 MG] 1 tab PO Q6HR PRN 1 Days #5 tablet [Rx] Allergies/Adverse Reactions: 3 Allergy/AdvReac Type Severity Reaction Status Date / Time aspirin [ASA] Allergy Rash Verified 02/14/18 20:51 Penicillins [PCN] Allergy Rash Verified 02/14/18 20:51 adhesive tape AdvReac See Verified 02/14/18 20:51 Comments - Respiratory Orders Oxygen / L per min (Maintain saturation greater than 88%) Smoking Cessation: Smoking cessation has been advised. For more information, call the [place] Tobacco Quit Line at 2-298-OJVQ-NOW. - Ancillary Orders May use pressure relief devices daily prn, May consult with Dentist, Diesel Engine Ii Pipe Fitter, Geoduck Diver PRN - Advance Directives Code Status: DNR-Arrest/Don't Intubate - Mobility Orders Chair, Ambulate - Rehabiliation Orders Rehab Potential: Fair Rehab Orders: Evaluation for Physical Therapy, Evaluation for Occupational Therapy - Treatments Skin tear care topically daily PRN per policy, May check for fecal impaction rectally daily PRN, Fleet enema rectally every other day PRN cleansing purposes - Diet Orders No Concentrated Sweets, Cardiac CERTIFICATION: I certify that the transfer of the above named patient to an Extended Care Facility is necessary for the continuing treatment of the diagnosis listed. The above information is true and accurate reflection of patient's current condition. Confidential - Redisclosure prohibited without a patient's written consent.
[2018-02-21] MEDS: Insulin LISPRO 300 UNITS/3 ML VIAL SQ SCH ×2 (11:28→11:44)
[2018-02-21] MEDS: Lisinopril 20 MG TABLET PO SCH (11:35)
[2018-02-21] MEDS: Gabapentin 300 MG CAPSULE PO SCH (11:35)
[2018-02-21] MEDS: Furosemide 40 MG TABLET PO SCH (11:35)
[2018-02-21] MEDS: Metoprolol XL (24 HR) Succ 25 MG TAB.ER.24H PO SCH (11:35)
[2018-02-21] MEDS: Dorzolamide OPTH 10 ML BOTTLE BOTH EYES SCH (11:38)
[2018-02-21 11:46] VITALS: BP 143/80
== END 2018-02-21 14:25 | DRG 853 ==
LOC: 3ANU 20:39 → EMEROOARM 20:39 → SUATTDRO 22:40 → 3ANU 23:25 → SUATTDRO 02-15 11:55
PROVIDERS: ADMIT Family Medicine; ATTEND Internal Medicine

== ENCOUNTER 2018-08-10 14:08 | Inpatient (IN) ==
[2018-08-10] MEDS ORDERED: 0.9 % Sodium Chloride 1,000 ML IVC ONE (14:26)
[2018-08-10] MEDS ORDERED: Ipratropium/Albuterol Neb 3 ML IH ONE (14:36)
[2018-08-10 14:38] LABS: Bilirubin,Urine Negative (Negative); Blood,Urine Trace (Negative); Clarity,Urine Clear (Clear); Color,Urine Yellow (Yellow); Glucose,Urine (UA) 500 mg/dL (Normal); Ketones,Urine 15 mg/dL (Negative); Leukocyte Esterase,Urine Trace (Negative); Nitrite,Urine Negative (Negative); Protein,Urine 30 mg/dL (Neg-Trace); Specific Gravity,Urine 1.022 (1.010-1.025); Urobilinogen,Urine Normal (Normal)
[2018-08-10] MEDS ORDERED: Ipratropium/Albuterol Neb 3 ML ONE (14:39)
--- NOTE | 2018-08-10 14:39 | Emergency Department Note ---
Disposition Clinical Impression: HCAP (healthcare-associated pneumonia) Disposition: Admitted As Inpatient Condition: Fair Referrals: NONE,PCP [Non-Partnered Physician] - Forms: Work/School Release Time of Disposition: 17:30 General Adult HPI - General Chief complaint: ED Abdominal Pain Stated complaint: abdominal pain Time Seen by Provider: 08/10/18 14:17 Source: patient, EMS Mode of arrival: EMS Limitations: no limitations Nursing Notes Reviewed: Yes Vital Signs Reviewed: Yes - History of Present Illness HPI Narrative: Patient presents to the emergency department via EMS for evaluation of abdominal pain. Patient reports that she has also had increasing chest congestion and shortness of breath over the last several days. She complains of generalized abdominal pain, but denies any associated symptoms including nausea, vomiting, changes in bowel habits, or any urinary symptoms. She is significantly dyspneic on exam, and does become short of breath after she became several sentences. She denies any other specific complaints or concerns at this time. Pain Scale: 5 - Related Data Home Medications Medication Instructions Recorded Confirmed B-Complex with Vitamin C [Vitamin 1 each PO DAILY 08/05/15 08/10/18 B-Complex with Vit C] Guaifenesin [Mucinex] 600 mg PO Q12H PRN 08/05/15 08/10/18 Ipratropium/Albuterol Neb [Duoneb] 3 ml IH Q4H PRN 08/05/15 08/10/18 Latanoprost [Xalatan] 1 drop BOTH EYES HS 08/05/15 08/10/18 Loratadine [Claritin] 10 mg PO DAILY PRN 08/05/15 08/10/18 Polyethylene Glycol 3350 [MiraLAX] 17 gm PO DAILY PRN 08/05/15 08/10/18 Trospium Chloride 20 mg PO BID 08/05/15 08/10/18 Brinzolamide 1% [Azopt] 1 drop BOTH EYES HS 05/12/17 08/10/18 Fluticasone/Vilanterol [Breo 1 puff IH DAILY 05/12/17 08/10/18 Ellipta 100-25 Mcg INH] Furosemide [Lasix] 20 mg PO DAILY PRN 05/12/17 08/10/18 Gabapentin [Neurontin] 300 mg PO TID 05/12/17 08/10/18 Glucagon,Human Recombinant 1 mg IM ONCE PRN 05/12/17 08/10/18 [Glucagon Emergency Kit] Guaifenesin [Tussin] 200 mg PO Q6H PRN 05/12/17 08/10/18 Phenyleph/Pramoxin/Glycr/W.pet 1 appl RC Q6H PRN 05/12/17 08/10/18 [Preparation H Cream] Atorvastatin Calcium [Lipitor] 20 mg PO HS 09/16/17 08/10/18 Polyvinyl Alcohol [Artificial 1 drop OP Q6H PRN 09/16/17 08/10/18 Tears] Dextrose [Trueplus Glucose] 15 gm PO AD PRN 02/16/18 08/10/18 Insulin ASPART [NovoLOG] 2 - 10 unit SQ TIDWM 02/16/18 08/10/18 Insulin DETEMIR [Levemir] 60 unit SQ HS 02/16/18 08/10/18 [place]-3/Dha/Epa/Fish Oil [Fish Oil 1 each PO DAILY 02/16/18 08/10/18 1,000 mg Softgel] Previous Rx's Medication Instructions Recorded Lisinopril [Zestril] 40 mg PO DAILY #30 tablet 08/10/15 Metoprolol XL (24 HR) Succ [Toprol 25 mg PO DAILY tab.er.24h 02/21/18 Xl] OxyCODONE/APAP 5/325 [Percocet 1 tab PO Q6HR PRN 1 Days #5 tablet 02/21/18 5/325 MG] Allergies Allergy/AdvReac Type Severity Reaction Status Date / Time aspirin [ASA] Allergy Rash Verified 02/14/18 20:51 Penicillins [PCN] Allergy Rash Verified 02/14/18 20:51 adhesive tape AdvReac See Verified 02/14/18 20:51 Comments All systems ED: reviewed and negative except as stated. Constitutional: Denies: fever, chills, weakness, weight change Eyes: Denies: eye pain, eye discharge, vision change ENT ED: Denies: ear pain, throat pain, dental pain, hearing loss, epistaxis, congestion, dysphagia Cardiovascular: Reports: dyspnea on exertion. Denies: chest pain, palpitations, edema, syncope Respiratory: Reports: cough, dyspnea, sputum production. 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 At this time, patient will have her breathing treatments ordered. Initial workup will include EKG, chest x-ray, basic laboratory studies, troponin, and lactic acid. Disposition is pending. - Reevaluation(s) Reevaluation #1: Laboratory and imaging studies reviewed. At this time, patient is appropriate for admission to the hospital for treatment of healthcare associated pneumonia. Case was discussed with the hospitalist, Dr. Roque, who agreed to accept the patient for admission. Vital Signs Temperature 100.4 F H 08/10/18 14:12 Pulse Rate 107 08/10/18 14:12 Respiratory Rate 22 08/10/18 14:12 Blood Pressure 162/75 08/10/18 14:12 O2 Sat by Pulse Oximetry 86 08/10/18 14:12 Temperature 100.4 F H 08/10/18 14:12 Pulse Rate 115 08/10/18 16:29 Respiratory Rate 20 08/10/18 16:29 Blood Pressure 101/56 08/10/18 16:29 O2 Sat by Pulse Oximetry 90 08/10/18 16:29 Oxygen Delivery Oxygen Delivery Nasal Cannula Medical Decision Making - Lab Data Result diagrams: 08/10/18 14:55 08/10/18 14:55 Lab Results 08/10/18 08/10/18 08/10/18 Range/Units 14:25 14:55 14:55 WBC 9.7 (4.3-11.1) K/mcL RBC 5.12 H (3.82-4.97) M/mcL Hgb 15.0 (11.5-15.4) g/dL Hct 47.9 H (35.3-44.9) % MCV 93.6 (83.0-100.0) fL MCH 29.3 (28.0-33.3) pg MCHC 31.3 L (31.6-35.5) g/dL RDW 13.5 (11.5-14.5) % Plt Count 114 L (140-400) K/mcL MPV 11.0 (9.4-12.4) fL Immature Gran % 0.7 (0-4) % Seg Neutrophils % 87.9 % Lymphocytes % 5.1 % Monocytes % 6.0 % Eosinophils % 0.0 % Basophils % 0.3 % Neutrophils # 8.5 (1.6-8.9) K/mcL Lymphocytes # 0.5 L (0.6-4.6) K/mcL Monocytes # 0.6 (0.0-1.3) K/mcL Eosinophils # 0.0 (0.0-0.6) K/mcL Basophils # 0.0 (0.0-0.2) K/mcL PT 11.6 (9.4-12.1) Seconds INR 1.0 APTT 29.0 (26.0-36.0) Seconds VBG pH (7.32-7.42) pH Units VBG pCO2 (41-51) mmHg VBG pO2 (25-50) mmHg VBG HCO3 (21-27) mEq/L Sodium (136-145) mEq/L Potassium (3.5-5.1) mEq/L Chloride (98-107) mEq/L Carbon Dioxide (23-29) mEq/L BUN (8-23) mg/dL Creatinine (0.60-1.20) mg/dL Est GFR ( Amer) (> 60) Est GFR (Non-Af Amer) (> 60) BUN/Creatinine Ratio (6-26) Glucose (70-105) mg/dL Calculated Osmolality (280-300) Lactic Acid (0.5-2.2) mmol/L Calcium (8.6-10.3) mg/dL Phosphorus (2.7-4.5) mg/dL Magnesium (1.6-2.6) mg/dL Total Bilirubin (0.3-1.0) mg/dL Direct Bilirubin (0.0-0.2) mg/dL Indirect Bilirubin (0.0-1.2) mg/dL AST (13-39) Units/L ALT (7-52) Units/L Alkaline Phosphatase (34-104) Units/L Troponin I (< 0.04) ng/mL B-Natriuretic Peptide (Less than 100) pg/mL Serum Total Protein (6.4-8.9) g/dL Albumin (3.5-5.7) g/dL Globulin (2.4-3.5) g/dL Albumin/Globulin Ratio (1.1-2.2) Urine Color Yellow (Yellow) Urine Clarity Clear (Clear) Urine pH 5.0 (5.0-8.0) pH Units Ur Specific [place] 1.022 (1.010-1.025) Urine Protein 30 H (Neg-Trace) mg/dL Urine Glucose (UA) 500 H (Normal) mg/dL Urine Ketones 15 H (Negative) mg/dL Urine Blood Trace H (Negative) Urine Nitrite Negative (Negative) Urine Bilirubin Negative (Negative) Urine Urobilinogen Normal (Normal) mg/dL Ur Leukocyte Esterase Trace H (Negative) Urine Microscopic RBC 0-3 (0-3) per hpf Urine Microscopic WBC 5-15 H (0-3) per hpf Ur Squamous Epith Cells Many H (None-Few) per lpf Urine Bacteria Moderate H (None-Few) per hpf Hyaline Casts None Seen (None-Few) per lpf Ur Culture Indicated? NO. A (NO) 08/10/18 08/10/18 08/10/18 Range/Units 14:55 14:55 14:55 WBC (4.3-11.1) K/mcL RBC (3.82-4.97) M/mcL Hgb (11.5-15.4) g/dL Hct (35.3-44.9) % MCV (83.0-100.0) fL MCH (28.0-33.3) pg MCHC (31.6-35.5) g/dL RDW (11.5-14.5) % Plt Count (140-400) K/mcL MPV (9.4-12.4) fL Immature Gran % (0-4) % Seg Neutrophils % % Lymphocytes % % Monocytes % % Eosinophils % % Basophils % % Neutrophils # (1.6-8.9) K/mcL Lymphocytes # (0.6-4.6) K/mcL Monocytes # (0.0-1.3) K/mcL Eosinophils # (0.0-0.6) K/mcL Basophils # (0.0-0.2) K/mcL PT (9.4-12.1) Seconds INR APTT (26.0-36.0) Seconds VBG pH (7.32-7.42) pH Units VBG pCO2 (41-51) mmHg VBG pO2 (25-50) mmHg VBG HCO3 (21-27) mEq/L Sodium 138 (136-145) mEq/L Potassium 4.4 (3.5-5.1) mEq/L Chloride 102 (98-107) mEq/L Carbon Dioxide 30 H (23-29) mEq/L BUN 17 (8-23) mg/dL Creatinine 1.22 H (0.60-1.20) mg/dL Est GFR ( Amer) 53 L (> 60) Est GFR (Non-Af Amer) 43 L (> 60) BUN/Creatinine Ratio 14 (6-26) Glucose 312 H (70-105) mg/dL Calculated Osmolality 299 (280-300) Lactic Acid 1.1 (0.5-2.2) mmol/L Calcium 9.5 (8.6-10.3) mg/dL Phosphorus 2.0 L (2.7-4.5) mg/dL Magnesium 1.4 L (1.6-2.6) mg/dL Total Bilirubin 0.6 (0.3-1.0) mg/dL Direct Bilirubin 0.2 (0.0-0.2) mg/dL Indirect Bilirubin 0.4 (0.0-1.2) mg/dL AST 33 (13-39) Units/L ALT 27 (7-52) Units/L Alkaline Phosphatase 82 (34-104) Units/L Troponin I 0.03 (< 0.04) ng/mL B-Natriuretic Peptide 82 (Less than 100) pg/mL Serum Total Protein 6.1 L (6.4-8.9) g/dL Albumin 3.4 L (3.5-5.7) g/dL Globulin 2.7 (2.4-3.5) g/dL Albumin/Globulin Ratio 1.3 (1.1-2.2) Urine Color (Yellow) Urine Clarity (Clear) Urine pH (5.0-8.0) pH Units Ur Specific [place] (1.010-1.025) Urine Protein (Neg-Trace) mg/dL Urine Glucose (UA) (Normal) mg/dL Urine Ketones (Negative) mg/dL Urine Blood (Negative) Urine Nitrite (Negative) Urine Bilirubin (Negative) Urine Urobilinogen (Normal) mg/dL Ur Leukocyte Esterase (Negative) Urine Microscopic RBC (0-3) per hpf Urine Microscopic WBC (0-3) per hpf Ur Squamous Epith Cells (None-Few) per lpf Urine Bacteria (None-Few) per hpf Hyaline Casts (None-Few) per lpf Ur Culture Indicated? (NO) 08/10/18 Range/Units 15:20 WBC (4.3-11.1) K/mcL RBC (3.82-4.97) M/mcL Hgb (11.5-15.4) g/dL Hct (35.3-44.9) % MCV (83.0-100.0) fL MCH (28.0-33.3) pg MCHC (31.6-35.5) g/dL RDW (11.5-14.5) % Plt Count (140-400) K/mcL MPV (9.4-12.4) fL Immature Gran % (0-4) % Seg Neutrophils % % Lymphocytes % % Monocytes % % Eosinophils % % Basophils % % Neutrophils # (1.6-8.9) K/mcL Lymphocytes # (0.6-4.6) K/mcL Monocytes # (0.0-1.3) K/mcL Eosinophils # (0.0-0.6) K/mcL Basophils # (0.0-0.2) K/mcL PT (9.4-12.1) Seconds INR APTT (26.0-36.0) Seconds VBG pH 7.30 L (7.32-7.42) pH Units VBG pCO2 57 H (41-51) mmHg VBG pO2 37 (25-50) mmHg VBG HCO3 28 H (21-27) mEq/L Sodium (136-145) mEq/L Potassium (3.5-5.1) mEq/L Chloride (98-107) mEq/L Carbon Dioxide (23-29) mEq/L BUN (8-23) mg/dL Creatinine (0.60-1.20) mg/dL Est GFR ( Amer) (> 60) Est GFR (Non-Af Amer) (> 60) BUN/Creatinine Ratio (6-26) Glucose (70-105) mg/dL Calculated Osmolality (280-300) Lactic Acid (0.5-2.2) mmol/L Calcium (8.6-10.3) mg/dL Phosphorus (2.7-4.5) mg/dL Magnesium (1.6-2.6) mg/dL Total Bilirubin (0.3-1.0) mg/dL Direct Bilirubin (0.0-0.2) mg/dL Indirect Bilirubin (0.0-1.2) mg/dL AST (13-39) Units/L ALT (7-52) Units/L Alkaline Phosphatase (34-104) Units/L Troponin I (< 0.04) ng/mL B-Natriuretic Peptide (Less than 100) pg/mL Serum Total Protein (6.4-8.9) g/dL Albumin (3.5-5.7) g/dL Globulin (2.4-3.5) g/dL Albumin/Globulin Ratio (1.1-2.2) Urine Color (Yellow) Urine Clarity (Clear) Urine pH (5.0-8.0) pH Units Ur Specific [place] (1.010-1.025) Urine Protein (Neg-Trace) mg/dL Urine Glucose (UA) (Normal) mg/dL Urine Ketones (Negative) mg/dL Urine Blood (Negative) Urine Nitrite (Negative) Urine Bilirubin (Negative) Urine Urobilinogen (Normal) mg/dL Ur Leukocyte Esterase (Negative) Urine Microscopic RBC (0-3) per hpf Urine Microscopic WBC (0-3) per hpf Ur Squamous Epith Cells (None-Few) per lpf Urine Bacteria (None-Few) per hpf Hyaline Casts (None-Few) per lpf Ur Culture Indicated? (NO) - EKG Data EKG #1 EKG results narrative: Sinus tachycardia with rate of [address] or T-wave abnormalities. This significant changes when compared to prior study dated 05/12/2017.
[2018-08-10 14:41] LABS: Bacteria,Urine Moderate per hpf (None-Few); Hyaline Casts,Urine None Seen per lpf (None-Few); RBC,Urine 0-3 per hpf (0-3); Squamous Epithelial Cell,Urine Many per lpf (None-Few)
--- NOTE | 2018-08-10 14:43 | Emergency Department Note ---
Disposition Clinical Impression: HCAP (healthcare-associated pneumonia) Disposition: Admitted As Inpatient Condition: Fair Referrals: NONE,PCP [Non-Partnered Physician] - Forms: Work/School Release General Adult HPI - General Chief complaint: ED Abdominal Pain Stated complaint: abdominal pain Time Seen by Provider: 08/10/18 14:17 Source: patient, EMS Mode of arrival: EMS Limitations: no limitations - History of Present Illness Pain Scale: 5 - Related Data Home Medications Medication Instructions Recorded Confirmed B-Complex with Vitamin C [Vitamin 1 each PO DAILY 08/05/15 08/10/18 B-Complex with Vit C] Guaifenesin [Mucinex] 600 mg PO Q12H PRN 08/05/15 08/10/18 Ipratropium/Albuterol Neb [Duoneb] 3 ml IH Q4H PRN 08/05/15 08/10/18 Latanoprost [Xalatan] 1 drop BOTH EYES HS 08/05/15 08/10/18 Loratadine [Claritin] 10 mg PO DAILY PRN 08/05/15 08/10/18 Polyethylene Glycol 3350 [MiraLAX] 17 gm PO DAILY PRN 08/05/15 08/10/18 Trospium Chloride 20 mg PO BID 08/05/15 08/10/18 Brinzolamide 1% [Azopt] 1 drop BOTH EYES HS 05/12/17 08/10/18 Fluticasone/Vilanterol [Breo 1 puff IH DAILY 05/12/17 08/10/18 Ellipta 100-25 Mcg INH] Furosemide [Lasix] 20 mg PO DAILY PRN 05/12/17 08/10/18 Gabapentin [Neurontin] 300 mg PO TID 05/12/17 08/10/18 Glucagon,Human Recombinant 1 mg IM ONCE PRN 05/12/17 08/10/18 [Glucagon Emergency Kit] Guaifenesin [Tussin] 200 mg PO Q6H PRN 05/12/17 08/10/18 Phenyleph/Pramoxin/Glycr/W.pet 1 appl RC Q6H PRN 05/12/17 08/10/18 [Preparation H Cream] Atorvastatin Calcium [Lipitor] 20 mg PO HS 09/16/17 08/10/18 Polyvinyl Alcohol [Artificial 1 drop OP Q6H PRN 09/16/17 08/10/18 Tears] Dextrose [Trueplus Glucose] 15 gm PO AD PRN 02/16/18 08/10/18 Insulin ASPART [NovoLOG] 2 - 10 unit SQ TIDWM 02/16/18 08/10/18 Insulin DETEMIR [Levemir] 60 unit SQ HS 02/16/18 08/10/18 [place]-3/Dha/Epa/Fish Oil [Fish Oil 1 each PO DAILY 02/16/18 08/10/18 1,000 mg Softgel] Previous Rx's Medication Instructions Recorded Lisinopril [Zestril] 40 mg PO DAILY #30 tablet 08/10/15 Metoprolol XL (24 HR) Succ [Toprol 25 mg PO DAILY tab.er.24h 02/21/18 Xl] OxyCODONE/APAP 5/325 [Percocet 1 tab PO Q6HR PRN 1 Days #5 tablet 02/21/18 5/325 MG] Allergies Allergy/AdvReac Type Severity Reaction Status Date / Time aspirin [ASA] Allergy Rash Verified 02/14/18 20:51 Penicillins [PCN] Allergy Rash Verified 02/14/18 20:51 adhesive tape AdvReac See Verified 02/14/18 20:51 Comments Past Medical History - Past Medical History Medical history: Reports: CHF, COPD, coronary artery disease, diabetes, glaucoma, hepatitis, hyperlipidemia, hypertension, osteoporosis, renal disease Surgical history: Reports: cataract, herniorrhaphy Psychiatric history: Reports: anxiety, depression DIGITAL 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 - Social History Smoking Status: Former smoker Smokeless Tobacco Status: No Alcohol use: Reports: none Drug use: Reports: none Physical Exam - General Limitations: no limitations General appearance: alert, in no apparent distress Course Vital Signs Temperature 100.4 F H 08/10/18 14:12 Pulse Rate 107 08/10/18 14:12 Respiratory Rate 22 08/10/18 14:12 Blood Pressure 162/75 08/10/18 14:12 O2 Sat by Pulse Oximetry 86 08/10/18 14:12 Temperature 100.4 F H 08/10/18 14:12 Pulse Rate 115 08/10/18 16:29 Respiratory Rate 20 08/10/18 16:29 Blood Pressure 101/56 08/10/18 16:29 O2 Sat by Pulse Oximetry 90 08/10/18 16:29 Oxygen Delivery Oxygen Delivery Nasal Cannula Medical Decision Making - Lab Data Result diagrams: 08/10/18 14:55 08/10/18 14:55 Lab Results 08/10/18 08/10/18 08/10/18 Range/Units 14:25 14:55 14:55 WBC 9.7 (4.3-11.1) K/mcL RBC 5.12 H (3.82-4.97) M/mcL Hgb 15.0 (11.5-15.4) g/dL Hct 47.9 H (35.3-44.9) % MCV 93.6 (83.0-100.0) fL MCH 29.3 (28.0-33.3) pg MCHC 31.3 L (31.6-35.5) g/dL RDW 13.5 (11.5-14.5) % Plt Count 114 L (140-400) K/mcL MPV 11.0 (9.4-12.4) fL Immature Gran % 0.7 (0-4) % Seg Neutrophils % 87.9 % Lymphocytes % 5.1 % Monocytes % 6.0 % Eosinophils % 0.0 % Basophils % 0.3 % Neutrophils # 8.5 (1.6-8.9) K/mcL Lymphocytes # 0.5 L (0.6-4.6) K/mcL Monocytes # 0.6 (0.0-1.3) K/mcL Eosinophils # 0.0 (0.0-0.6) K/mcL Basophils # 0.0 (0.0-0.2) K/mcL PT 11.6 (9.4-12.1) Seconds INR 1.0 APTT 29.0 (26.0-36.0) Seconds VBG pH (7.32-7.42) pH Units VBG pCO2 (41-51) mmHg VBG pO2 (25-50) mmHg VBG HCO3 (21-27) mEq/L Sodium (136-145) mEq/L Potassium (3.5-5.1) mEq/L Chloride (98-107) mEq/L Carbon Dioxide (23-29) mEq/L BUN (8-23) mg/dL Creatinine (0.60-1.20) mg/dL Est GFR ( Amer) (> 60) Est GFR (Non-Af Amer) (> 60) BUN/Creatinine Ratio (6-26) Glucose (70-105) mg/dL Calculated Osmolality (280-300) Lactic Acid (0.5-2.2) mmol/L Calcium (8.6-10.3) mg/dL Phosphorus (2.7-4.5) mg/dL Magnesium (1.6-2.6) mg/dL Total Bilirubin (0.3-1.0) mg/dL Direct Bilirubin (0.0-0.2) mg/dL Indirect Bilirubin (0.0-1.2) mg/dL AST (13-39) Units/L ALT (7-52) Units/L Alkaline Phosphatase (34-104) Units/L Troponin I (< 0.04) ng/mL B-Natriuretic Peptide (Less than 100) pg/mL Serum Total Protein (6.4-8.9) g/dL Albumin (3.5-5.7) g/dL Globulin (2.4-3.5) g/dL Albumin/Globulin Ratio (1.1-2.2) Urine Color Yellow (Yellow) Urine Clarity Clear (Clear) Urine pH 5.0 (5.0-8.0) pH Units Ur Specific [place] 1.022 (1.010-1.025) Urine Protein 30 H (Neg-Trace) mg/dL Urine Glucose (UA) 500 H (Normal) mg/dL Urine Ketones 15 H (Negative) mg/dL Urine Blood Trace H (Negative) Urine Nitrite Negative (Negative) Urine Bilirubin Negative (Negative) Urine Urobilinogen Normal (Normal) mg/dL Ur Leukocyte Esterase Trace H (Negative) Urine Microscopic RBC 0-3 (0-3) per hpf Urine Microscopic WBC 5-15 H (0-3) per hpf Ur Squamous Epith Cells Many H (None-Few) per lpf Urine Bacteria Moderate H (None-Few) per hpf Hyaline Casts None Seen (None-Few) per lpf Ur Culture Indicated? NO. A (NO) 08/10/18 08/10/18 08/10/18 Range/Units 14:55 14:55 14:55 WBC (4.3-11.1) K/mcL RBC (3.82-4.97) M/mcL Hgb (11.5-15.4) g/dL Hct (35.3-44.9) % MCV (83.0-100.0) fL MCH (28.0-33.3) pg MCHC (31.6-35.5) g/dL RDW (11.5-14.5) % Plt Count (140-400) K/mcL MPV (9.4-12.4) fL Immature Gran % (0-4) % Seg Neutrophils % % Lymphocytes % % Monocytes % % Eosinophils % % Basophils % % Neutrophils # (1.6-8.9) K/mcL Lymphocytes # (0.6-4.6) K/mcL Monocytes # (0.0-1.3) K/mcL Eosinophils # (0.0-0.6) K/mcL Basophils # (0.0-0.2) K/mcL PT (9.4-12.1) Seconds INR APTT (26.0-36.0) Seconds VBG pH (7.32-7.42) pH Units VBG pCO2 (41-51) mmHg VBG pO2 (25-50) mmHg VBG HCO3 (21-27) mEq/L Sodium 138 (136-145) mEq/L Potassium 4.4 (3.5-5.1) mEq/L Chloride 102 (98-107) mEq/L Carbon Dioxide 30 H (23-29) mEq/L BUN 17 (8-23) mg/dL Creatinine 1.22 H (0.60-1.20) mg/dL Est GFR ( Amer) 53 L (> 60) Est GFR (Non-Af Amer) 43 L (> 60) BUN/Creatinine Ratio 14 (6-26) Glucose 312 H (70-105) mg/dL Calculated Osmolality 299 (280-300) Lactic Acid 1.1 (0.5-2.2) mmol/L Calcium 9.5 (8.6-10.3) mg/dL Phosphorus 2.0 L (2.7-4.5) mg/dL Magnesium 1.4 L (1.6-2.6) mg/dL Total Bilirubin 0.6 (0.3-1.0) mg/dL Direct Bilirubin 0.2 (0.0-0.2) mg/dL Indirect Bilirubin 0.4 (0.0-1.2) mg/dL AST 33 (13-39) Units/L ALT 27 (7-52) Units/L Alkaline Phosphatase 82 (34-104) Units/L Troponin I 0.03 (< 0.04) ng/mL B-Natriuretic Peptide 82 (Less than 100) pg/mL Serum Total Protein 6.1 L (6.4-8.9) g/dL Albumin 3.4 L (3.5-5.7) g/dL Globulin 2.7 (2.4-3.5) g/dL Albumin/Globulin Ratio 1.3 (1.1-2.2) Urine Color (Yellow) Urine Clarity (Clear) Urine pH (5.0-8.0) pH Units Ur Specific [place] (1.010-1.025) Urine Protein (Neg-Trace) mg/dL Urine Glucose (UA) (Normal) mg/dL Urine Ketones (Negative) mg/dL Urine Blood (Negative) Urine Nitrite (Negative) Urine Bilirubin (Negative) Urine Urobilinogen (Normal) mg/dL Ur Leukocyte Esterase (Negative) Urine Microscopic RBC (0-3) per hpf Urine Microscopic WBC (0-3) per hpf Ur Squamous Epith Cells (None-Few) per lpf Urine Bacteria (None-Few) per hpf Hyaline Casts (None-Few) per lpf Ur Culture Indicated? (NO) 08/10/18 Range/Units 15:20 WBC (4.3-11.1) K/mcL RBC (3.82-4.97) M/mcL Hgb (11.5-15.4) g/dL Hct (35.3-44.9) % MCV (83.0-100.0) fL MCH (28.0-33.3) pg MCHC (31.6-35.5) g/dL RDW (11.5-14.5) % Plt Count (140-400) K/mcL MPV (9.4-12.4) fL Immature Gran % (0-4) % Seg Neutrophils % % Lymphocytes % % Monocytes % % Eosinophils % % Basophils % % Neutrophils # (1.6-8.9) K/mcL Lymphocytes # (0.6-4.6) K/mcL Monocytes # (0.0-1.3) K/mcL Eosinophils # (0.0-0.6) K/mcL Basophils # (0.0-0.2) K/mcL PT (9.4-12.1) Seconds INR APTT (26.0-36.0) Seconds VBG pH 7.30 L (7.32-7.42) pH Units VBG pCO2 57 H (41-51) mmHg VBG pO2 37 (25-50) mmHg VBG HCO3 28 H (21-27) mEq/L Sodium (136-145) mEq/L Potassium (3.5-5.1) mEq/L Chloride (98-107) mEq/L Carbon Dioxide (23-29) mEq/L BUN (8-23) mg/dL Creatinine (0.60-1.20) mg/dL Est GFR ( Amer) (> 60) Est GFR (Non-Af Amer) (> 60) BUN/Creatinine Ratio (6-26) Glucose (70-105) mg/dL Calculated Osmolality (280-300) Lactic Acid (0.5-2.2) mmol/L Calcium (8.6-10.3) mg/dL Phosphorus (2.7-4.5) mg/dL Magnesium (1.6-2.6) mg/dL Total Bilirubin (0.3-1.0) mg/dL Direct Bilirubin (0.0-0.2) mg/dL Indirect Bilirubin (0.0-1.2) mg/dL AST (13-39) Units/L ALT (7-52) Units/L Alkaline Phosphatase (34-104) Units/L Troponin I (< 0.04) ng/mL B-Natriuretic Peptide (Less than 100) pg/mL Serum Total Protein (6.4-8.9) g/dL Albumin (3.5-5.7) g/dL Globulin (2.4-3.5) g/dL Albumin/Globulin Ratio (1.1-2.2) Urine Color (Yellow) Urine Clarity (Clear) Urine pH (5.0-8.0) pH Units Ur Specific [place] (1.010-1.025) Urine Protein (Neg-Trace) mg/dL Urine Glucose (UA) (Normal) mg/dL Urine Ketones (Negative) mg/dL Urine Blood (Negative) Urine Nitrite (Negative) Urine Bilirubin (Negative) Urine Urobilinogen (Normal) mg/dL Ur Leukocyte Esterase (Negative) Urine Microscopic RBC (0-3) per hpf Urine Microscopic WBC (0-3) per hpf Ur Squamous Epith Cells (None-Few) per lpf Urine Bacteria (None-Few) per hpf Hyaline Casts (None-Few) per lpf Ur Culture Indicated? (NO) Attestation Statement - Attestation Attestation: I examined this patient and my medical decision-making was reviewed with the Resident Physician. I agree with the documented findings, disposition and treatment plan as described except to the extent set forth below. I have personally seen and examined the patient patient presents with shortness of breath and has moderate tachypnea in the room. Chest x-ray is consistent with pneumonia the patient will be treated as a healthcare associated pneumonia due to the patient being from an extended care facility
[2018-08-10 15:18] LABS: Basophils % 0.3 %; Hematocrit 47.9 % (35.3-44.9); Immature Granulocytes % 0.7 % (0-4); Lymphocytes # 0.5 K/mcL (0.6-4.6); Lymphocytes % 5.1 %; Mean Corpuscular HGB Conc 31.3 g/dL (31.6-35.5); Mean Corpuscular Hemoglobin 29.3 pg (28.0-33.3); Mean Corpuscular Volume 93.6 fL (83.0-100.0); Monocytes # 0.6 K/mcL (0.0-1.3); Neutrophils # 8.5 K/mcL (1.6-8.9); Platelet Count 114 K/mcL (140-400); Red Blood Count 5.12 M/mcL (3.82-4.97); Red Cell Distribution Width 13.5 % (11.5-14.5); Segmented Neutrophils % 87.9 %
[2018-08-10 15:27] LABS: VBG HCO3 28 mEq/L (21-27); VBG PCO2 57 mmHg (41-51); VBG PO2 37 mmHg (25-50)
[2018-08-10 15:31] LABS: Prothrombin Time 11.6 Seconds (9.4-12.1)
[2018-08-10 15:41] LABS: Albumin 3.4 g/dL (3.5-5.7); Albumin/Globulin Ratio 1.3 (1.1-2.2); Bilirubin,Direct 0.2 mg/dL (0.0-0.2); Bilirubin,Indirect 0.4 mg/dL (0.0-1.2); Bilirubin,Total 0.6 mg/dL (0.3-1.0); Calcium 9.5 mg/dL (8.6-10.3); Globulin 2.7 g/dL (2.4-3.5); Magnesium 1.4 mg/dL (1.6-2.6); Potassium 4.4 mEq/L (3.5-5.1); Total Protein 6.1 g/dL (6.4-8.9)
[2018-08-10 16:42] LABS: Troponin I 0.03 ng/mL (< 0.04)
[2018-08-10] MEDS ORDERED: Levofloxacin 750 MG/150 ML 750 MG/150 ML BAG IVPB SCH ×2 (17:00→23:00)
[2018-08-10] MEDS ORDERED: 0.9 % Sodium Chloride Mini Bag 100 ML ONE (17:01)
--- NOTE | 2018-08-10 19:27 | Electrocardiograph Report ---
[facility] III Test Date: 2018-08-10 Pat Name: Marlene Moon Department: EXAM5 Room: 2A25 Gender: F [employer]: : 1945 Requested By: Hemalatha Howell Order Number: [id number] Reading MD: Cody Arechiga Measurements Intervals [place] Rate: 107 P: 63 KS: 195 QRS: 93 QRSD: 98 T: 62 QT: 319 QTc: 426 Interpretive Statements Sinus tachycardia Low voltage with right axis deviation Electronically Signed On 08-10-2018 19:26:02 EDT by Cody Arechiga
[2018-08-10] MEDS ORDERED: Naloxone 0.4 MG/ML INJ IVP PRN (19:33)
[2018-08-10] MEDS ORDERED: *HR* Dextrose 50 % in Water (Syg) 50 ML SYRINGE IVP PRN (19:37)
[2018-08-10] MEDS ORDERED: Dextrose Gel 15 GM/37.5 ML TUBE PO PRN ×2 (19:37)
[2018-08-10] MEDS ORDERED: D5% in Water 1,000 ML IVC PRN (19:37)
[2018-08-10] MEDS: Ipratropium/Albuterol Neb 3 ML IH SCH ×2 (20:57→23:19)
[2018-08-10] MEDS: Insulin LISPRO 300 UNITS/3 ML VIAL SQ SCH (21:20)
--- NOTE | 2018-08-10 21:26 | Internal Med History&Physical ---
Date of Encounter: 08/10/18 Time of Encounter: 19:00 Internal Medicine - H&P: HPI Chief complaint: Difficulty breathing Admitted From: Long-term Nursing Facility Plans for Post Hospital Care: Transfer Long Term Facility History of present illness: The patient is a 73-year-old woman with multiple medical problems mentioned below. She lives at a intermediate facility. She moves around in a wheelchair, as she has developed morbid obesity (BMI of 49.0). She has had progressing dyspnea with mild cough but not wheezing for the last diffuse last several days. She was found dyspneic in the emergency departmen tput on a 5 L/min nasal cannula oxygen (not using oxygen in the fdc). She is also reporting to as diffuse abdominal pain without nausea or vomitingdeveloping in the last few days. The pain is relatively mild. There is no history of fever or chills. PAST MEDICAL HX: She has been treated for coronary artery disease, congestive heart failure, COPD type 2 diabetes mellitus, hypertension, hyperlipidemia, DJD and osteoporosis. She has developed more been obesity and chronic kidney disease of stage III. PAST FAMILY HX: See below PAST SOCIAL HX: She is a former smoker. There is no history of alcohol or illicit drug use. REVIEW OF SYSTEMS: All 14 organ systems were reviewed by me with the patient. Positive and pertinent negative findings are listed above. The rest of organ systems is negative. PHYSICAL EXAM: The patient is markedly obese woman with a BMI of 49.0. Skin: Free of rash and discoloration. Eyes: Sclera is white. There is no discharge from eyes. ENMT: Oral/pharyngeal mucosa is normal in appearance. There is no discharge from nose or ears. Respiratory: Normal breath sounds with no crackles and wheezes bilaterally. CV: Heart is regular with no gallop or murmur. GI: Abdomen is flat and soft with no palpable mass or visceromegaly. : There is no tenderness in patient's flanks bilaterally. Neuro exam: He has good strength in upper and lower extremities. He has normal eye movements. Psychiatric: He has normal affect. His thought process is appropriate to the situation. ADDITIONAL DATA: Chest x-ray shows consolidation in the left upper lobe and left lung base concerning for pneumonia. There is evidence for a small left pleural effusion. EKG shows sinus tachycardia with a rate of 107/min. With a low voltage/right axis deviation. Hemoglobin is 15.0 with WBC of 9.7 thousand and platelet count of 114,000 (196,000 on 02/20/18). Pro time INR is 1.0. VBG shows a pH of 7.30 with PCO2 of 57, PO2 of 37 and HCO3 of 28. Bicarb is 30; the rest of electrolytes is normal. Creatinine is 1.22 with GFR of 43. She had creatinine of 1.03 with a GFR of 53 on 02/18/18. Lactic acid is 1.1. Calcium is 9.5 with phosphorus of 2.0 and magnesium of 1.4. Liver function tests are normal. A/P: Pneumonia with acute hypoxic respiratory failure. This should be classified as HCAP, as she is coming from her fdc. Blood cultures and urine culture has been obtained. I will continue IV vancomycin and IV cefepime started in the emergency department. She has underlying COPD. I will offer her suplemental oxygen and nebulizer treatments with DuoNebevery 4 hours (scheduled). She has had history of CHF (taking Lasix in the fdc). I will request an echocardiogram. Her coronary artery disease seems to be stable. I will keep her on Toprol-XL with Lipitor and Plavix. She is allergic to aspirin. Type 2 diabetes mellitus, insulin-dependent. I will keep her on Levemir and when necessary Humalog. Her other problems are listed in past medical history. Stable/under control. They seem to have less significance at the time of this admission. Past Med Surg Social Fam HX - Past Medical History Medical history: CHF, COPD, coronary artery disease, diabetes, glaucoma, hepatitis, hyperlipidemia, hypertension, osteoporosis, renal disease Additional medical history: sepsis/pneumonia/anemia/morbid obesity/allergic rhinitis/OA/laceration of abd wall w/foreign body/. enterocolitis d/t c- diff/UTI's/fx toe left foot/neuropathy/hernias/cor pulmonale/ASHD/dysthmic d/o Psychiatric history: anxiety, depression - Past Surgical History Surgical History: cataract, herniorrhaphy Additional surgical history: non healing surgical wound - Social History Smoking Status: Former smoker Smokeless Tobacco Status: No Alcohol use: none Drug use: none - Family History Father Family Member Ethnicity: Non- Living Status: Hx Family Cardiac Disorders: Yes Hx Family Respiratory Disorders: No Hx Family Cancer: No Hx Family GI Disorders: No Hx Family Endocrine Disorder: Yes Hx Family Neuromuscular Disorders: No Hx Family Neurologic Disorders: No Hx Family HEENT Disorders: No Hx Family Autoimmune Disorders: No Mother Family Member Ethnicity: Non- Living Status: Hx Family Cardiac Disorders: Yes Hx Family Respiratory Disorders: Yes Hx Family Cancer: No Hx Family GI Disorders: No Hx Family Endocrine Disorder: No Hx Family Neuromuscular Disorders: No Hx Family Neurologic Disorders: No Hx Family HEENT Disorders: No Hx Family Autoimmune Disorders: No Internal Medicine - H&P: Meds B-Complex with Vitamin C [Vitamin B-Complex with Vit C] 1 each PO DAILY 08/05/15 [History] Guaifenesin [Mucinex] 600 mg PO Q12H PRN 08/05/15 [History] Ipratropium/Albuterol Neb [Duoneb] 3 ml IH Q4H PRN 08/05/15 [History] Latanoprost [Xalatan] 1 drop BOTH EYES HS 08/05/15 [History] Loratadine [Claritin] 10 mg PO DAILY PRN 08/05/15 [History] Polyethylene Glycol 3350 [MiraLAX] 17 gm PO DAILY PRN 08/05/15 [History] Trospium Chloride 20 mg PO BID 08/05/15 [History] Lisinopril [Zestril] 40 mg PO DAILY #30 tablet 08/10/15 [Rx] Brinzolamide 1% [Azopt] 1 drop BOTH EYES HS 05/12/17 [History] Fluticasone/Vilanterol [Breo Ellipta 100-25 Mcg INH] 1 puff IH DAILY 05/12/17 [History] Furosemide [Lasix] 20 mg PO DAILY PRN 05/12/17 [History] Gabapentin [Neurontin] 300 mg PO TID 05/12/17 [History] Glucagon,Human Recombinant [Glucagon Emergency Kit] 1 mg IM ONCE PRN 05/12/17 [History] Guaifenesin [Tussin] 200 mg PO Q6H PRN 05/12/17 [History] Phenyleph/Pramoxin/Glycr/W.pet [Preparation H Cream] 1 appl RC Q6H PRN 05/12/17 [History] Atorvastatin Calcium [Lipitor] 20 mg PO HS 09/16/17 [History] Polyvinyl Alcohol [Artificial Tears] 1 drop OP Q6H PRN 09/16/17 [History] Dextrose [Trueplus Glucose] 15 gm PO AD PRN 02/16/18 [History] Insulin ASPART [NovoLOG] 2 - 10 unit SQ TIDWM 02/16/18 [History] Insulin DETEMIR [Levemir] 60 unit SQ HS 02/16/18 [History] [place]-3/Dha/Epa/Fish Oil [Fish Oil 1,000 mg Softgel] 1 each PO DAILY 02/16/18 [History] Metoprolol XL (24 HR) Succ [Toprol Xl] 25 mg PO DAILY tab.er.24h 02/21/18 [Rx] OxyCODONE/APAP 5/325 [Percocet 5/325 MG] 1 tab PO Q6HR PRN 1 Days #5 tablet 02/21/18 [Rx] Allergy/AdvReac Type Severity Reaction Status Date / Time aspirin [ASA] Allergy Rash Verified 02/14/18 20:51 Penicillins [PCN] Allergy Rash Verified 02/14/18 20:51 adhesive tape AdvReac See Verified 02/14/18 20:51 Comments - Constitutional Vitals: Temp Pulse Resp BP Pulse Ox 99.3 F 102 18 95/43 91 08/10/18 19:36 08/10/18 19:36 08/10/18 18:23 08/10/18 19:36 08/10/18 19:36 General appearance: Present: A&O X 3, no acute distress, answers questions appropriately Exam: xx Internal Med - H&P Results - Labs CBC & Chem 7: 08/10/18 14:55 08/10/18 14:55 Labs: Short CBC 08/10/18 Range/Units 14:55 WBC 9.7 (4.3-11.1) K/mcL Hgb 15.0 (11.5-15.4) g/dL Hct 47.9 H (35.3-44.9) % Plt Count 114 L (140-400) K/mcL Neutrophils # 8.5 (1.6-8.9) K/mcL BMP 08/10/18 14:55 Sodium 138 Potassium 4.4 Chloride 102 Carbon Dioxide 30 H BUN 17 Creatinine 1.22 H Glucose 312 H Calcium 9.5 Cardiac Enzymes 08/10/18 Range/Units 14:55 Troponin I 0.03 (< 0.04) ng/mL Liver Function 08/10/18 Range/Units 14:55 Total Bilirubin 0.6 (0.3-1.0) mg/dL Direct Bilirubin 0.2 (0.0-0.2) mg/dL AST 33 (13-39) Units/L ALT 27 (7-52) Units/L Alkaline Phosphatase 82 (34-104) Units/L Albumin 3.4 L (3.5-5.7) g/dL Urine 08/10/18 Range/Units 14:25 Urine Color Yellow (Yellow) Urine Clarity Clear (Clear) Urine pH 5.0 (5.0-8.0) pH Units Ur Specific [place] 1.022 (1.010-1.025) Urine Protein 30 H (Neg-Trace) mg/dL Urine Glucose (UA) 500 H (Normal) mg/dL - ABG Interpretation ABG results: 08/10/18 15:20 VBG pH 7.30 L VBG pCO2 57 H VBG pO2 37 VBG HCO3 28 H - Impressions ITS Impressions Chest X-Ray 08/10/18 14:23 IMPRESSION: 1. Consolidation in the left upper lobe and left lung base concerning for pneumonia. Radiographic follow up recommended in 4-6 weeks. 2. Small left pleural effusion D/ / Gabriel Napier MD / Gabriel Napier MD Interpreting Provider: Gabriel Napier MD - Assessment and Plan (1) HCAP (healthcare-associated pneumonia) Current Visit: Yes Status: Acute (2) Acute respiratory failure with hypoxia Current Visit: No Status: Acute (3) CHF (congestive heart failure) Current Visit: No Status: Resolved Qualifiers: Heart failure type: unspecified Heart failure chronicity: unspecified Qualified Code(s): I50.9 - Heart failure, unspecified (4) CAD (coronary artery disease) Current Visit: Yes Status: Chronic Qualifiers: Coronary Disease-Associated Artery/Lesion type: [place] artery [place] vs. transplanted heart: [place] heart Associated angina: without angina Qualified Code(s): I25.10 - Atherosclerotic heart disease of [place] coronary artery without angina pectoris (5) T2DM (type 2 diabetes mellitus) Current Visit: Yes Status: Acute Qualifiers: Diabetes mellitus bed bug exterminator insulin use: with bed bug exterminator use Diabetes mellitus complication status: without complication Qualified Code(s): E11.9 - Type 2 diabetes mellitus without complications; Z79.4 - USP (current) use of insulin - Time Spent With Patient Total time spent is greater than 50% in coordination of care (as documented) at patient's floor/unit and/or counseling patient: 25 - 35 minutes
[2018-08-10] MEDS: Insulin DETEMIR 100 UNIT/ML X5UNITS SQ SCH (21:31)
[2018-08-10 23:32] LABS: Estimated Average Glucose 223 mg/dl; Hemoglobin A1C 9.4 %
[2018-08-11] MEDS: Ipratropium/Albuterol Neb 3 ML IH SCH ×5 (04:29→20:07)
[2018-08-11] MEDS: Cefepime HCl 2,000 MG in Water for inj. (sterile) 20 ML 20 ML IVP SCH ×2 (06:28→17:32)
[2018-08-11] MEDS: Insulin LISPRO 300 UNITS/3 ML VIAL SQ SCH ×8 (07:58→22:16)
[2018-08-11] MEDS ORDERED: Acetaminophen/Butalbital/CaffeineTABLET PO ONE (12:55)
[2018-08-11] MEDS ORDERED: Mag Hydrox/Al Hydrox/Simeth 30 ML UDC PO PRN (16:24)
[2018-08-11] MEDS ORDERED: Cefepime HCl 2,000 MG in 0.9 % Sodium Chloride Mini Bag 100 ML IVPB ONE (16:28)
[2018-08-11] MEDS: *HR* Heparin 5,000 UNIT/ML VIAL SQ SCH (17:30)
[2018-08-11] MEDS: Insulin DETEMIR 100 UNIT/ML X5UNITS SQ SCH (22:16)
[2018-08-11] MEDS ORDERED: Loratadine 10 MG TABLET PO PRN (23:29)
[2018-08-11] MEDS ORDERED: Furosemide 20 MG TABLET PO PRN (23:29)
[2018-08-11] MEDS ORDERED: *HR* OxyCODONE/APAP 5/325 TABLET PO PRN (23:29)
--- NOTE | 2018-08-11 23:36 | Internal Med Progress Note ---
Hospitalist Progress Note - Encounter Date of Encounter: 08/11/18 Time of Encounter: 19:00 - Subjective Interval History: SUBJECTIVE: Her breathing is not labored in the morning. She continues to have some cough but not wheezing. Denies chest pain. Complains of mid epigastric pain; of burning sensation. She has no urinary symptoms. OBJECTIVE: Skin: Free of rash and discoloration. ENMT: Oral/pharyngeal mucosa is normal in appearance. Eyes: Sclera is white. There is no discharge from eyes. Respiratory: Normal breath sounds; no crackles or wheezes. CV: Heart is regular; no gallop or murmur. GI: Abdomen is soft. It is mildly tender in midepigastrium. There is no palpable mass or visceromegaly. Neuro: There is no focal deficits. ADDITIONAL DATA: Chest x-ray done at admission showed changes in the left upper lobe and left lung base concerning for pneumonia. I am ordering CBC and BMP for tomorrow. ASSESSMENT AND PLAN: Healthcare associated pneumonia with acute hypoxic respiratory failure. Blood cultures are pending. I will continue IV vancomycin and IV cefepime. With nebulizer treatments of DuoNeb. Possible congestive heart failure (per history). I am ordering echocardiogram. Coronary artery disease. To continue Toprol-XL and Lipitor. I will put her on Plavix. She cannot take aspirin. - Exam Vitals: Temp Pulse Resp BP Pulse Ox 99 F 112 16 137/70 94 08/11/18 23:15 08/11/18 23:15 08/11/18 23:15 08/11/18 23:15 08/11/18 23:15 Exam: xx - Assessment and Plan (1) HCAP (healthcare-associated pneumonia) Current Visit: Yes Status: Acute (2) Acute respiratory failure with hypoxia Current Visit: No Status: Acute (3) CHF (congestive heart failure) Current Visit: No Status: Resolved (4) CAD (coronary artery disease) Current Visit: Yes Status: Chronic (5) T2DM (type 2 diabetes mellitus) Current Visit: Yes Status: Acute - Time Spent with Patient Total time spent is greater than 50% in coordination of care (as documented) at patient's floor/unit and/or counseling patient: 25 - 35 minutes Plan of Care Discussed with: patient Internal Medicine: Result - Labs CBC & Chem 7: 08/10/18 14:55 08/10/18 14:55 - ABG Interpretation ABG results: PT/INR, D-dimer PT 11.6 Seconds (9.4-12.1) 08/10/18 14:55 Consult Discharge Plan - Plan Referrals: Lauro Hogue MD [Primary Care Provider] - ____ (3) CHF (congestive heart failure) Qualifiers: Heart failure type: unspecified Heart failure chronicity: unspecified Qualified Code(s): I50.9 - Heart failure, unspecified (4) CAD (coronary artery disease) Qualifiers: Coronary Disease-Associated Artery/Lesion type: [place] artery [place] vs. transplanted heart: [place] heart Associated angina: without angina Qualified Code(s): I25.10 - Atherosclerotic heart disease of [place] coronary artery without angina pectoris (5) T2DM (type 2 diabetes mellitus) Qualifiers: Diabetes mellitus traveling engineer insulin use: with [facility] use Diabetes mellitus complication status: without complication Qualified Code(s): E11.9 - Type 2 diabetes mellitus without complications; Z79.4 - longterm (current) use of insulin
[2018-08-11] MEDS ORDERED: Ondansetron 4 MG/2 ML VIAL IVP PRN (23:50)
[2018-08-12] MEDS: Ipratropium/Albuterol Neb 3 ML IH SCH ×6 (00:06→20:29)
[2018-08-12 06:20] LABS: Basophils % 0.1 %; Hematocrit 40.4 % (35.3-44.9); Immature Granulocytes % 0.4 % (0-4); Lymphocytes % 11.9 %; Mean Corpuscular HGB Conc 31.4 g/dL (31.6-35.5); Mean Corpuscular Hemoglobin 29.2 pg (28.0-33.3); Mean Corpuscular Volume 92.9 fL (83.0-100.0); Mean Platelet Volume 11.2 fL (9.4-12.4); Monocytes # 0.4 K/mcL (0.0-1.3); Monocytes % 5.2 %; Neutrophils # 6.6 K/mcL (1.6-8.9); Platelet Count 116 K/mcL (140-400); Red Blood Count 4.35 M/mcL (3.82-4.97); Red Cell Distribution Width 13.8 % (11.5-14.5); Segmented Neutrophils % 82.4 %
[2018-08-12 06:21] LABS: Hemoglobin 12.7 g/dL (11.5-15.4)
[2018-08-12 06:24] LABS: Calcium 9.7 mg/dL (8.6-10.3); Potassium 4.2 mEq/L (3.5-5.1)
[2018-08-12] MEDS: Cefepime HCl 2,000 MG in Water for inj. (sterile) 20 ML 20 ML IVP SCH ×2 (06:39→18:09)
[2018-08-12] MEDS: *HR* Heparin 5,000 UNIT/ML VIAL SQ SCH ×2 (06:39→18:08)
[2018-08-12] MEDS: Insulin LISPRO 300 UNITS/3 ML VIAL SQ SCH ×7 (08:22→20:57)
[2018-08-12] MEDS: Metoprolol XL (24 HR) Succ 25 MG TAB.ER.24H PO SCH (08:24)
[2018-08-12] MEDS: Gabapentin 300 MG CAPSULE PO SCH ×3 (08:24→20:57)
[2018-08-12] MEDS: Lisinopril 20 MG TABLET PO SCH (08:24)
[2018-08-12] MEDS ORDERED: (Breo Ellipta 100-25 Mcg Inh) IH SCH (09:00)
[2018-08-12] MEDS ORDERED: Metoprolol XL (24 HR) Succ 25 MG TAB.ER.24H PO SCH (09:00)
[2018-08-12] MEDS: Budesonide/Formoterol 160/4.5 1 PUFF INH IH SCH ×2 (11:20→20:29)
[2018-08-12] MEDS ORDERED: Perflutren Lipid Microsphere 1.3 ML in 0.9 % Sodium Chloride 8.7 ML IVP ONE (13:51)
--- NOTE | 2018-08-12 14:53 | Internal Med Progress Note ---
Hospitalist Progress Note - Encounter Date of Encounter: 08/12/18 Time of Encounter: 14:51 - Subjective Interval History: I have seen and evaluated the patient at bedside. patient reports she is less short of breath today. denies chest pain, nausea, vomiting abdominal pain or loose stool - Exam Vitals: Temp Pulse Resp BP Pulse Ox 99.3 F 105 24 145/66 93 08/12/18 11:00 08/12/18 11:00 08/12/18 11:20 08/12/18 11:00 08/12/18 11:20 Exam: Vitals: reviewed. General: Morbidly obese, Alert and oriented x3. In no distress Cardiovascular: RRR, normal S1 & S2, no rubs, murmurs or gallops. Lungs: Rales at the left lower lobe, no wheezes or crackles b/l. Abdomen: Obese, Soft, non-tender, no rigidity. Extremities: No deformity, no edema Neurological: Normal cognition Rest of the physical exam is non contributory - Assessment and Plan (1) Acute respiratory failure with hypoxia Current Visit: No Status: Acute Assessment and Plan: Rales at the left lower lobe. No wheezing. Patient is on Symbicort, continue bronchodilators as scheduled. Incentive spirometry, oxygen by nasal cannula, titrate for O2 sat duration more than 92%. (2) HCAP (healthcare-associated pneumonia) Current Visit: Yes Status: Acute Assessment and Plan: Patient on broad-spectrum antibiotics. Continue vancomycin and cefepime. Blood cultures: No growth, pending final report. (3) CHF (congestive heart failure) Current Visit: No Status: Chronic Assessment and Plan: Patient not on acute exacerbation. Continue furosemide 20 mg by mouth daily. On an ACEs and a bb. Fluid restriction to 1.5 L a day, plus daily weight and strict intake and output. (4) CAD (coronary artery disease) Current Visit: Yes Status: Chronic Assessment and Plan: On clopidogrel 75 mg by mouth daily. (5) T2DM (type 2 diabetes mellitus) Current Visit: Yes Status: Chronic Assessment and Plan: Blood sugar suboptimally controlled. DC levemir 50 units HS. will add levemir 30 units BID, continue lispro 10 units ac, plus low dose sliding scale. carbs controlled diet. (6) HLD (hyperlipidemia) Current Visit: Yes Status: Chronic Assessment and Plan: On atorvastatin 20 mg by mouth at bedtime. (7) COPD (chronic obstructive pulmonary disease) Current Visit: No Status: Chronic Assessment and Plan: Plan of care as per problem #1. (8) Hypertension Current Visit: No Status: Chronic Assessment and Plan: Blood pressures well controlled. Patient is on lisinopril and metoprolol and furosemide. (9) UTI (urinary tract infection) Current Visit: Yes Status: Acute Assessment and Plan: urine culture: gram negative Cj. pending sensitivity and specificity. Patient on broad spectrum IV antibiotics. DVT Prophylaxis: On heparin subQ. - Summary of Assessment and Plan Summary of Assessment and Plan: Patient to remain in the hospital due to HCAP on broad spectrum IV antibiotics. - Time Spent with Patient Total time spent is greater than 50% in coordination of care (as documented) at patient's floor/unit and/or counseling patient: Greater than 35 minutes (40) Plan of Care Discussed with: patient (and the nurse.) Internal Medicine: Result - Labs CBC & Chem 7: 08/12/18 04:41 08/12/18 04:41 Labs: Short CBC 08/12/18 Range/Units 04:41 WBC 8.0 (4.3-11.1) K/mcL Hgb 12.7 D (11.5-15.4) g/dL Hct 40.4 (35.3-44.9) % Plt Count 116 L (140-400) K/mcL Neutrophils # 6.6 (1.6-8.9) K/mcL BMP 08/12/18 04:41 Sodium 141 Potassium 4.2 Chloride 103 Carbon Dioxide 31 H BUN 19 Creatinine 1.20 Glucose 206 H Calcium 9.7 - ABG Interpretation ABG results: PT/INR, D-dimer PT 11.6 Seconds (9.4-12.1) 08/10/18 14:55 Consult Discharge Plan - Plan Referrals: Lauro Hogue MD [Primary Care Provider] - (3) CHF (congestive heart failure) Qualifiers: Heart failure type: unspecified Heart failure chronicity: unspecified Qualified Code(s): I50.9 - Heart failure, unspecified (4) CAD (coronary artery disease) Qualifiers: Coronary Disease-Associated Artery/Lesion type: [place] artery [place] vs. transplanted heart: [place] heart Associated angina: without angina Qualified Code(s): I25.10 - Atherosclerotic heart disease of [place] coronary artery without angina pectoris (5) T2DM (type 2 diabetes mellitus) Qualifiers: Diabetes mellitus terminal block assembler insulin use: with terminal block assembler use Diabetes mellitus complication status: without complication Qualified Code(s): E11.9 - Type 2 diabetes mellitus without complications; Z79.4 - terminal manager (current) use of insulin (6) HLD (hyperlipidemia) Qualifiers: Hyperlipidemia type: unspecified Qualified Code(s): E78.5 - Hyperlipidemia, unspecified (7) COPD (chronic obstructive pulmonary disease) Qualifiers: COPD type: unspecified COPD Qualified Code(s): J44.9 - Chronic obstructive pulmonary disease, unspecified (8) Hypertension Qualifiers: Hypertension type: essential hypertension Qualified Code(s): I10 - Essential (primary) hypertension (9) UTI (urinary tract infection) Qualifiers: Urinary tract infection type: site unspecified Hematuria presence: without hematuria Qualified Code(s): N39.0 - Urinary tract infection, site not specified
[2018-08-12] MEDS: Insulin DETEMIR 100 UNIT/ML X5UNITS SQ SCH (20:57)
[2018-08-12] MEDS ORDERED: Latanoprost 2.5 ML BOTTLE BOTH EYES SCH (21:00)
[2018-08-13] MEDS: Ipratropium/Albuterol Neb 3 ML IH SCH ×5 (00:14→15:29)
[2018-08-13] MEDS: *HR* Heparin 5,000 UNIT/ML VIAL SQ SCH (05:52)
[2018-08-13] MEDS: Cefepime HCl 2,000 MG in Water for inj. (sterile) 20 ML 20 ML IVP SCH (05:52)
[2018-08-13 07:20] LABS: Basophils % 0.2 %; Eosinophils # 0.1 K/mcL (0.0-0.6); Eosinophils % 1.4 %; Hematocrit 41.5 % (35.3-44.9); Hemoglobin 12.9 g/dL (11.5-15.4); Immature Granulocytes % 0.2 % (0-4); Lymphocytes # 1.3 K/mcL (0.6-4.6); Lymphocytes % 24.9 %; Mean Corpuscular HGB Conc 31.1 g/dL (31.6-35.5); Mean Corpuscular Hemoglobin 29.3 pg (28.0-33.3); Mean Corpuscular Volume 94.1 fL (83.0-100.0); Mean Platelet Volume 10.7 fL (9.4-12.4); Monocytes # 0.4 K/mcL (0.0-1.3); Monocytes % 7.1 %; Neutrophils # 3.4 K/mcL (1.6-8.9); Platelet Count 117 K/mcL (140-400); Red Blood Count 4.41 M/mcL (3.82-4.97); Red Cell Distribution Width 13.9 % (11.5-14.5); Segmented Neutrophils % 66.2 %
[2018-08-13 07:31] LABS: BUN/Creatinine Ratio 15 (6-26); Blood Urea Nitrogen 16 mg/dL (8-23); Calcium 9.7 mg/dL (8.6-10.3); Carbon Dioxide 32 mEq/L (23-29); Chloride 108 mEq/L (98-107); Glucose 138 mg/dL (70-105); Magnesium 1.7 mg/dL (1.6-2.6); Osmolality,Calculated 303 (280-300); Phosphorous 2.6 mg/dL (2.7-4.5); Potassium 3.9 mEq/L (3.5-5.1); Sodium 145 mEq/L (136-145); eGFR For Non-African Americans 51 (> 60)
[2018-08-13] MEDS: Budesonide/Formoterol 160/4.5 1 PUFF INH IH SCH (07:31)
[2018-08-13] MEDS: Gabapentin 300 MG CAPSULE PO SCH ×2 (08:04→15:23)
[2018-08-13] MEDS: Insulin LISPRO 300 UNITS/3 ML VIAL SQ SCH ×6 (08:04→17:05)
[2018-08-13] MEDS: Lisinopril 20 MG TABLET PO SCH (08:04)
[2018-08-13] MEDS: Metoprolol XL (24 HR) Succ 25 MG TAB.ER.24H PO SCH (08:05)
[2018-08-13] MEDS: Insulin DETEMIR 100 UNIT/ML X5UNITS SQ SCH (08:10)
[2018-08-13] MEDS ORDERED: Furosemide 20 MG TABLET PO SCH (11:30)
--- NOTE | 2018-08-13 14:04 | Discharge Summary ---
- NOTES TO OUTPATIENT PROVIDER Notes to Outpatient Provider: Follow-up with your primary care physician within a week of hospital discharge. Orders not resulted at time of discharge: Pending orders 08/10/18 14:55 Culture,Blood [BC] Stat Date of Encounter: 08/13/18 Time of Encounter: 14:00 - Discharge Diagnosis (1) Acute respiratory failure with hypoxia Priority: Primary Status: Resolved (2) HCAP (healthcare-associated pneumonia) Priority: Secondary Status: Acute (3) CHF (congestive heart failure) Priority: Secondary Status: Chronic Assessment and Plan: unspeficy type. Qualifiers: Heart failure type: unspecified Heart failure chronicity: unspecified Qualified Code(s): I50.9 - Heart failure, unspecified (4) CAD (coronary artery disease) Priority: Secondary Status: Chronic Qualifiers: Coronary Disease-Associated Artery/Lesion type: [place] artery [place] vs. transplanted heart: iroquois heart Associated angina: without angina Qualified Code(s): I25.10 - Atherosclerotic heart disease of [place]ro[place] coronary artery without angina pectoris (5) T2DM (type 2 diabetes mellitus) Priority: Secondary Status: Chronic Qualifiers: Diabetes mellitus long chain beamer insulin use: with long chain beamer use Diabetes mellitus complication status: without complication Qualified Code(s): E11.9 - Type 2 diabetes mellitus without complications; Z79.4 - termination clerk (current) use of insulin (6) HLD (hyperlipidemia) Priority: Secondary Status: Chronic Qualifiers: Hyperlipidemia type: unspecified Qualified Code(s): E78.5 - Hyperlipidemia, unspecified (7) COPD (chronic obstructive pulmonary disease) Priority: Secondary Status: Chronic Qualifiers: COPD type: unspecified COPD Qualified Code(s): J44.9 - Chronic obstructive pulmonary disease, unspecified (8) Hypertension Priority: Secondary Status: Chronic Qualifiers: Hypertension type: essential hypertension Qualified Code(s): I10 - Essential (primary) hypertension (9) UTI (urinary tract infection) Priority: Secondary Status: Acute Qualifiers: Urinary tract infection type: site unspecified Hematuria presence: without hematuria Qualified Code(s): N39.0 - Urinary tract infection, site not specified Hospital course: Ms. Moon is a 73 year old female past medical history of CHF, COPD, coronary artery disease, diabetes, glaucoma, hepatitis, hyperlipidemia, hypertension, osteoporosis, renal disease. Patient presented to the emergency room due to dyspnea associated with productive cough. In the emergency room found to be hypoxemic requiring 5 L of oxygen by nasal cannula. Chest x-ray: 1. Consolidation in the left upper lobe and left lung base concerning for pneumonia. Radiographic follow up recommended in 4-6 weeks. 2. Small left pleural effusion. Patient admitted to the hospital due to pneumonia, urinary tract infection, and hypoxemic respiratory failure. Patient was managed with broad-spectrum IV antibiotics. Blood cultures: No growth for more than 48 hours. Urine cultures grew Escherichia coli ESBL. Patient is hemodynamically stable to be discharged on a carbapenem to complete 10 days of antibiotics treatment. - Time Spent with Patient Total time spent providing and/or coordinating discharge services: Time spent: Greater than 30 minutes (35), D/C greater than 8 hours after Admission - Discharge Medications Prescriptions: Continue Loratadine [Claritin] 10 mg PO DAILY PRN PRN Reason: Allergy Symptoms Guaifenesin [Mucinex] 600 mg PO Q12H PRN PRN Reason: Congestion Polyethylene Glycol 3350 [MiraLAX] 17 gm PO DAILY PRN PRN Reason: Constipation Ipratropium/Albuterol Neb [Duoneb] 3 ml IH Q4H PRN PRN Reason: Shortness Of Breath Latanoprost [Xalatan] 1 drop BOTH EYES HS Trospium Chloride 20 mg PO BID B-Complex with Vitamin C [Vitamin B-Complex with Vit C] 1 each PO DAILY Lisinopril [Zestril] 40 mg PO DAILY #30 tablet Guaifenesin [Tussin] 200 mg PO Q6H PRN PRN Reason: Cough/Congestion Phenyleph/Pramoxin/Glycr/W.pet [Preparation H Cream] 1 appl RC Q6H PRN PRN Reason: Itching Furosemide [Lasix] 20 mg PO DAILY PRN PRN Reason: Edema Glucagon,Human Recombinant [Glucagon Emergency Kit] 1 mg IM ONCE PRN PRN Reason: Hypoglycemia Fluticasone/Vilanterol [Breo Ellipta 100-25 Mcg INH] 1 puff IH DAILY Brinzolamide 1% [Azopt] 1 drop BOTH EYES HS Gabapentin [Neurontin] 300 mg PO TID Atorvastatin Calcium [Lipitor] 20 mg PO HS Polyvinyl Alcohol [Artificial Tears] 1 drop OP Q6H PRN PRN Reason: Dry Eye(S) Dextrose [Trueplus Glucose] 15 gm PO AD PRN PRN Reason: Hypoglycemia [place]-3/Dha/Epa/Fish Oil [Fish Oil 1,000 mg Softgel] 1 each PO DAILY Insulin DETEMIR [Levemir] 60 unit SQ HS Insulin ASPART [NovoLOG] 2 - 10 unit SQ TIDWM Metoprolol XL (24 HR) Succ [Toprol Xl] 25 mg PO DAILY tab.er.24h OxyCODONE/APAP 5/325 [Percocet 5/325 MG] 1 tab PO Q6HR PRN 1 Days #5 tablet PRN Reason: Pain Home Medications: B-Complex with Vitamin C [Vitamin B-Complex with Vit C] 1 each PO DAILY 08/05/15 [History] Guaifenesin [Mucinex] 600 mg PO Q12H PRN 08/05/15 [History] Ipratropium/Albuterol Neb [Duoneb] 3 ml IH Q4H PRN 08/05/15 [History] Latanoprost [Xalatan] 1 drop BOTH EYES HS 08/05/15 [History] Loratadine [Claritin] 10 mg PO DAILY PRN 08/05/15 [History] Polyethylene Glycol 3350 [MiraLAX] 17 gm PO DAILY PRN 08/05/15 [History] Trospium Chloride 20 mg PO BID 08/05/15 [History] Lisinopril [Zestril] 40 mg PO DAILY #30 tablet 08/10/15 [Rx] Brinzolamide 1% [Azopt] 1 drop BOTH EYES HS 05/12/17 [History] Fluticasone/Vilanterol [Breo Ellipta 100-25 Mcg INH] 1 puff IH DAILY 05/12/17 [History] Furosemide [Lasix] 20 mg PO DAILY PRN 05/12/17 [History] Gabapentin [Neurontin] 300 mg PO TID 05/12/17 [History] Glucagon,Human Recombinant [Glucagon Emergency Kit] 1 mg IM ONCE PRN 05/12/17 [History] Guaifenesin [Tussin] 200 mg PO Q6H PRN 05/12/17 [History] Phenyleph/Pramoxin/Glycr/W.pet [Preparation H Cream] 1 appl RC Q6H PRN 05/12/17 [History] Atorvastatin Calcium [Lipitor] 20 mg PO HS 09/16/17 [History] Polyvinyl Alcohol [Artificial Tears] 1 drop OP Q6H PRN 09/16/17 [History] Dextrose [Trueplus Glucose] 15 gm PO AD PRN 02/16/18 [History] Insulin ASPART [NovoLOG] 2 - 10 unit SQ TIDWM 02/16/18 [History] Insulin DETEMIR [Levemir] 60 unit SQ HS 02/16/18 [History] [place]-3/Dha/Epa/Fish Oil [Fish Oil 1,000 mg Softgel] 1 each PO DAILY 02/16/18 [History] Metoprolol XL (24 HR) Succ [Toprol Xl] 25 mg PO DAILY tab.er.24h 02/21/18 [Rx] OxyCODONE/APAP 5/325 [Percocet 5/325 MG] 1 tab PO Q6HR PRN 1 Days #5 tablet 02/21/18 [Rx] Allergies/Adverse Reactions: Allergy/AdvReac Type Severity Reaction Status Date / Time aspirin [ASA] Allergy Rash Verified 02/14/18 20:51 Penicillins [PCN] Allergy Rash Verified 02/14/18 20:51 adhesive tape AdvReac See Verified 02/14/18 20:51 Comments Date of admission: 08/10/18 19:33 Primary care physician: Lauro Hogue MD Consults: 08/11/18 08:05 Consult to Nurse Navigator [CONS] Routine Comment: pn Consult to Slot Shift Supervisor [CONS] Routine Reason for SW Consult: return to [facility] - Constitutional Vitals: Temp Pulse Resp BP Pulse Ox 97.9 F 92 18 149/53 96 08/13/18 12:32 08/13/18 12:32 08/13/18 12:32 08/13/18 12:32 08/13/18 12:32 General appearance: Present: A&O X 3, no acute distress, answers questions appropriately Exam: Vitals: Reviewed General: morbidly obese, Alert and oriented x4. In no distress Cardiovascular: RRR, normal S1 & S2, no rubs, murmurs or gallops. Lungs: CTA b/l, no wheezes or crackles. Abdomen: Obese, soft, non-tender, no rigidity. Extremities: No deformity, no edema Neurological: Normal cognition and motor skills. Rest of the physical exam is non contributory - Patient Status Disposition: Transfer LTC Condition: Good Functional capacity at discharge: wheelchair bound Overall status at discharge: patient is progressing back to baseline - Discharge Instructions Instructions: Ertapenem (Injection), Urinary Tract Infection in Women (DC), P neumonia (DC) Follow Up With: Lauro Hogue MD [Primary Care Provider] - (WMP) - Diet and Activity Activity: wear oxygen at all times (3 litters ) Diet: diabetic diet
--- NOTE | 2018-08-13 14:10 | Physician Discharge Referral ---
ExtendedCare Referral Info Transfer To: [facility] - Diagnosis (1) Acute respiratory failure with hypoxia Priority: Primary Status: Resolved (2) HCAP (healthcare-associated pneumonia) Priority: Secondary Status: Acute (3) CHF (congestive heart failure) Priority: Secondary Status: Chronic (4) CAD (coronary artery disease) Priority: Secondary Status: Chronic (5) T2DM (type 2 diabetes mellitus) Priority: Secondary Status: Chronic (6) HLD (hyperlipidemia) Priority: Secondary Status: Chronic (7) COPD (chronic obstructive pulmonary disease) Priority: Secondary Status: Chronic (8) Hypertension Priority: Secondary Status: Chronic (9) UTI (urinary tract infection) Priority: Secondary Status: Acute Prognosis: Fair Aware of Diagnosis: Patient Aware of Prognosis: Patient - Transfer Medications Home Medications: B-Complex with Vitamin C [Vitamin B-Complex with Vit C] 1 each PO DAILY 08/05/15 [History] Guaifenesin [Mucinex] 600 mg PO Q12H PRN 08/05/15 [History] Ipratropium/Albuterol Neb [Duoneb] 3 ml IH Q4H PRN 08/05/15 [History] Latanoprost [Xalatan] 1 drop BOTH EYES HS 08/05/15 [History] Loratadine [Claritin] 10 mg PO DAILY PRN 08/05/15 [History] Polyethylene Glycol 3350 [MiraLAX] 17 gm PO DAILY PRN 08/05/15 [History] Trospium Chloride 20 mg PO BID 08/05/15 [History] Lisinopril [Zestril] 40 mg PO DAILY #30 tablet 08/10/15 [Rx] Brinzolamide 1% [Azopt] 1 drop BOTH EYES HS 05/12/17 [History] Fluticasone/Vilanterol [Breo Ellipta 100-25 Mcg INH] 1 puff IH DAILY 05/12/17 [History] Furosemide [Lasix] 20 mg PO DAILY PRN 05/12/17 [History] Gabapentin [Neurontin] 300 mg PO TID 05/12/17 [History] Glucagon,Human Recombinant [Glucagon Emergency Kit] 1 mg IM ONCE PRN 05/12/17 [History] Guaifenesin [Tussin] 200 mg PO Q6H PRN 05/12/17 [History] Phenyleph/Pramoxin/Glycr/W.pet [Preparation H Cream] 1 appl RC Q6H PRN 05/12/17 [History] Atorvastatin Calcium [Lipitor] 20 mg PO HS 09/16/17 [History] Polyvinyl Alcohol [Artificial Tears] 1 drop OP Q6H PRN 09/16/17 [History] Dextrose [Trueplus Glucose] 15 gm PO AD PRN 02/16/18 [History] Insulin ASPART [NovoLOG] 2 - 10 unit SQ TIDWM 02/16/18 [History] Insulin DETEMIR [Levemir] 60 unit SQ HS 02/16/18 [History] [address]/Dha/Epa/Fish Oil [Fish Oil 1,000 mg Softgel] 1 each PO DAILY 02/16/18 [History] Metoprolol XL (24 HR) Succ [Toprol Xl] 25 mg PO DAILY tab.er.24h 02/21/18 [Rx] OxyCODONE/APAP 5/325 [Percocet 5/325 MG] 1 tab PO Q6HR PRN 1 Days #5 tablet 02/21/18 [Rx] Allergies/Adverse Reactions: Allergy/AdvReac Type Severity Reaction Status Date / Time aspirin [ASA] Allergy Rash Verified 02/14/18 20:51 Penicillins [PCN] Allergy Rash Verified 02/14/18 20:51 adhesive tape AdvReac See Verified 02/14/18 20:51 Comments - Respiratory Orders Oxygen / L per min (3 litters) Smoking Cessation: Smoking cessation has been advised. For more information, call the [place] Tobacco Quit Line at [phone]. - Advance Directives Code Status: DNR-Arrest/Don't Intubate - Mobility Orders Chair - Rehabiliation Orders Rehab Potential: Poor Rehab Orders: Evaluation for Physical Therapy, Evaluation for Occupational Therapy - Diet Orders Regular CERTIFICATION: I certify that the transfer of the above named patient to an Extended Care Facility is necessary for the continuing treatment of the diagnosis listed. The above information is true and accurate reflection of patient's current condition. Confidential - Redisclosure prohibited without a patient's written consent.
[2018-08-13] MEDS ORDERED: Ertapenem 1,000 MG in 0.9 % Sodium Chloride Mini Bag 100 ML IVPB SCH (16:00)
[2018-08-13] MEDS ORDERED: Piperacillin/Tazobactam 3.375 GM in 0.9 % Sodium Chloride Mini Bag 100 ML IVPB SCH (16:00)
[2018-08-13 17:00] VITALS: BP 130/63
== END 2018-08-13 18:42 | DRG 463 ==
LOC: EMEROOARM 14:08 → 2ANU 14:08 → SUATTDRO 19:33
PROVIDERS: ADMIT Internal Medicine Nephrology; ATTEND Internal Medicine

== ENCOUNTER 2019-12-17 15:00 | Inpatient (IN) ==
[2019-12-17] MEDS ORDERED: Ondansetron ODT 4 MG TAB.RAPDIS PO PRN (16:36)
[2019-12-17] MEDS ORDERED: Ringers Solution, Lactated 1,000 ML IVC SCH (16:45)
[2019-12-17 16:52] LABS: Basophils % 0.3 %; Eosinophils # 0.5 K/mcL (0.0-0.6); Eosinophils % 6.6 %; Hematocrit 39.8 % (35.3-44.9); Hemoglobin 12.2 g/dL (11.5-15.4); Immature Granulocytes % 0.4 % (0-4); Lymphocytes % 29.4 %; Mean Corpuscular HGB Conc 30.7 g/dL (31.6-35.5); Mean Corpuscular Hemoglobin 30.4 pg (28.0-33.3); Mean Corpuscular Volume 99.3 fL (83.0-100.0); Mean Platelet Volume 11.3 fL (9.4-12.4); Monocytes # 0.5 K/mcL (0.0-1.3); Monocytes % 7.8 %; Neutrophils # 3.8 K/mcL (1.6-8.9); Platelet Count 168 K/mcL (140-400); Red Blood Count 4.01 M/mcL (3.82-4.97); Red Cell Distribution Width 14.6 % (11.5-14.5); Segmented Neutrophils % 55.5 %; White Blood Count 6.9 K/mcL (4.3-11.1)
[2019-12-17] MEDS ORDERED: Vancomycin 0 MG in 0.9 % Sodium Chloride 250 ML IVPB SCH (17:00)
[2019-12-17] MEDS ORDERED: Vancomycin 2,000 MG/520 ML IV.SOLN IVPB ONE (17:07)
[2019-12-17 17:09] LABS: BUN/Creatinine Ratio 15 (6-26); Blood Urea Nitrogen 14 mg/dL (8-23); Calcium 10.8 mg/dL (8.6-10.3); Carbon Dioxide 27 mEq/L (23-29); Chloride 107 mEq/L (98-107); Glucose 135 mg/dL (70-105); Osmolality,Calculated 295 (280-300); Potassium 3.9 mEq/L (3.5-5.1); Sodium 141 mEq/L (136-145); eGFR For African Americans > 60 (> 60); eGFR For Non-African Americans 60 (> 60)
[2019-12-17] MEDS: Insulin LISPRO 300 UNITS/3 ML VIAL SQ SCH (18:40)
[2019-12-17] MEDS ORDERED: Ethanol\\Acetic Acid\\Na Ace\\Ben 1,000 ML IRRIG.SOLN IR ONE (19:50)
[2019-12-17] MEDS ORDERED: Vancomycin 1,000 MG VIAL ONE (21:27)
[2019-12-17] MEDS ORDERED: *HR* FentaNYL (PF) 100 MCG/2 ML VIAL IVP PRN (21:31)
[2019-12-17] MEDS ORDERED: Lidocaine -MPF 2% 2 ML VIAL ONE (21:38)
[2019-12-17] MEDS ORDERED: *HR* Propofol 200 MG/20 ML VIAL IVP ONE (21:39)
[2019-12-17] MEDS ORDERED: *HR* FentaNYL (PF) 100 MCG/2 ML VIAL ONE (21:41)
[2019-12-17] MEDS ORDERED: *HR* Metoprolol 5 MG/5 ML VIAL IVP ONE (22:07)
[2019-12-17] MEDS ORDERED: Ondansetron 4 MG/2 ML VIAL ONE ×2 (22:30→23:05)
[2019-12-17] MEDS ORDERED: Ondansetron 4 MG/2 ML VIAL IVP ONE (23:07)
[2019-12-17] MEDS: Insulin DETEMIR 100 UNIT/ML X5UNITS SQ SCH (23:41)
[2019-12-18] MEDS: Insulin LISPRO 300 UNITS/3 ML VIAL SQ SCH ×5 (01:19→21:00)
[2019-12-18 01:57] LABS: BUN/Creatinine Ratio 15 (6-26); Blood Urea Nitrogen 13 mg/dL (8-23); Calcium 10.1 mg/dL (8.6-10.3); Carbon Dioxide 25 mEq/L (23-29); Chloride 108 mEq/L (98-107); Glucose 179 mg/dL (70-105); Osmolality,Calculated 291 (280-300); Potassium 4.5 mEq/L (3.5-5.1); Sodium 138 mEq/L (136-145); eGFR For African Americans > 60 (> 60); eGFR For Non-African Americans > 60 (> 60)
[2019-12-18] MEDS ORDERED: Vancomycin 1,500 MG/265 ML IV.SOLN IVPB SCH (08:00)
[2019-12-18] MEDS: Metoprolol XL (24 HR) Succ 25 MG TAB.ER.24H PO SCH (08:43)
[2019-12-18] MEDS: Insulin DETEMIR 100 UNIT/ML X5UNITS SQ SCH ×2 (08:46→21:00)
[2019-12-18] MEDS ORDERED: Bisacodyl 10 MG RECTAL SUPPOSITORY RC PRN (09:00)
[2019-12-18] MEDS ORDERED: lisinopriL 20 MG TABLET PO SCH (09:00)
[2019-12-18] MEDS: *HR* OxyCODONE/APAP 5/325 TABLET PO PRN ×2 (09:02→15:32)
[2019-12-18] MEDS: Venlafaxine XR (24 HR) 150 MG CAP.ER.24H PO SCH (10:00)
[2019-12-18] MEDS: Gabapentin 300 MG CAPSULE PO SCH ×3 (10:00→21:00)
[2019-12-18] MEDS: Vitamin B Complex/Vit C/Vit E 1 EACH TABLET PO SCH (10:00)
[2019-12-18] MEDS: allopurinoL 100 MG TABLET PO SCH (10:01)
[2019-12-18] MEDS: Piperacillin/Tazobactam 3.375 GM in 0.9 % Sodium Chloride Mini Bag 100 ML IVPB SCH ×2 (10:02→16:51)
[2019-12-18] MEDS: Budesonide/Formoterol 80/4.5 1 PUFF INH IH SCH ×2 (10:32→21:09)
[2019-12-18 11:09] LABS: Estimated Average Glucose 117 mg/dl
[2019-12-18] MEDS ORDERED: Ringers Solution, Lactated 1,000 ML IVC SCH (11:30)
[2019-12-18] MEDS: Ascorbic Acid 500 MG TABLET PO SCH (16:51)
[2019-12-18] MEDS ORDERED: Piperacillin/Tazobactam 3.375 GM in 0.9 % Sodium Chloride Mini Bag 100 ML IVPB SCH (17:00)
[2019-12-18] MEDS: Latanoprost 2.5 ML BOTTLE BOTH EYES SCH (21:02)
[2019-12-18] MEDS ORDERED: diazePAM 5 MG TABLET PO ONE (21:55)
[2019-12-18] MEDS: *HR* Heparin 5,000 UNIT/ML VIAL SQ SCH (22:08)
[2019-12-18 23:53] LABS: Bilirubin,Urine Negative (Negative); Blood,Urine Negative (Negative); Clarity,Urine Clear (Clear); Color,Urine Light-Yellow (Yellow); Glucose,Urine (UA) Normal (Normal); Ketones,Urine Negative (Negative); Leukocyte Esterase,Urine Trace (Negative); Nitrite,Urine Negative (Negative); PH,Urine 5.5 pH Units (5.0-8.0); Protein,Urine Negative (Neg-Trace); RBC,Urine 0-3 per hpf (0-3); Specific Gravity,Urine 1.015 (1.010-1.025); Squamous Epithelial Cell,Urine Few per hpf (None-Few); Urobilinogen,Urine Normal (Normal)
[2019-12-19] MEDS: Piperacillin/Tazobactam 3.375 GM in 0.9 % Sodium Chloride Mini Bag 100 ML IVPB SCH ×3 (00:37→16:51)
[2019-12-19] MEDS: *HR* Heparin 5,000 UNIT/ML VIAL SQ SCH ×2 (06:27→16:51)
[2019-12-19 07:22] LABS: Hematocrit 36.6 % (35.3-44.9); Hemoglobin 10.8 g/dL (11.5-15.4); Mean Corpuscular HGB Conc 29.5 g/dL (31.6-35.5); Mean Corpuscular Hemoglobin 29.2 pg (28.0-33.3); Mean Corpuscular Volume 98.9 fL (83.0-100.0); Mean Platelet Volume 10.9 fL (9.4-12.4); Platelet Count 166 K/mcL (140-400); Red Cell Distribution Width 14.6 % (11.5-14.5); White Blood Count 8.5 K/mcL (4.3-11.1)
[2019-12-19 07:41] LABS: BUN/Creatinine Ratio 13 (6-26); Blood Urea Nitrogen 14 mg/dL (8-23); eGFR For African Americans 60 (> 60); eGFR For Non-African Americans 49 (> 60)
[2019-12-19 07:42] LABS: BUN/Creatinine Ratio 13 (6-26); Blood Urea Nitrogen 14 mg/dL (8-23); Calcium 10.4 mg/dL (8.6-10.3); Carbon Dioxide 29 mEq/L (23-29); Chloride 108 mEq/L (98-107); Glucose 155 mg/dL (70-105); Osmolality,Calculated 294 (280-300); Potassium 4.3 mEq/L (3.5-5.1); Sodium 140 mEq/L (136-145); eGFR For African Americans > 60 (> 60); eGFR For Non-African Americans 50 (> 60)
[2019-12-19] MEDS: Insulin LISPRO 300 UNITS/3 ML VIAL SQ SCH ×4 (08:41→21:57)
[2019-12-19] MEDS: Gabapentin 300 MG CAPSULE PO SCH (08:46)
[2019-12-19] MEDS: Budesonide/Formoterol 80/4.5 1 PUFF INH IH SCH ×2 (09:53→20:02)
[2019-12-19 10:04] LABS: ABG Base Excess 3 mEq/L (-2 to 3); ABG HCO3 31 mEq/L (21-27); ABG Oxygen Saturation 91 % (95-98); ABG PCO2 60 mmHg (35-45); ABG PH 7.32 pH Units (7.32-7.45); ABG PO2 67 mmHg (85-104); ABG TCO2 33 mEq/L (20-26)
[2019-12-19] MEDS ORDERED: Naloxone 0.4 MG/ML INJ IVP ONE (10:15)
[2019-12-19] MEDS: Insulin DETEMIR 100 UNIT/ML X5UNITS SQ SCH ×2 (10:35→21:48)
[2019-12-19] MEDS: allopurinoL 100 MG TABLET PO SCH (10:35)
[2019-12-19] MEDS: Ascorbic Acid 500 MG TABLET PO SCH ×2 (10:35→16:51)
[2019-12-19] MEDS: Vitamin B Complex/Vit C/Vit E 1 EACH TABLET PO SCH (10:35)
[2019-12-19] MEDS: Venlafaxine XR (24 HR) 150 MG CAP.ER.24H PO SCH (10:35)
[2019-12-19] MEDS: Metoprolol XL (24 HR) Succ 25 MG TAB.ER.24H PO SCH (10:38)
[2019-12-19] MEDS: Vancomycin 1,250 MG/262.5 ML IV.SOLN IVPB SCH (10:38)
[2019-12-19] MEDS ORDERED: 0.9 % Sodium Chloride 1,000 ML IVC SCH (21:00)
[2019-12-19] MEDS: Latanoprost 2.5 ML BOTTLE BOTH EYES SCH (21:54)
[2019-12-20] MEDS: Piperacillin/Tazobactam 3.375 GM in 0.9 % Sodium Chloride Mini Bag 100 ML IVPB SCH ×4 (01:23→23:29)
[2019-12-20 03:53] LABS: Hematocrit 31.3 % (35.3-44.9); Hemoglobin 9.5 g/dL (11.5-15.4); Mean Corpuscular HGB Conc 30.4 g/dL (31.6-35.5); Mean Corpuscular Hemoglobin 29.8 pg (28.0-33.3); Mean Corpuscular Volume 98.1 fL (83.0-100.0); Mean Platelet Volume 11.4 fL (9.4-12.4); Platelet Count 174 K/mcL (140-400); Red Blood Count 3.19 M/mcL (3.82-4.97); Red Cell Distribution Width 14.2 % (11.5-14.5); White Blood Count 7.9 K/mcL (4.3-11.1)
[2019-12-20 04:04] LABS: BUN/Creatinine Ratio 13 (6-26); Blood Urea Nitrogen 14 mg/dL (8-23); Carbon Dioxide 27 mEq/L (23-29); Chloride 107 mEq/L (98-107); Glucose 223 mg/dL (70-105); Osmolality,Calculated 297 (280-300); Potassium 4.1 mEq/L (3.5-5.1); Sodium 140 mEq/L (136-145); eGFR For African Americans > 60 (> 60); eGFR For Non-African Americans 50 (> 60)
[2019-12-20] MEDS: *HR* Heparin 5,000 UNIT/ML VIAL SQ SCH ×2 (06:03→17:30)
[2019-12-20] MEDS: Budesonide/Formoterol 80/4.5 1 PUFF INH IH SCH ×2 (07:25→19:51)
[2019-12-20] MEDS: Metoprolol XL (24 HR) Succ 25 MG TAB.ER.24H PO SCH (09:10)
[2019-12-20] MEDS: Ascorbic Acid 500 MG TABLET PO SCH ×2 (09:10→17:30)
[2019-12-20] MEDS: Vitamin B Complex/Vit C/Vit E 1 EACH TABLET PO SCH (09:10)
[2019-12-20] MEDS: allopurinoL 100 MG TABLET PO SCH (09:10)
[2019-12-20] MEDS: Insulin DETEMIR 100 UNIT/ML X5UNITS SQ SCH ×2 (09:26→20:53)
[2019-12-20] MEDS: Insulin LISPRO 300 UNITS/3 ML VIAL SQ SCH ×4 (09:28→20:48)
[2019-12-20] MEDS: Vancomycin 1,250 MG/262.5 ML IV.SOLN IVPB SCH (09:29)
[2019-12-20] MEDS: Venlafaxine XR (24 HR) 150 MG CAP.ER.24H PO SCH (13:12)
[2019-12-20] MEDS: Gabapentin 300 MG CAPSULE PO SCH ×2 (17:21→20:53)
[2019-12-20] MEDS: Latanoprost 2.5 ML BOTTLE BOTH EYES SCH (20:53)
[2019-12-21] MEDS: *HR* Heparin 5,000 UNIT/ML VIAL SQ SCH ×2 (05:08→16:56)
[2019-12-21] MEDS: Budesonide/Formoterol 80/4.5 1 PUFF INH IH SCH ×2 (07:27→20:55)
[2019-12-21] MEDS: Gabapentin 300 MG CAPSULE PO SCH ×3 (09:20→20:19)
[2019-12-21] MEDS: Vitamin B Complex/Vit C/Vit E 1 EACH TABLET PO SCH (09:20)
[2019-12-21] MEDS: Venlafaxine XR (24 HR) 150 MG CAP.ER.24H PO SCH (09:20)
[2019-12-21] MEDS: allopurinoL 100 MG TABLET PO SCH (09:20)
[2019-12-21] MEDS: Metoprolol XL (24 HR) Succ 25 MG TAB.ER.24H PO SCH (09:20)
[2019-12-21] MEDS: Ascorbic Acid 500 MG TABLET PO SCH ×2 (09:20→16:55)
[2019-12-21] MEDS: Insulin LISPRO 300 UNITS/3 ML VIAL SQ SCH ×4 (09:21→20:22)
[2019-12-21] MEDS: Piperacillin/Tazobactam 3.375 GM in 0.9 % Sodium Chloride Mini Bag 100 ML IVPB SCH (09:21)
[2019-12-21] MEDS: Insulin DETEMIR 100 UNIT/ML X5UNITS SQ SCH ×2 (09:25→20:31)
[2019-12-21] MEDS: cefTRIAXone 2,000 MG in Water for inj. (sterile) 20 ML IVP SCH (14:24)
[2019-12-21] MEDS: Latanoprost 2.5 ML BOTTLE BOTH EYES SCH (20:19)
[2019-12-22] MEDS: *HR* Heparin 5,000 UNIT/ML VIAL SQ SCH ×2 (05:28→17:41)
[2019-12-22] MEDS ORDERED: Furosemide 20 MG TABLET PO PRN (08:22)
[2019-12-22] MEDS: Metoprolol XL (24 HR) Succ 25 MG TAB.ER.24H PO SCH (08:58)
[2019-12-22] MEDS: Gabapentin 300 MG CAPSULE PO SCH ×3 (08:59→21:59)
[2019-12-22] MEDS: Venlafaxine XR (24 HR) 150 MG CAP.ER.24H PO SCH (08:59)
[2019-12-22] MEDS: Vitamin B Complex/Vit C/Vit E 1 EACH TABLET PO SCH (08:59)
[2019-12-22] MEDS: allopurinoL 100 MG TABLET PO SCH (08:59)
[2019-12-22] MEDS: Ascorbic Acid 500 MG TABLET PO SCH ×2 (08:59→15:33)
[2019-12-22] MEDS: lisinopriL 20 MG TABLET PO SCH (09:00)
[2019-12-22] MEDS: Insulin DETEMIR 100 UNIT/ML X5UNITS SQ SCH ×2 (09:03→21:59)
[2019-12-22] MEDS: Insulin LISPRO 300 UNITS/3 ML VIAL SQ SCH ×4 (09:04→21:58)
[2019-12-22] MEDS: Budesonide/Formoterol 80/4.5 1 PUFF INH IH SCH ×2 (10:16→20:10)
[2019-12-22] MEDS: cefTRIAXone 2,000 MG in Water for inj. (sterile) 20 ML IVP SCH (13:21)
[2019-12-22] MEDS: polyethylene glycoL 3350 17 GM POWD.PACK PO PRN (15:33)
[2019-12-22] MEDS: Latanoprost 2.5 ML BOTTLE BOTH EYES SCH (21:59)
[2019-12-23] MEDS: *HR* OxyCODONE/APAP 5/325 TABLET PO PRN (02:22)
[2019-12-23] MEDS: *HR* Heparin 5,000 UNIT/ML VIAL SQ SCH ×2 (05:07→17:01)
[2019-12-23 06:39] LABS: Basophils % 0.3 %; Eosinophils # 0.5 K/mcL (0.0-0.6); Eosinophils % 6.3 %; Hemoglobin 9.4 g/dL (11.5-15.4); Immature Granulocytes % 0.5 % (0-4); Lymphocytes # 2.4 K/mcL (0.6-4.6); Lymphocytes % 31.4 %; Mean Corpuscular HGB Conc 30.3 g/dL (31.6-35.5); Mean Corpuscular Hemoglobin 29.4 pg (28.0-33.3); Mean Corpuscular Volume 96.9 fL (83.0-100.0); Monocytes # 0.6 K/mcL (0.0-1.3); Monocytes % 7.2 %; Neutrophils # 4.2 K/mcL (1.6-8.9); Platelet Count 203 K/mcL (140-400); Segmented Neutrophils % 54.3 %; White Blood Count 7.8 K/mcL (4.3-11.1)
[2019-12-23 07:01] LABS: Calcium 10.6 mg/dL (8.6-10.3); Magnesium 1.6 mg/dL (1.6-2.6); Potassium 3.8 mEq/L (3.5-5.1)
[2019-12-23] MEDS ORDERED: 0.9 % Sodium Chloride 1,000 ML IVC SCH (07:45)
[2019-12-23] MEDS: Budesonide/Formoterol 80/4.5 1 PUFF INH IH SCH ×2 (07:58→20:12)
[2019-12-23] MEDS: Vitamin B Complex/Vit C/Vit E 1 EACH TABLET PO SCH (09:04)
[2019-12-23] MEDS: polyethylene glycoL 3350 17 GM POWD.PACK PO PRN (09:04)
[2019-12-23] MEDS: allopurinoL 100 MG TABLET PO SCH (09:05)
[2019-12-23] MEDS: Metoprolol XL (24 HR) Succ 25 MG TAB.ER.24H PO SCH (09:05)
[2019-12-23] MEDS: Insulin LISPRO 300 UNITS/3 ML VIAL SQ SCH ×4 (09:06→21:02)
[2019-12-23] MEDS: Ascorbic Acid 500 MG TABLET PO SCH ×2 (09:07→17:01)
[2019-12-23] MEDS: lisinopriL 20 MG TABLET PO SCH (09:07)
[2019-12-23] MEDS: Gabapentin 300 MG CAPSULE PO SCH ×3 (09:07→21:02)
[2019-12-23] MEDS: Insulin DETEMIR 100 UNIT/ML X5UNITS SQ SCH ×2 (09:18→21:04)
[2019-12-23] MEDS: Venlafaxine XR (24 HR) 150 MG CAP.ER.24H PO SCH (09:19)
[2019-12-23] MEDS: cefTRIAXone 2,000 MG in Water for inj. (sterile) 20 ML IVP SCH (13:45)
[2019-12-23] MEDS: Ipratropium/Albuterol Neb 3 ML IH SCH ×3 (15:50→23:19)
[2019-12-23] MEDS: Latanoprost 2.5 ML BOTTLE BOTH EYES SCH (21:03)
[2019-12-24] MEDS: Ipratropium/Albuterol Neb 3 ML IH SCH ×6 (03:44→23:45)
[2019-12-24] MEDS: *HR* Heparin 5,000 UNIT/ML VIAL SQ SCH ×2 (04:40→17:46)
[2019-12-24] MEDS: Budesonide/Formoterol 80/4.5 1 PUFF INH IH SCH ×2 (07:39→20:15)
[2019-12-24] MEDS: Insulin LISPRO 300 UNITS/3 ML VIAL SQ SCH ×4 (09:00→21:35)
[2019-12-24] MEDS: Insulin DETEMIR 100 UNIT/ML X5UNITS SQ SCH ×2 (10:12→22:05)
[2019-12-24] MEDS: Metoprolol XL (24 HR) Succ 50 MG TAB.ER.24H PO SCH (10:23)
[2019-12-24] MEDS: lisinopriL 20 MG TABLET PO SCH (10:23)
[2019-12-24] MEDS: allopurinoL 100 MG TABLET PO SCH (10:25)
[2019-12-24] MEDS: Vitamin B Complex/Vit C/Vit E 1 EACH TABLET PO SCH (10:26)
[2019-12-24] MEDS: Gabapentin 300 MG CAPSULE PO SCH ×3 (10:26→22:05)
[2019-12-24] MEDS: Venlafaxine XR (24 HR) 150 MG CAP.ER.24H PO SCH (10:26)
[2019-12-24] MEDS: Ascorbic Acid 500 MG TABLET PO SCH ×2 (10:26→17:48)
[2019-12-24 10:33] LABS: VBG HCO3 31 mEq/L (21-27); VBG PCO2 61 mmHg (41-51); VBG PH 7.32 pH Units (7.32-7.42); VBG PO2 92 mmHg (25-50)
[2019-12-24] MEDS: cefTRIAXone 2,000 MG in Water for inj. (sterile) 20 ML IVP SCH (14:20)
[2019-12-24] MEDS: Furosemide 20 MG TABLET PO SCH (14:25)
[2019-12-24] MEDS: Latanoprost 2.5 ML BOTTLE BOTH EYES SCH (22:06)
[2019-12-25] MEDS: *HR* OxyCODONE/APAP 5/325 TABLET PO PRN (03:36)
[2019-12-25] MEDS: Ipratropium/Albuterol Neb 3 ML IH SCH ×6 (03:54→23:29)
[2019-12-25] MEDS: *HR* Heparin 5,000 UNIT/ML VIAL SQ SCH ×2 (05:56→17:26)
[2019-12-25] MEDS: Budesonide/Formoterol 80/4.5 1 PUFF INH IH SCH ×2 (07:29→19:46)
[2019-12-25] MEDS: Furosemide 20 MG TABLET PO SCH (09:37)
[2019-12-25] MEDS: Insulin DETEMIR 100 UNIT/ML X5UNITS SQ SCH ×2 (09:43→21:20)
[2019-12-25] MEDS: Vitamin B Complex/Vit C/Vit E 1 EACH TABLET PO SCH (09:43)
[2019-12-25] MEDS: Ascorbic Acid 500 MG TABLET PO SCH ×2 (09:43→17:27)
[2019-12-25] MEDS: allopurinoL 100 MG TABLET PO SCH (09:43)
[2019-12-25] MEDS: Gabapentin 300 MG CAPSULE PO SCH ×3 (09:43→21:20)
[2019-12-25] MEDS: Venlafaxine XR (24 HR) 150 MG CAP.ER.24H PO SCH (09:43)
[2019-12-25] MEDS: Metoprolol XL (24 HR) Succ 50 MG TAB.ER.24H PO SCH (09:44)
[2019-12-25] MEDS: cefTRIAXone 2,000 MG in Water for inj. (sterile) 20 ML IVP SCH (13:51)
[2019-12-25] MEDS: Insulin LISPRO 300 UNITS/3 ML VIAL SQ SCH ×3 (13:52→21:18)
[2019-12-25] MEDS: Latanoprost 2.5 ML BOTTLE BOTH EYES SCH (21:20)
[2019-12-26] MEDS ORDERED: Melatonin 3 MG TABLET PO ONE (03:25)
[2019-12-26] MEDS: Ipratropium/Albuterol Neb 3 ML IH SCH ×6 (03:54→23:49)
[2019-12-26] MEDS: *HR* Heparin 5,000 UNIT/ML VIAL SQ SCH ×2 (04:43→17:09)
[2019-12-26] MEDS: Budesonide/Formoterol 80/4.5 1 PUFF INH IH SCH ×2 (07:45→20:00)
[2019-12-26 07:49] LABS: Basophils % 0.4 %; Hemoglobin 8.4 g/dL (11.5-15.4); Immature Granulocytes % 0.7 % (0-4); Mean Platelet Volume 10.8 fL (9.4-12.4)
[2019-12-26 07:51] LABS: Eosinophils # 0.5 K/mcL (0.0-0.6); Eosinophils % 6.6 %; Hematocrit 28.4 % (35.3-44.9); Lymphocytes % 29.4 %; Mean Corpuscular HGB Conc 29.6 g/dL (31.6-35.5); Mean Corpuscular Hemoglobin 29.9 pg (28.0-33.3); Mean Corpuscular Volume 101.1 fL (83.0-100.0); Monocytes # 0.5 K/mcL (0.0-1.3); Monocytes % 7.3 %; Neutrophils # 4.1 K/mcL (1.6-8.9); Platelet Count 203 K/mcL (140-400); Red Blood Count 2.81 M/mcL (3.82-4.97); Red Cell Distribution Width 14.2 % (11.5-14.5); Segmented Neutrophils % 55.6 %; White Blood Count 7.3 K/mcL (4.3-11.1)
[2019-12-26 07:56] LABS: Lymphocytes # 2.2 K/mcL (0.6-4.6)
[2019-12-26 08:05] LABS: BUN/Creatinine Ratio 17 (6-26); Blood Urea Nitrogen 16 mg/dL (8-23); Calcium 10.5 mg/dL (8.6-10.3); Carbon Dioxide 30 mEq/L (23-29); Chloride 106 mEq/L (98-107); Glucose 195 mg/dL (70-105); Magnesium 1.6 mg/dL (1.6-2.6); Osmolality,Calculated 297 (280-300); Potassium 3.9 mEq/L (3.5-5.1); Sodium 140 mEq/L (136-145); eGFR For African Americans > 60 (> 60); eGFR For Non-African Americans 60 (> 60)
[2019-12-26] MEDS: Venlafaxine XR (24 HR) 150 MG CAP.ER.24H PO SCH (08:28)
[2019-12-26] MEDS: Vitamin B Complex/Vit C/Vit E 1 EACH TABLET PO SCH (08:29)
[2019-12-26] MEDS: Gabapentin 300 MG CAPSULE PO SCH ×3 (08:29→21:04)
[2019-12-26] MEDS: Metoprolol XL (24 HR) Succ 50 MG TAB.ER.24H PO SCH (08:29)
[2019-12-26] MEDS: Ascorbic Acid 500 MG TABLET PO SCH ×2 (08:30→17:08)
[2019-12-26] MEDS: Furosemide 20 MG TABLET PO SCH (08:30)
[2019-12-26] MEDS: Insulin DETEMIR 100 UNIT/ML X5UNITS SQ SCH ×2 (08:30→21:04)
[2019-12-26] MEDS: Insulin LISPRO 300 UNITS/3 ML VIAL SQ SCH ×4 (08:30→21:04)
[2019-12-26] MEDS: allopurinoL 100 MG TABLET PO SCH (08:30)
[2019-12-26 08:56] LABS: Anisocytosis 1+ (Not Present); Platelet Estimate Normal (Normal)
[2019-12-26] MEDS: cefTRIAXone 2,000 MG in Water for inj. (sterile) 20 ML IVP SCH (13:21)
[2019-12-26] MEDS: Latanoprost 2.5 ML BOTTLE BOTH EYES SCH (21:04)
[2019-12-27] MEDS: Ipratropium/Albuterol Neb 3 ML IH SCH ×6 (03:59→23:38)
[2019-12-27] MEDS: *HR* Heparin 5,000 UNIT/ML VIAL SQ SCH ×2 (06:34→16:53)
[2019-12-27] MEDS: Budesonide/Formoterol 80/4.5 1 PUFF INH IH SCH ×2 (07:52→20:06)
[2019-12-27] MEDS ORDERED: Cyanocobalamin (B-12) 1,000 MCG/ML VIAL IM SCH (09:00)
[2019-12-27] MEDS: Insulin LISPRO 300 UNITS/3 ML VIAL SQ SCH ×4 (10:05→21:10)
[2019-12-27] MEDS: Insulin DETEMIR 100 UNIT/ML X5UNITS SQ SCH ×2 (10:26→21:20)
[2019-12-27] MEDS: Ascorbic Acid 500 MG TABLET PO SCH ×2 (10:27→16:54)
[2019-12-27] MEDS: allopurinoL 100 MG TABLET PO SCH (10:27)
[2019-12-27] MEDS: Gabapentin 300 MG CAPSULE PO SCH ×3 (10:27→21:20)
[2019-12-27] MEDS: Vitamin B Complex/Vit C/Vit E 1 EACH TABLET PO SCH (10:27)
[2019-12-27] MEDS: Venlafaxine XR (24 HR) 150 MG CAP.ER.24H PO SCH (10:27)
[2019-12-27] MEDS: lisinopriL 20 MG TABLET PO SCH (10:27)
[2019-12-27] MEDS: Metoprolol XL (24 HR) Succ 50 MG TAB.ER.24H PO SCH (10:27)
[2019-12-27] MEDS: Furosemide 20 MG TABLET PO SCH (10:28)
[2019-12-27] MEDS: cefTRIAXone 2,000 MG in Water for inj. (sterile) 20 ML IVP SCH (14:15)
[2019-12-27] MEDS: Latanoprost 2.5 ML BOTTLE BOTH EYES SCH (21:20)
[2019-12-28] MEDS ORDERED: Prochlorperazine 10 MG/2 ML VIAL IVP PRN (03:13)
[2019-12-28] MEDS: Ipratropium/Albuterol Neb 3 ML IH SCH ×5 (03:40→20:13)
[2019-12-28 05:51] LABS: BUN/Creatinine Ratio 17 (6-26); Blood Urea Nitrogen 16 mg/dL (8-23); Carbon Dioxide 29 mEq/L (23-29); Chloride 108 mEq/L (98-107); Glucose 162 mg/dL (70-105); Osmolality,Calculated 299 (280-300); Potassium 3.7 mEq/L (3.5-5.1); Sodium 142 mEq/L (136-145); eGFR For African Americans > 60 (> 60); eGFR For Non-African Americans 60 (> 60)
[2019-12-28 05:58] LABS: Hematocrit 30.9 % (35.3-44.9); Hemoglobin 9.1 g/dL (11.5-15.4); Mean Corpuscular HGB Conc 29.4 g/dL (31.6-35.5); Mean Corpuscular Hemoglobin 29.2 pg (28.0-33.3); Mean Platelet Volume 11.3 fL (9.4-12.4); Platelet Count 201 K/mcL (140-400); Red Blood Count 3.12 M/mcL (3.82-4.97); Red Cell Distribution Width 14.6 % (11.5-14.5); White Blood Count 7.7 K/mcL (4.3-11.1)
[2019-12-28] MEDS: *HR* Heparin 5,000 UNIT/ML VIAL SQ SCH ×2 (06:08→17:21)
[2019-12-28] MEDS: Budesonide/Formoterol 80/4.5 1 PUFF INH IH SCH ×2 (07:28→20:14)
[2019-12-28] MEDS ORDERED: Ondansetron ODT 4 MG TAB.RAPDIS PO PRN (08:04)
[2019-12-28] MEDS: Insulin LISPRO 300 UNITS/3 ML VIAL SQ SCH ×4 (08:28→20:57)
[2019-12-28] MEDS ORDERED: Isovue-370 500 ML BOTTLE IVP ONE (09:40)
[2019-12-28] MEDS: *HR* Promethazine 25 MG/ML VIAL IVP PRN ×2 (09:48→19:57)
[2019-12-28] MEDS: Metoprolol XL (24 HR) Succ 50 MG TAB.ER.24H PO SCH (09:53)
[2019-12-28] MEDS: Venlafaxine XR (24 HR) 150 MG CAP.ER.24H PO SCH (09:53)
[2019-12-28] MEDS: Ascorbic Acid 500 MG TABLET PO SCH ×2 (09:53→17:21)
[2019-12-28] MEDS: allopurinoL 100 MG TABLET PO SCH (09:53)
[2019-12-28] MEDS: Vitamin B Complex/Vit C/Vit E 1 EACH TABLET PO SCH (09:53)
[2019-12-28] MEDS: Gabapentin 300 MG CAPSULE PO SCH ×3 (09:53→21:00)
[2019-12-28] MEDS: Furosemide 20 MG TABLET PO SCH (09:53)
[2019-12-28] MEDS: Insulin DETEMIR 100 UNIT/ML X5UNITS SQ SCH ×2 (09:57→21:00)
[2019-12-28] MEDS ORDERED: Ondansetron 4 MG/2 ML VIAL IVP PRN (13:22)
[2019-12-28 14:43] LABS: Alanine Aminotransferase 14 Units/L (7-52); Albumin 2.9 g/dL (3.5-5.7); Albumin/Globulin Ratio 1.2 (1.1-2.2); Alkaline Phosphatase 65 Units/L (34-104); Aspartate Amino Transferase 22 Units/L (13-39); Bilirubin,Direct 0.1 mg/dL (0.0-0.2); Bilirubin,Indirect 0.1 mg/dL (0.0-1.0); Bilirubin,Total 0.2 mg/dL (0.3-1.0); Globulin 2.4 g/dL (2.4-3.5); Total Protein 5.3 g/dL (6.4-8.9)
[2019-12-28] MEDS: cefTRIAXone 2,000 MG in Water for inj. (sterile) 20 ML IVP SCH (14:55)
[2019-12-28] MEDS: Latanoprost 2.5 ML BOTTLE BOTH EYES SCH (21:00)
[2019-12-28] MEDS: *HR* OxyCODONE/APAP 5/325 TABLET PO PRN (23:06)
[2019-12-29] MEDS: Ipratropium/Albuterol Neb 3 ML IH SCH ×7 (00:24→23:42)
[2019-12-29] MEDS: *HR* Heparin 5,000 UNIT/ML VIAL SQ SCH ×2 (05:22→16:43)
[2019-12-29 06:59] LABS: Basophils # 0.1 K/mcL (0.0-0.2); Basophils % 0.5 %; Eosinophils # 0.4 K/mcL (0.0-0.6); Eosinophils % 3.8 %; Hematocrit 34.7 % (35.3-44.9); Hemoglobin 10.2 g/dL (11.5-15.4); Immature Granulocytes % 0.7 % (0-4); Lymphocytes # 2.2 K/mcL (0.6-4.6); Mean Corpuscular HGB Conc 29.4 g/dL (31.6-35.5); Mean Corpuscular Hemoglobin 29.2 pg (28.0-33.3); Mean Corpuscular Volume 99.4 fL (83.0-100.0); Mean Platelet Volume 11.7 fL (9.4-12.4); Monocytes # 0.7 K/mcL (0.0-1.3); Monocytes % 7.2 %; Neutrophils # 6.9 K/mcL (1.6-8.9); Platelet Count 217 K/mcL (140-400); Red Blood Count 3.49 M/mcL (3.82-4.97); Red Cell Distribution Width 14.7 % (11.5-14.5); Segmented Neutrophils % 66.8 %; White Blood Count 10.3 K/mcL (4.3-11.1)
[2019-12-29 07:21] LABS: BUN/Creatinine Ratio 16 (6-26); Blood Urea Nitrogen 17 mg/dL (8-23); Calcium 11.2 mg/dL (8.6-10.3); Carbon Dioxide 32 mEq/L (23-29); Chloride 105 mEq/L (98-107); Glucose 133 mg/dL (70-105); Magnesium 1.7 mg/dL (1.6-2.6); Osmolality,Calculated 299 (280-300); Potassium 3.9 mEq/L (3.5-5.1); Sodium 143 mEq/L (136-145); eGFR For African Americans > 60 (> 60); eGFR For Non-African Americans 52 (> 60)
[2019-12-29] MEDS: Budesonide/Formoterol 80/4.5 1 PUFF INH IH SCH ×2 (07:51→20:18)
[2019-12-29] MEDS: allopurinoL 100 MG TABLET PO SCH (09:20)
[2019-12-29] MEDS: lisinopriL 20 MG TABLET PO SCH (09:20)
[2019-12-29] MEDS: Gabapentin 300 MG CAPSULE PO SCH ×4 (09:20→20:09)
[2019-12-29] MEDS: Furosemide 20 MG TABLET PO SCH (09:20)
[2019-12-29] MEDS: Vitamin B Complex/Vit C/Vit E 1 EACH TABLET PO SCH (09:20)
[2019-12-29] MEDS: Venlafaxine XR (24 HR) 150 MG CAP.ER.24H PO SCH (09:20)
[2019-12-29] MEDS: Insulin LISPRO 300 UNITS/3 ML VIAL SQ SCH ×4 (09:21→21:31)
[2019-12-29] MEDS: Metoprolol XL (24 HR) Succ 50 MG TAB.ER.24H PO SCH (09:21)
[2019-12-29] MEDS: Ascorbic Acid 500 MG TABLET PO SCH ×2 (09:21→16:43)
[2019-12-29] MEDS: Insulin DETEMIR 100 UNIT/ML X5UNITS SQ SCH ×2 (09:40→21:31)
[2019-12-29 09:50] LABS: ABG Base Excess 5 mEq/L (-2 to 3); ABG HCO3 32 mEq/L (21-27); ABG Oxygen Saturation 90 % (95-98); ABG PCO2 57 mmHg (35-45); ABG PH 7.36 pH Units (7.32-7.45); ABG PO2 62 mmHg (85-104); ABG TCO2 34 mEq/L (20-26)
[2019-12-29] MEDS: cefTRIAXone 2,000 MG in Water for inj. (sterile) 20 ML IVP SCH (14:24)
[2019-12-29] MEDS: metroNIDAZOLE 500 MG TABLET PO SCH (20:09)
[2019-12-29] MEDS: Latanoprost 2.5 ML BOTTLE BOTH EYES SCH (20:10)
[2019-12-29 23:06] LABS: Bilirubin,Urine Negative (Negative); Blood,Urine Negative (Negative); Clarity,Urine Clear (Clear); Color,Urine Yellow (Yellow); Glucose,Urine (UA) Normal (Normal); Ketones,Urine Negative (Negative); Leukocyte Esterase,Urine Negative (Negative); Nitrite,Urine Negative (Negative); PH,Urine 5.5 pH Units (5.0-8.0); Protein,Urine Trace mg/dL (Neg-Trace); Specific Gravity,Urine > 1.030 (1.010-1.025); Urobilinogen,Urine Normal (Normal)
[2019-12-30 02:58] LABS: Basophils % 0.3 %; Eosinophils # 0.5 K/mcL (0.0-0.6); Eosinophils % 4.9 %; Hematocrit 33.5 % (35.3-44.9); Hemoglobin 9.9 g/dL (11.5-15.4); Immature Granulocytes % 0.7 % (0-4); Lymphocytes % 18.8 %; Mean Corpuscular HGB Conc 29.6 g/dL (31.6-35.5); Mean Corpuscular Hemoglobin 29.1 pg (28.0-33.3); Mean Corpuscular Volume 98.5 fL (83.0-100.0); Monocytes # 0.7 K/mcL (0.0-1.3); Monocytes % 6.7 %; Neutrophils # 7.1 K/mcL (1.6-8.9); Platelet Count 241 K/mcL (140-400); Red Cell Distribution Width 14.8 % (11.5-14.5); Segmented Neutrophils % 68.6 %; White Blood Count 10.4 K/mcL (4.3-11.1)
[2019-12-30] MEDS: Ipratropium/Albuterol Neb 3 ML IH SCH ×3 (03:07→11:10)
[2019-12-30 03:09] LABS: BUN/Creatinine Ratio 17 (6-26); Blood Urea Nitrogen 18 mg/dL (8-23); Calcium 10.5 mg/dL (8.6-10.3); Carbon Dioxide 29 mEq/L (23-29); Chloride 102 mEq/L (98-107); Glucose 222 mg/dL (70-105); Magnesium 1.5 mg/dL (1.6-2.6); Osmolality,Calculated 295 (280-300); Phosphorous 3.2 mg/dL (2.7-4.5); Potassium 3.6 mEq/L (3.5-5.1); Sodium 138 mEq/L (136-145); eGFR For African Americans > 60 (> 60); eGFR For Non-African Americans 53 (> 60)
[2019-12-30] MEDS: *HR* Heparin 5,000 UNIT/ML VIAL SQ SCH (05:11)
[2019-12-30] MEDS ORDERED: Magnesium Sulfate 1 GM/102 ML PIGGYBACK IVPB ONE (07:43)
[2019-12-30] MEDS: Budesonide/Formoterol 80/4.5 1 PUFF INH IH SCH (08:06)
[2019-12-30] MEDS: Insulin LISPRO 300 UNITS/3 ML VIAL SQ SCH ×2 (10:15→13:44)
[2019-12-30] MEDS: Insulin DETEMIR 100 UNIT/ML X5UNITS SQ SCH (10:23)
[2019-12-30] MEDS: allopurinoL 100 MG TABLET PO SCH (10:24)
[2019-12-30] MEDS: Venlafaxine XR (24 HR) 150 MG CAP.ER.24H PO SCH (10:24)
[2019-12-30] MEDS: Ascorbic Acid 500 MG TABLET PO SCH (10:24)
[2019-12-30] MEDS: Vitamin B Complex/Vit C/Vit E 1 EACH TABLET PO SCH (10:24)
[2019-12-30] MEDS: Gabapentin 300 MG CAPSULE PO SCH (10:24)
[2019-12-30] MEDS: Metoprolol XL (24 HR) Succ 50 MG TAB.ER.24H PO SCH (10:25)
[2019-12-30] MEDS: metroNIDAZOLE 500 MG TABLET PO SCH (10:25)
[2019-12-30 11:02] VITALS: BP 102/65
[2019-12-30] MEDS: cefTRIAXone 2,000 MG in Water for inj. (sterile) 20 ML IVP SCH (13:37)
== END 2019-12-30 13:50 | DRG 907 ==
LOC: 3NENU → SUATTDRO 16:05 → 3NENU 12-19 15:52
PROVIDERS: ADMIT Internal Medicine; ATTEND Internal Medicine

== ENCOUNTER 2020-11-30 15:41 | Inpatient (IN) ==
[2020-11-30] MEDS ORDERED: Naloxone 0.4 MG/ML INJ IVP PRN (18:33)
[2020-11-30] MEDS ORDERED: *HR* Heparin 5,000 UNIT/ML VIAL IVP ONE (22:20)
[2020-11-30] MEDS ORDERED: *HR* Heparin 5,000 UNIT/ML VIAL IVP PRN ×2 (22:20)
[2020-11-30] MEDS ORDERED: Dextrose Gel 15 GM/37.5 ML TUBE PO PRN ×2 (22:22)
[2020-11-30] MEDS ORDERED: D5% in Water 1,000 ML IVC PRN (22:22)
[2020-11-30] MEDS ORDERED: Perflutren Lipid Microsphere 1.3 ML in 0.9 % Sodium Chloride 8.7 ML IVP PRN (22:22)
[2020-11-30] MEDS ORDERED: Ipratropium/Albuterol Neb 3 ML IH PRN (22:26)
[2020-11-30] MEDS ORDERED: Insulin DETEMIR 100 UNIT/ML X5UNITS SUBQ SCH (22:30)
[2020-11-30] MEDS ORDERED: DilTIAZem 50 MG/50 ML IV.SOLN IVC SCH (22:30)
[2020-11-30] MEDS: Heparin 25,000UNIT/250ML 1/2NS 25,000 UNIT/250 ML IV.SOLN IVC SCH (23:07)
[2020-11-30] MEDS: Calcium Gluconate 1gm/50mL 1 GM/50 ML BAG IVPB SCH (23:09)
[2020-11-30 23:11] LABS: Estimated Average Glucose 163 mg/dl; Hemoglobin A1C 7.3 %
[2020-12-01 01:24] LABS: Basophils % 0.3 %; Eosinophils # 0.1 K/mcL (0.0-0.6); Hemoglobin 11.6 g/dL (11.5-15.4); Immature Granulocytes % 0.3 % (0-4); Lymphocytes # 2.1 K/mcL (0.6-4.6); Lymphocytes % 21.4 %; Mean Corpuscular Hemoglobin 27.9 pg (28.0-33.3); Mean Corpuscular Volume 96.2 fL (83.0-100.0); Mean Platelet Volume 11.3 fL (9.4-12.4); Monocytes # 0.8 K/mcL (0.0-1.3); Monocytes % 7.9 %; Neutrophils # 6.7 K/mcL (1.6-8.9); Nucleated Red Blood Cells 0.3 /100 WBC (0); Platelet Count 194 K/mcL (140-400); Red Blood Count 4.16 M/mcL (3.82-4.97); Red Cell Distribution Width 14.9 % (11.5-14.5); Segmented Neutrophils % 69.1 %; White Blood Count 9.7 K/mcL (4.3-11.1)
[2020-12-01] MEDS: Calcium Gluconate 1gm/50mL 1 GM/50 ML BAG IVPB SCH (01:24)
[2020-12-01 01:30] LABS: VBG Base Excess 5 mEq/L; VBG Chloride 99 mEq/L (98-107); VBG Glucose 117 mg/dl (65-95); VBG HCO3 32 mEq/L (21-27); VBG Oxygen Saturation 100 %; VBG PCO2 50 mmHg (41-51); VBG PH 7.41 pH Units (7.32-7.42); VBG PO2 207 mmHg (25-50); VBG Total CO2 33 mEq/L
[2020-12-01 01:36] LABS: INR 1.2; Prothrombin Time 14.1 Seconds (9.4-12.1)
[2020-12-01 01:42] LABS: Calcium 10.3 mg/dL (8.6-10.3); Potassium 4.8 mEq/L (3.5-5.1)
[2020-12-01 01:47] LABS: Activated Partial Thrombo Time 21.5 Seconds (26.0-36.0)
[2020-12-01] MEDS ORDERED: Albumin 25% 25gram/100mL 25 GM/100 ML IV.SOLN IVPB ONE (02:29)
[2020-12-01] MEDS ORDERED: Furosemide 40 MG/4 ML VIAL IVP ONE (02:29)
[2020-12-01] MEDS ORDERED: 0.9 % Sodium Chloride 250 ML ONE (03:56)
[2020-12-01] MEDS: *HR* Dextrose 50 % in Water (Vial) 50 ML VIAL IVP PRN ×3 (04:17→11:30)
[2020-12-01 04:26] LABS: Adenovirus Not Detected (Not Detect); Bordetella Pertussis Not Detected (Not Detect); Chlamydophila pneumoniae Not Detected (Not Detect); Coronavirus 229E Not Detected (Not Detect); Coronavirus HKU1 Not Detected (Not Detect); Coronavirus NL63 Not Detected (Not Detect); Coronavirus OC43 Not Detected (Not Detect); Human Metapneumovirus Not Detected (Not Detect); Human Rhinovirus/Enterovirus Not Detected (Not Detect); Influenza A Subtype 2009 H1 Not Detected (Not Detect); Influenza B Not Detected (Not Detect); Mycoplasma pneumoniae Not Detected (Not Detect); Parainfluenza Virus 1 Not Detected (Not Detect); Parainfluenza Virus 2 Not Detected (Not Detect); Parainfluenza Virus 3 Not Detected (Not Detect); Parainfluenza Virus 4 Not Detected (Not Detect); Respiratory Syncytial Virus Not Detected (Not Detect); SARS-CoV-2 Not Detected (Not Detect)
[2020-12-01] MEDS ORDERED: 0.9 % Sodium Chloride 1,000 ML ONE (05:12)
[2020-12-01] MEDS ORDERED: Perflutren Lipid Microsphere 1.3 ML in 0.9 % Sodium Chloride 8.7 ML IVP PRN (08:50)
[2020-12-01] MEDS ORDERED: cefTRIAXone 1,000 MG in Water for inj. (sterile) 10 ML IVP SCH (09:00)
[2020-12-01] MEDS ORDERED: Norepinephrine 4 MG/254 ML IV.SOLN IVC SCH (09:30)
[2020-12-01] MEDS: Insulin LISPRO 300 UNITS/3 ML VIAL SUBQ SCH ×2 (09:36→11:17)
[2020-12-01] MEDS: Heparin 25,000UNIT/250ML 1/2NS 25,000 UNIT/250 ML IV.SOLN IVC SCH (09:55)
[2020-12-01 10:30] LABS: Immature Granulocytes % 0.3 % (0-4); Mean Platelet Volume 11.4 fL (9.4-12.4); Platelet Count 195 K/mcL (140-400)
[2020-12-01 10:31] LABS: Basophils % 0.2 %; Eosinophils # 0.2 K/mcL (0.0-0.6); Eosinophils % 2.1 %; Hematocrit 38.5 % (35.3-44.9); Hemoglobin 11.5 g/dL (11.5-15.4); Lymphocytes # 2.5 K/mcL (0.6-4.6); Lymphocytes % 24.3 %; Mean Corpuscular HGB Conc 29.9 g/dL (31.6-35.5); Mean Corpuscular Hemoglobin 28.3 pg (28.0-33.3); Mean Corpuscular Volume 94.8 fL (83.0-100.0); Monocytes # 0.8 K/mcL (0.0-1.3); Monocytes % 7.6 %; Neutrophils # 6.6 K/mcL (1.6-8.9); Red Blood Count 4.06 M/mcL (3.82-4.97); Segmented Neutrophils % 65.5 %; White Blood Count 10.1 K/mcL (4.3-11.1)
[2020-12-01 10:36] LABS: VBG Ionized Calcium 1.41 mmol/L (1.15-1.35)
[2020-12-01 10:57] LABS: Albumin 2.9 g/dL (3.5-5.7); Bilirubin,Direct 0.1 mg/dL (0.0-0.2); Bilirubin,Indirect 0.2 mg/dL (0.0-1.0); Bilirubin,Total 0.3 mg/dL (0.3-1.0); Calcium 10.3 mg/dL (8.6-10.3); Globulin 2.9 g/dL (2.4-3.5); Magnesium 1.8 mg/dL (1.6-2.6); Phosphorous 4.5 mg/dL (2.7-4.5); Potassium 4.3 mEq/L (3.5-5.1); Total Protein 5.8 g/dL (6.4-8.9); Troponin I 0.1 ng/mL (< 0.04)
[2020-12-01 10:58] LABS: Platelet Estimate Normal (Normal)
[2020-12-01 11:24] LABS: ABG Base Excess 7 mEq/L (-2 to 3); ABG HCO3 36 mEq/L (21-27); ABG Oxygen Saturation 83 % (95-98); ABG PCO2 76 mmHg (35-45); ABG PH 7.29 pH Units (7.32-7.45); ABG PO2 56 mmHg (85-104); ABG TCO2 39 mEq/L (20-26)
[2020-12-01] MEDS ORDERED: D10% in Water 500 ML IVC SCH (11:30)
[2020-12-01] MEDS ORDERED: Amiodarone Premix 360 MG/200 ML BAG IVC ONE ×2 (11:54→11:56)
[2020-12-01] MEDS ORDERED: *HR* Metoprolol 5 MG/5 ML VIAL IVP SCH (12:00)
[2020-12-01] MEDS ORDERED: Hydrocortisone Sodium Succ 100 MG/2 ML VIAL IVP SCH (12:00)
[2020-12-01 12:47] LABS: Sodium, Urine 13.8 mEq/L
[2020-12-01] MEDS ORDERED: *HR* LORazepam 2 MG/ML VIAL IVP PRN ×2 (14:24→16:10)
[2020-12-01] MEDS ORDERED: Glycopyrrolate 0.2 MG/ML VIAL IVP ONE (14:24)
[2020-12-01] MEDS ORDERED: *HR* FentaNYL (PF) 100 MCG/2 ML VIAL IVP PRN ×2 (14:25→16:10)
[2020-12-01] MEDS ORDERED: Scopolamine Patch 1.5 MG PATCH.TD72 TD SCH (14:30)
[2020-12-01] MEDS ORDERED: FentaNYL (PF) 1,000 MCG/100 ML IV.SOLN IVC SCH (14:30)
[2020-12-01] MEDS ORDERED: Ipratropium/Albuterol Neb 3 ML IH PRN (16:10)
[2020-12-01] MEDS ORDERED: Amiodarone Premix 360 MG/200 ML BAG IVC SCH (17:54)
[2020-12-01] MEDS ORDERED: Insulin LISPRO 300 UNITS/3 ML VIAL SUBQ SCH (21:00)
[2020-12-02] MEDS: FentaNYL (PF) 1,000 MCG/100 ML IV.SOLN IVC SCH ×2 (02:23→02:32)
[2020-12-02 08:39] VITALS: BP 68/51; PULSE 131; TEMP 99
[2020-12-02] MEDS ORDERED: Atropine 1% Opth Drops 100 DROP/5 ML BOTTLE SL PRN (09:42)
[2020-12-02] MEDS ORDERED: Haloperidol Lactate 5 MG/ML VIAL IVP PRN (09:43)
[2020-12-02 10:24] VITALS: O2SAT 92
[2020-12-04] MEDS ORDERED: Scopolamine Patch 1.5 MG PATCH.TD72 TD SCH (14:30)
== END 2020-12-02 21:12 | disposition expired | DRG 682 ==
LOC: 2NNU → SUATTDRO 17:55 → ICNU 12-01 09:26 → 2ANU 12-01 22:12
PROVIDERS: ADMIT Internal Medicine; ATTEND Internal Medicine